=== PATIENT | female | born 1975 | race Caucasian/White ===

== ENCOUNTER 2016-06-19 12:47 | Inpatient (IN) | payer MEDICAID ==
[~2016-06-19] VITALS: Ht 160 cm; Wt 84.1 kg
[~2016-06-19 12:47] MED LIST: CLON.3 PO; LITH300C3 PO; RISP3 PO; SERT50TA12 PO
[2016-06-19 17:50] VITALS: BP 133/87
[2016-06-19] MEDS ORDERED: PNEUMOCOCCAL VACCINE POLYVALENT 0.5 ML VIAL [PPSV23] IM ONE (18:15)
[2016-06-19] MEDS ORDERED: INFLUENZA VIRUS VACCINE QVS 2016-17 (3YR+)/PF 60 MCG/0.5 ML SYRINGE IM ONE (18:15)
[2016-06-19] MEDS: LITHIUM CARBONATE 300 MG CAPSULE PO SCH ×2 (18:55→19:29)
[2016-06-19] MEDS: RisperiDONE 3 MG TABLET PO SCH ×2 (18:55→19:29)
[2016-06-19 19:15] VITALS: BP 126/84
[2016-06-19] MEDS: LORazepam 2 MG TABLET PO PRN (19:36)
[2016-06-19] MEDS: SERTRALINE HCL 100 MG TABLET PO SCH (21:00)
[2016-06-20 00:55] VITALS: BP 117/96
[2016-06-20] MEDS: ZOLPIDEM TARTRATE 10 MG TABLET PO PRN ×2 (01:02→20:46)
[2016-06-20] MEDS: LORazepam 2 MG TABLET PO PRN ×4 (01:02→17:24)
[2016-06-20 06:30] VITALS: BP 121/68
[2016-06-20 08:17] VITALS: BP 128/86
[2016-06-20] MEDS: LITHIUM CARBONATE 300 MG CAPSULE PO SCH ×2 (09:00→17:00)
[2016-06-20] MEDS: RisperiDONE 3 MG TABLET PO SCH ×2 (09:00→17:00)
[2016-06-20] MEDS: NICOTINE 21 MG/24 HOUR PATCH TD SCH (09:11)
[2016-06-20 09:13] LABS: GLUCOSE, URINE (UA) NEGATIVE (NEGATIVE); KETONES,URINE 15 mg/dL (NEGATIVE); LEUKOCYTE ESTERASE ,URINE NEGATIVE (NEGATIVE); OCCULT BLOOD,URINE NEGATIVE (NEGATIVE); PROTEIN,URINE NEGATIVE (NEGATIVE)
[2016-06-20 09:15] LABS: ADD UA MICROSCOPIC YES; APPEARANCE,URINE CLOUDY (CLEAR)
[2016-06-20 09:41] LABS: AMORPHOUS SEDIMENT,UR Many /LPF (None Seen); CALCIUM OXALATE CRYSTALS,UR Few /LPF (None Seen); RBC,URINE 0-2 /HPF (0-2); SQUAMOUS EPITHELIAL CELL,UR Rare /LPF (None Seen); WBC,URINE 0-2 /HPF (0-5)
[2016-06-20 16:08] VITALS: BP 120/65
[2016-06-20] MEDS: SERTRALINE HCL 100 MG TABLET PO SCH (20:04)
[2016-06-21 00:13] VITALS: BP 122/98
[2016-06-21] MEDS: LORazepam 2 MG TABLET PO PRN ×4 (05:12→19:22)
[2016-06-21 05:18] VITALS: BP 140/90
[2016-06-21 08:02] LABS: BASOPHILS # (AUTO) 0.05 K/uL (0.00-0.20); BASOPHILS % (AUTO) 0.6 % (0.0-2.0); EOSINOPHILS # (AUTO) 0.11 K/uL (0.00-0.70); EOSINOPHILS % (AUTO) 1.39 % (1.0-6.0); HEMOGLOBIN 14.8 g/dL (12.0-16.0); LYMPHOCYTES # (AUTO) 2.9 K/uL (1.0-4.8); LYMPHOCYTES % (AUTO) 35.3 % (22.0-44.0); MEAN CORPUSCULAR HEMOGLOBIN 31.6 pg (26.0-34.0); MEAN CORPUSCULAR HGB CONC 34.4 G/dL (31.0-37.0); MEAN CORPUSCULAR VOLUME 92 fL (80-100); MONOCYTES # (AUTO) 0.6 K/uL (0.1-1.0); MONOCYTES % (AUTO) 6.9 % (2.0-9.0); NEUTROPHILS # (AUTO) 4.6 K/uL (1.8-7.7); NEUTROPHILS % (AUTO) 55.8 % (40.0-70.0); PLATELET COUNT (AUTO) 286 K/uL (150-450); RED BLOOD CELL COUNT(AUTO) 4.68 MIL/uL (4.00-5.20); RED CELL DISTRIBUTION WIDTH 13.3 % (11.5-14.5); WHITE BLOOD COUNT (AUTO) 8.2 K/uL (4.5-11.0)
[2016-06-21 08:06] VITALS: BP 118/72
[2016-06-21 08:08] LABS: ALANINE AMINOTRANSFERASE 22 U/L (12-78); ALBUMIN 3.9 g/dL (3.4-5.0); ANION GAP 11 mmol/L (8-16); ASPARTATE AMINOTRANSFERASE 14 U/L (15-37); BILIRUBIN,TOTAL 0.6 mg/dL (0.1-1.0); CALCIUM, TOTAL 8.5 mg/dL (8.8-10.5); CARBON DIOXIDE 24 mmol/L (22-29); CHLORIDE 103 mmol/L (98-107); CREATININE 0.88 mg/dL (0.60-1.30); GLOMERULAR FILTR. RATE CALC > 60 mL/min (>60); POTASSIUM 4.1 mmol/L (3.5-5.1); SODIUM SERUM 138 mmol/L (136-145); TOTAL PROTEIN, SERUM 7.1 g/dL (6.4-8.2); UREA NITROGEN, BLOOD 15 mg/dL (7-18)
[2016-06-21 08:36] LABS: LITHIUM < 0.20 mmol/L (0.60-1.20)
[2016-06-21] MEDS: RisperiDONE 3 MG TABLET PO SCH ×2 (09:00→16:29)
[2016-06-21] MEDS: LITHIUM CARBONATE 300 MG CAPSULE PO SCH ×2 (09:00→16:29)
[2016-06-21] MEDS: NICOTINE 21 MG/24 HOUR PATCH TD SCH (09:31)
[2016-06-21 16:09] VITALS: BP 120/89
[2016-06-21] MEDS: SERTRALINE HCL 100 MG TABLET PO SCH (20:10)
[2016-06-21] MEDS: ZOLPIDEM TARTRATE 10 MG TABLET PO PRN (20:10)
[2016-06-22 04:36] VITALS: BP 130/95
[2016-06-22] MEDS: LORazepam 2 MG TABLET PO PRN ×4 (05:17→20:38)
[2016-06-22] MEDS: NICOTINE 21 MG/24 HOUR PATCH TD SCH (08:45)
[2016-06-22] MEDS: RisperiDONE 3 MG TABLET PO SCH ×2 (08:46→16:08)
[2016-06-22] MEDS: LITHIUM CARBONATE 300 MG CAPSULE PO SCH ×2 (08:46→17:00)
[2016-06-22 08:50] VITALS: BP 124/85
[2016-06-22 16:00] VITALS: BP 127/88
[2016-06-22] MEDS: SERTRALINE HCL 100 MG TABLET PO SCH (20:34)
[2016-06-23 06:56] VITALS: BP 120/75
[2016-06-23] MEDS: LORazepam 2 MG TABLET PO PRN ×3 (07:22→17:18)
[2016-06-23 08:59] VITALS: BP 129/83
[2016-06-23] MEDS: LITHIUM CARBONATE 300 MG CAPSULE PO SCH (09:00)
[2016-06-23] MEDS: RisperiDONE 3 MG TABLET PO SCH ×2 (09:45→17:18)
[2016-06-23] MEDS: NICOTINE 21 MG/24 HOUR PATCH TD SCH (09:46)
[2016-06-23] MEDS ORDERED: HALOPERIDOL LACTATE 5 MG/ML VIAL IM ONE (14:00)
[2016-06-23] MEDS ORDERED: LORazepam 2 MG/ML VIAL IM ONE (14:00)
[2016-06-23] MEDS ORDERED: DiphenhydrAMINE HCL 50 MG/ML VIAL IM ONE (14:00)
[2016-06-23 16:01] VITALS: BP 145/102
[2016-06-23] MEDS: SERTRALINE HCL 100 MG TABLET PO SCH (20:44)
[2016-06-23] MEDS: ZOLPIDEM TARTRATE 10 MG TABLET PO PRN (20:44)
[2016-06-23] MEDS: OLANZapine 10 MG TABLET PO SCH (21:08)
[2016-06-24] MEDS: LORazepam 2 MG TABLET PO PRN ×4 (08:16→20:50)
[2016-06-24] MEDS: NICOTINE 21 MG/24 HOUR PATCH TD SCH (08:16)
[2016-06-24] MEDS: RisperiDONE 3 MG TABLET PO SCH ×2 (08:17→17:21)
[2016-06-24 08:54] VITALS: BP 122/79
[2016-06-24 16:08] VITALS: BP 143/104
[2016-06-24] MEDS ORDERED: CloNIDine HCL 0.1 MG TABLET PO PRN (19:30)
[2016-06-24] MEDS: ZOLPIDEM TARTRATE 10 MG TABLET PO PRN (20:26)
[2016-06-24] MEDS: SERTRALINE HCL 100 MG TABLET PO SCH (20:26)
[2016-06-24] MEDS: OLANZapine 10 MG TABLET PO SCH (20:26)
[2016-06-25 06:57] VITALS: BP 138/90
[2016-06-25 08:25] VITALS: BP 130/86
[2016-06-25] MEDS: NICOTINE 21 MG/24 HOUR PATCH TD SCH (08:27)
[2016-06-25] MEDS: RisperiDONE 3 MG TABLET PO SCH (08:27)
[2016-06-25] MEDS: LORazepam 2 MG TABLET PO PRN ×2 (08:52→12:52)
[2016-06-25] MEDS ORDERED: AmLODIPine BESYLATE 5 MG TABLET PO SCH (09:00)
[2016-06-25] MEDS ORDERED: OLAN10TA6 PO (12:28)
[2016-06-25] MEDS ORDERED: AMLO-511 PO (12:28)
[2016-06-25] MEDS ORDERED: SERT100T12 PO (12:28)
== END 2016-06-25 13:15 | disposition home or self-care (01) | DRG 750 ==
LOC: B2S 18:44 → EDSTATUS 18:52 → B2S 06-20 16:22 → B3A 06-23 14:15
DX: F25.1 Schizoaffective disorder, depressive type (principal); R45.851 Suicidal ideations; I10 Essential (primary) hypertension; F32.9 Major depressive disorder, single episode, unspecified; J45.909 Unspecified asthma, uncomplicated; F17.210 Nicotine dependence, cigarettes, uncomplicated; E78.1 Pure hyperglyceridemia; E87.6 Hypokalemia; F12.90 Cannabis use, unspecified, uncomplicated; Z86.718 Personal history of other venous thrombosis and embolism; Z71.89 Other specified counseling; Z88.6 Allergy status to analgesic agent; Z88.1 Allergy status to other antibiotic agents; Z88.2 Allergy status to sulfonamides; Z28.20 Immunization not carried out because of patient decision for unspecified reason
CPT/HCPCS: 87081; J1200; J1630; J2060

== ENCOUNTER 2016-06-30 11:46 | Inpatient (IN) | payer MEDICAID ==
[~2016-06-30] VITALS: Ht 160 cm; Wt 86.2 kg
[~2016-06-30 11:46] MED LIST changes: +AMLO-511 PO; -CLON.3 PO; -LITH300C3 PO; +OLAN10TA6 PO; +SERT100T12 PO; -SERT50TA12 PO
[2016-06-30] MEDS ORDERED: HALOPERIDOL 5 MG TABLET PO PRN (13:15)
[2016-06-30] MEDS: LORazepam 2 MG TABLET PO PRN (14:46)
[2016-06-30] MEDS ORDERED: PNEUMOCOCCAL VACCINE POLYVALENT 0.5 ML VIAL [PPSV23] IM ONE (15:00)
[2016-06-30] MEDS ORDERED: INFLUENZA VIRUS VACCINE QVS 2016-17 (3YR+)/PF 60 MCG/0.5 ML SYRINGE IM ONE (15:00)
[2016-06-30 15:20] VITALS: BP 109/54
[2016-06-30 16:18] VITALS: BP 109/72
[2016-06-30] MEDS: RisperiDONE 3 MG TABLET PO SCH (16:19)
[2016-06-30] MEDS: SERTRALINE HCL 100 MG TABLET PO SCH (20:16)
[2016-06-30] MEDS: OLANZapine 10 MG RAPDIS TABLET PO SCH (21:00)
[2016-07-01 05:15] VITALS: BP 124/85
[2016-07-01] MEDS: LORazepam 2 MG TABLET PO PRN ×3 (05:17→16:30)
[2016-07-01 09:05] VITALS: BP 128/76
[2016-07-01] MEDS: AmLODIPine BESYLATE 2.5 MG TABLET PO SCH (10:04)
[2016-07-01] MEDS: RisperiDONE 3 MG TABLET PO SCH ×2 (10:04→16:32)
[2016-07-01 16:10] VITALS: BP 116/67
[2016-07-01] MEDS: NICOTINE 21 MG/24 HOUR PATCH TD SCH (16:28)
[2016-07-01] MEDS: ZOLPIDEM TARTRATE 10 MG TABLET PO PRN (20:41)
[2016-07-01] MEDS: SERTRALINE HCL 100 MG TABLET PO SCH (20:41)
[2016-07-01] MEDS: OLANZapine 10 MG RAPDIS TABLET PO SCH (20:42)
[2016-07-02 00:32] VITALS: BP 116/66
[2016-07-02] MEDS: LORazepam 2 MG TABLET PO PRN ×3 (00:34→15:12)
[2016-07-02 08:37] VITALS: BP 129/92
[2016-07-02 08:51] LABS: BASOPHILS % (AUTO) 0.4 % (0.0-2.0); EOSINOPHILS % (AUTO) 1.2 % (1.0-6.0); HEMATOCRIT 43.9 % (36-46); HEMOGLOBIN 14.7 g/dL (12.0-16.0); LYMPHOCYTES # (AUTO) 2.6 K/uL (1.0-4.8); LYMPHOCYTES % (AUTO) 27.5 % (22.0-44.0); MEAN CORPUSCULAR HEMOGLOBIN 30.9 pg (26.0-34.0); MEAN CORPUSCULAR HGB CONC 33.5 G/dL (31.0-37.0); MEAN CORPUSCULAR VOLUME 92 fL (80-100); MONOCYTES # (AUTO) 0.5 K/uL (0.1-1.0); MONOCYTES % (AUTO) 5.2 % (2.0-9.0); NEUTROPHILS # (AUTO) 6.3 K/uL (1.8-7.7); NEUTROPHILS % (AUTO) 65.7 % (40.0-70.0); PLATELET COUNT (AUTO) 289 K/uL (150-450); RED BLOOD CELL COUNT(AUTO) 4.76 MIL/uL (4.00-5.20); RED CELL DISTRIBUTION WIDTH 13.6 % (11.5-14.5); WHITE BLOOD COUNT (AUTO) 9.5 K/uL (4.5-11.0)
[2016-07-02] MEDS ORDERED: DiphenhydrAMINE HCL 50 MG/ML VIAL ONE (09:02)
[2016-07-02] MEDS ORDERED: LORazepam 2 MG/ML VIAL ONE (09:02)
[2016-07-02] MEDS ORDERED: HALOPERIDOL LACTATE 5 MG/ML VIAL ONE (09:02)
[2016-07-02] MEDS: NICOTINE 21 MG/24 HOUR PATCH TD SCH (09:11)
[2016-07-02] MEDS: RisperiDONE 3 MG TABLET PO SCH ×2 (09:12→16:01)
[2016-07-02] MEDS: AmLODIPine BESYLATE 2.5 MG TABLET PO SCH (09:12)
[2016-07-02 09:13] LABS: ALANINE AMINOTRANSFERASE 25 U/L (12-78); ALBUMIN 3.6 g/dL (3.4-5.0); ANION GAP 12 mmol/L (8-16); ASPARTATE AMINOTRANSFERASE 15 U/L (15-37); BILIRUBIN,TOTAL 0.4 mg/dL (0.1-1.0); CALCIUM, TOTAL 8.4 mg/dL (8.8-10.5); CARBON DIOXIDE 23 mmol/L (22-29); CHLORIDE 104 mmol/L (98-107); CREATININE 0.78 mg/dL (0.60-1.30); GLOMERULAR FILTR. RATE CALC > 60 mL/min (>60); POTASSIUM 3.5 mmol/L (3.5-5.1); SODIUM SERUM 139 mmol/L (136-145); TOTAL PROTEIN, SERUM 7.1 g/dL (6.4-8.2); UREA NITROGEN, BLOOD 10 mg/dL (7-18)
[2016-07-02] MEDS ORDERED: DiphenhydrAMINE HCL 50 MG/ML VIAL IM ONE (09:30)
[2016-07-02] MEDS ORDERED: HALOPERIDOL LACTATE 5 MG/ML VIAL IM ONE (09:30)
[2016-07-02] MEDS ORDERED: LORazepam 2 MG/ML VIAL IM ONE (09:30)
[2016-07-02] MEDS: CloNIDine HCL 0.1 MG TABLET PO SCH (16:01)
[2016-07-02 16:21] VITALS: BP 132/77
[2016-07-02] MEDS: SERTRALINE HCL 100 MG TABLET PO SCH (20:23)
[2016-07-02] MEDS: RisperiDONE 2 MG TABLET PO SCH (20:23)
[2016-07-03 06:30] VITALS: BP 126/72
[2016-07-03] MEDS: LORazepam 2 MG TABLET PO PRN (06:48)
[2016-07-03 08:37] VITALS: BP 134/105
[2016-07-03] MEDS: NICOTINE 21 MG/24 HOUR PATCH TD SCH (08:44)
[2016-07-03] MEDS: CloNIDine HCL 0.1 MG TABLET PO SCH ×2 (08:44→16:09)
[2016-07-03] MEDS: RisperiDONE 3 MG TABLET PO SCH ×2 (08:44→16:09)
[2016-07-03 09:08] VITALS: BP 133/78
[2016-07-03] MEDS: TraMADol HCL 50 MG TABLET PO PRN ×2 (09:10→16:09)
[2016-07-03 10:10] VITALS: BP 128/75
[2016-07-03] MEDS ORDERED: HALOPERIDOL LACTATE 5 MG/ML VIAL ONE (10:11)
[2016-07-03] MEDS ORDERED: DiphenhydrAMINE HCL 50 MG/ML VIAL ONE (10:11)
[2016-07-03] MEDS ORDERED: HALOPERIDOL LACTATE 5 MG/ML VIAL IM ONE (10:15)
[2016-07-03] MEDS ORDERED: DiphenhydrAMINE HCL 50 MG/ML VIAL IM ONE (10:15)
[2016-07-03] MEDS ORDERED: LORazepam 2 MG TABLET PO PRN (10:30)
[2016-07-03 10:57] VITALS: BP 114/74
[2016-07-03 16:09] VITALS: BP 118/70
[2016-07-03] MEDS: SERTRALINE HCL 100 MG TABLET PO SCH (20:27)
[2016-07-03] MEDS: RisperiDONE 2 MG TABLET PO SCH (20:27)
[2016-07-04] MEDS: LORazepam 1 MG TABLET PO PRN ×3 (06:32→16:50)
[2016-07-04] MEDS: TraMADol HCL 50 MG TABLET PO PRN ×2 (06:33→13:44)
[2016-07-04] MEDS: NICOTINE 21 MG/24 HOUR PATCH TD SCH (08:45)
[2016-07-04] MEDS: CloNIDine HCL 0.1 MG TABLET PO SCH ×2 (08:45→16:18)
[2016-07-04] MEDS: RisperiDONE 3 MG TABLET PO SCH ×2 (08:45→16:18)
[2016-07-04 08:56] VITALS: BP 123/71
[2016-07-04 13:44] VITALS: BP 120/74
[2016-07-04 16:25] VITALS: BP 133/73
[2016-07-04] MEDS: ACETAMINOPHEN 325 MG TABLET PO PRN (17:35)
[2016-07-04] MEDS: SERTRALINE HCL 100 MG TABLET PO SCH (20:24)
[2016-07-04] MEDS: RisperiDONE 2 MG TABLET PO SCH (20:24)
[2016-07-04] MEDS: ZOLPIDEM TARTRATE 10 MG TABLET PO PRN (20:27)
[2016-07-05 05:33] VITALS: BP 126/93
[2016-07-05] MEDS: TraMADol HCL 50 MG TABLET PO PRN ×3 (05:39→18:06)
[2016-07-05] MEDS: LORazepam 1 MG TABLET PO PRN ×4 (05:39→19:30)
[2016-07-05] MEDS: RisperiDONE 3 MG TABLET PO SCH ×2 (09:33→16:21)
[2016-07-05] MEDS: NICOTINE 21 MG/24 HOUR PATCH TD SCH (09:33)
[2016-07-05 09:45] VITALS: BP 111/77
[2016-07-05] MEDS: CloNIDine HCL 0.1 MG TABLET PO SCH ×2 (09:54→16:21)
[2016-07-05 10:35] VITALS: BP 138/92
[2016-07-05] MEDS: ACETAMINOPHEN 325 MG TABLET PO PRN (13:10)
[2016-07-05 16:00] VITALS: BP 115/81
[2016-07-05 18:04] VITALS: BP 120/84
[2016-07-05] MEDS: SERTRALINE HCL 100 MG TABLET PO SCH (20:03)
[2016-07-05] MEDS: RisperiDONE 2 MG TABLET PO SCH (20:03)
[2016-07-05] MEDS: ZOLPIDEM TARTRATE 10 MG TABLET PO PRN (21:02)
[2016-07-06 01:20] VITALS: BP 113/76
[2016-07-06] MEDS: LORazepam 1 MG TABLET PO PRN ×4 (01:24→19:03)
[2016-07-06] MEDS: CloNIDine HCL 0.1 MG TABLET PO SCH ×2 (08:28→16:37)
[2016-07-06] MEDS: RisperiDONE 3 MG TABLET PO SCH ×2 (08:28→16:25)
[2016-07-06] MEDS: SERTRALINE HCL 100 MG TABLET PO SCH (08:28)
[2016-07-06] MEDS: NICOTINE 21 MG/24 HOUR PATCH TD SCH (08:29)
[2016-07-06] MEDS: TraMADol HCL 50 MG TABLET PO PRN ×2 (08:38→15:49)
[2016-07-06 08:55] VITALS: BP 126/81
[2016-07-06] MEDS ORDERED: MAGNESIUM HYDROXIDE SUSPENSION 30 ML UDCUP PO PRN (15:15)
[2016-07-06 15:49] VITALS: BP 120/80
[2016-07-06 16:51] VITALS: BP 115/70
[2016-07-06] MEDS: RisperiDONE 2 MG TABLET PO SCH (20:41)
[2016-07-06] MEDS: ZOLPIDEM TARTRATE 10 MG TABLET PO PRN (21:01)
[2016-07-07 07:01] VITALS: BP 132/82
[2016-07-07] MEDS: LORazepam 1 MG TABLET PO PRN (07:16)
[2016-07-07 08:53] VITALS: BP 127/94
[2016-07-07] MEDS: SERTRALINE HCL 100 MG TABLET PO SCH (09:16)
[2016-07-07] MEDS: CloNIDine HCL 0.1 MG TABLET PO SCH (09:16)
[2016-07-07] MEDS: NICOTINE 21 MG/24 HOUR PATCH TD SCH (09:16)
[2016-07-07] MEDS: RisperiDONE 3 MG TABLET PO SCH (09:16)
[2016-07-07] MEDS: TraMADol HCL 50 MG TABLET PO PRN (09:16)
[2016-07-07] MEDS ORDERED: CLON.1 PO (09:19)
[2016-07-07] MEDS ORDERED: SERT100T12 PO (09:19)
== END 2016-07-07 10:50 | disposition home or self-care (01) | DRG 750 ==
LOC: B3A 14:16 → EDSTATUS 14:18 → B3A 07-03 16:49
DX: F25.1 Schizoaffective disorder, depressive type (principal); R45.851 Suicidal ideations; I10 Essential (primary) hypertension; F12.90 Cannabis use, unspecified, uncomplicated; J45.909 Unspecified asthma, uncomplicated; F41.9 Anxiety disorder, unspecified; Z88.2 Allergy status to sulfonamides; Z86.718 Personal history of other venous thrombosis and embolism; Z88.8 Allergy status to other drugs, medicaments and biological substances; Z79.899 Other long term (current) drug therapy; Z28.21 Immunization not carried out because of patient refusal
CPT/HCPCS: 73502; 87081; J1200; J1630; J2060

== ENCOUNTER 2016-07-13 18:04 | Inpatient (IN) | payer MEDICAID ==
[~2016-07-13] VITALS: Ht 162.6 cm; Wt 87.1 kg
[~2016-07-13 18:04] MED LIST changes: -AMLO-511 PO; +CLON.1 PO; -OLAN10TA6 PO
[2016-07-13] MEDS ORDERED: INFLUENZA VIRUS VACCINE QVS 2016-17 (3YR+)/PF 60 MCG/0.5 ML SYRINGE IM ONE (18:30)
[2016-07-13] MEDS ORDERED: LORazepam 2 MG TABLET PO PRN (18:30)
[2016-07-13] MEDS ORDERED: PNEUMOCOCCAL VACCINE POLYVALENT 0.5 ML VIAL [PPSV23] IM ONE (18:30)
[2016-07-13 19:23] VITALS: BP 99/67
[2016-07-13 20:31] VITALS: BP 102/69
[2016-07-14 06:02] VITALS: BP 108/63
[2016-07-14] MEDS: NICOTINE 21 MG/24 HOUR PATCH TD SCH (08:05)
[2016-07-14 08:06] LABS: BASOPHILS % (AUTO) 0.6 % (0.0-2.0); EOSINOPHILS % (AUTO) 2.2 % (1.0-6.0); HEMATOCRIT 44.4 % (36-46); HEMOGLOBIN 14.6 g/dL (12.0-16.0); LYMPHOCYTES # (AUTO) 3.4 K/uL (1.0-4.8); LYMPHOCYTES % (AUTO) 34.1 % (22.0-44.0); MEAN CORPUSCULAR HEMOGLOBIN 30.7 pg (26.0-34.0); MEAN CORPUSCULAR HGB CONC 32.9 G/dL (31.0-37.0); MEAN CORPUSCULAR VOLUME 93 fL (80-100); MONOCYTES # (AUTO) 0.6 K/uL (0.1-1.0); MONOCYTES % (AUTO) 5.9 % (2.0-9.0); NEUTROPHILS # (AUTO) 5.6 K/uL (1.8-7.7); NEUTROPHILS % (AUTO) 57.2 % (40.0-70.0); PLATELET COUNT (AUTO) 285 K/uL (150-450); RED BLOOD CELL COUNT(AUTO) 4.76 MIL/uL (4.00-5.20); WHITE BLOOD COUNT (AUTO) 9.9 K/uL (4.5-11.0)
[2016-07-14] MEDS ORDERED: LORazepam 2 MG/ML VIAL ONE (08:11)
[2016-07-14] MEDS ORDERED: DiphenhydrAMINE HCL 50 MG/ML VIAL ONE ×2 (08:12→08:13)
[2016-07-14] MEDS ORDERED: HALOPERIDOL LACTATE 5 MG/ML VIAL ONE (08:12)
[2016-07-14] MEDS ORDERED: DiphenhydrAMINE HCL 50 MG/ML VIAL IM ONE ×3 (08:15)
[2016-07-14] MEDS ORDERED: HALOPERIDOL LACTATE 5 MG/ML VIAL IM ONE ×2 (08:15)
[2016-07-14 08:38] LABS: HEMOGLOBIN A1C 5.2 % (4.5-6.2)
[2016-07-14 08:40] LABS: ALANINE AMINOTRANSFERASE 24 U/L (12-78); ALBUMIN 3.6 g/dL (3.4-5.0); ANION GAP 7 mmol/L (8-16); ASPARTATE AMINOTRANSFERASE 11 U/L (15-37); BILIRUBIN,TOTAL 0.2 mg/dL (0.1-1.0); CALCIUM, TOTAL 8.6 mg/dL (8.8-10.5); CARBON DIOXIDE 26 mmol/L (22-29); CHLORIDE 105 mmol/L (98-107); CHOL/HDL RATIO 4.5 (3.9-5.7); CREATININE 0.92 mg/dL (0.60-1.30); GLOMERULAR FILTR. RATE CALC > 60 mL/min (>60); POTASSIUM 4.2 mmol/L (3.5-5.1); SODIUM SERUM 138 mmol/L (136-145); THYROID STIMULATING HORMONE 0.63 uIU/mL (0.36-3.74); TOTAL PROTEIN, SERUM 6.5 g/dL (6.4-8.2); UREA NITROGEN, BLOOD 11 mg/dL (7-18)
[2016-07-14 08:48] VITALS: BP 107/61
[2016-07-14] MEDS: HydrOXYzine PAMOATE 25 MG CAPSULE PO PRN (10:32)
[2016-07-14 11:38] LABS: APPEARANCE,URINE CLEAR (CLEAR); GLUCOSE, URINE (UA) NEGATIVE (NEGATIVE); KETONES,URINE NEGATIVE (NEGATIVE); LEUKOCYTE ESTERASE ,URINE NEGATIVE (NEGATIVE); OCCULT BLOOD,URINE NEGATIVE (NEGATIVE); PH,URINE 8.5 (5.0-8.0); PROTEIN,URINE NEGATIVE (NEGATIVE)
[2016-07-14 11:40] LABS: ADD UA MICROSCOPIC NO
[2016-07-14] MEDS ORDERED: ACETAMINOPHEN 325 MG TABLET PO PRN (12:00)
[2016-07-14] MEDS ORDERED: IBUPROFEN 600 MG TABLET PO PRN (12:00)
[2016-07-14] MEDS ORDERED: HydrOXYzine PAMOATE 25 MG CAPSULE PO ONE (12:30)
[2016-07-14 16:01] VITALS: BP 117/63
[2016-07-14] MEDS: RisperiDONE 3 MG TABLET PO SCH (16:49)
[2016-07-15] MEDS ORDERED: HALOPERIDOL LACTATE 5 MG/ML VIAL ONE (06:15)
[2016-07-15] MEDS ORDERED: DiphenhydrAMINE HCL 50 MG/ML VIAL IM ONE (06:15)
[2016-07-15] MEDS ORDERED: DiphenhydrAMINE HCL 50 MG/ML VIAL ONE (06:15)
[2016-07-15] MEDS ORDERED: HALOPERIDOL LACTATE 5 MG/ML VIAL IM ONE ×2 (06:15→07:15)
[2016-07-15] MEDS: RisperiDONE 3 MG TABLET PO SCH ×2 (08:49→16:44)
[2016-07-15] MEDS: NICOTINE 21 MG/24 HOUR PATCH TD SCH (08:49)
[2016-07-15] MEDS: SERTRALINE HCL 100 MG TABLET PO SCH (08:49)
[2016-07-15] MEDS: HydrOXYzine PAMOATE 25 MG CAPSULE PO PRN ×2 (12:15→16:45)
[2016-07-15 16:24] VITALS: BP 113/73
[2016-07-15] MEDS: ZOLPIDEM TARTRATE 10 MG TABLET PO PRN (21:03)
[2016-07-16] MEDS: SERTRALINE HCL 100 MG TABLET PO SCH (08:25)
[2016-07-16] MEDS: RisperiDONE 3 MG TABLET PO SCH ×2 (08:25→16:08)
[2016-07-16] MEDS: NICOTINE 21 MG/24 HOUR PATCH TD SCH (08:26)
[2016-07-16 08:33] VITALS: BP 153/88
[2016-07-16] MEDS: HydrOXYzine PAMOATE 25 MG CAPSULE PO PRN (08:48)
[2016-07-16] MEDS: LORazepam 2 MG TABLET PO PRN ×2 (13:52→17:54)
[2016-07-16 16:32] VITALS: BP 131/72
[2016-07-16 18:35] VITALS: BP 129/77
[2016-07-17] MEDS: NICOTINE 21 MG/24 HOUR PATCH TD SCH (08:15)
[2016-07-17] MEDS: RisperiDONE 3 MG TABLET PO SCH ×2 (08:16→16:40)
[2016-07-17] MEDS: SERTRALINE HCL 100 MG TABLET PO SCH (08:16)
[2016-07-17] MEDS: LORazepam 2 MG TABLET PO PRN ×3 (08:16→16:32)
[2016-07-17 08:49] VITALS: BP 117/86
[2016-07-17 14:10] VITALS: BP 114/74
[2016-07-17] MEDS: TraMADol HCL 50 MG TABLET PO PRN (14:10)
[2016-07-17 16:27] VITALS: BP 126/87
[2016-07-18] MEDS: LORazepam 2 MG TABLET PO PRN ×4 (06:55→16:50)
[2016-07-18 08:27] VITALS: BP 120/85
[2016-07-18] MEDS: TraMADol HCL 50 MG TABLET PO PRN ×2 (08:56→19:36)
[2016-07-18] MEDS: RisperiDONE 3 MG TABLET PO SCH ×2 (08:58→16:49)
[2016-07-18] MEDS: SERTRALINE HCL 100 MG TABLET PO SCH (08:59)
[2016-07-18] MEDS: NICOTINE 21 MG/24 HOUR PATCH TD SCH (08:59)
[2016-07-18 16:11] VITALS: BP 130/101
[2016-07-18] MEDS: ZOLPIDEM TARTRATE 10 MG TABLET PO PRN (21:21)
[2016-07-19 04:40] VITALS: BP 128/87
[2016-07-19] MEDS: LORazepam 2 MG TABLET PO PRN ×3 (04:47→16:15)
[2016-07-19 08:01] VITALS: BP 112/77
[2016-07-19] MEDS: NICOTINE 21 MG/24 HOUR PATCH TD SCH (09:15)
[2016-07-19] MEDS: SERTRALINE HCL 100 MG TABLET PO SCH (09:16)
[2016-07-19] MEDS: RisperiDONE 3 MG TABLET PO SCH ×2 (09:16→16:15)
[2016-07-19] MEDS: TraMADol HCL 50 MG TABLET PO PRN (10:15)
[2016-07-19 16:09] VITALS: BP 131/84
[2016-07-20] MEDS: LORazepam 2 MG TABLET PO PRN ×4 (04:35→16:44)
[2016-07-20 04:36] VITALS: BP 136/90
[2016-07-20] MEDS: NICOTINE 21 MG/24 HOUR PATCH TD SCH (08:00)
[2016-07-20] MEDS: RisperiDONE 3 MG TABLET PO SCH ×2 (08:00→16:35)
[2016-07-20] MEDS: SERTRALINE HCL 100 MG TABLET PO SCH (08:01)
[2016-07-20 08:35] VITALS: BP 133/73
[2016-07-20] MEDS: TraMADol HCL 50 MG TABLET PO PRN (10:43)
[2016-07-20 10:44] VITALS: BP 137/96
[2016-07-20 16:18] VITALS: BP 143/90
[2016-07-20] MEDS: ZOLPIDEM TARTRATE 10 MG TABLET PO PRN (20:30)
[2016-07-21 06:19] VITALS: BP 122/93
[2016-07-21] MEDS: LORazepam 2 MG TABLET PO PRN (06:25)
[2016-07-21 08:01] VITALS: BP 134/70
[2016-07-21] MEDS: SERTRALINE HCL 100 MG TABLET PO SCH (09:17)
[2016-07-21] MEDS: RisperiDONE 3 MG TABLET PO SCH (09:17)
[2016-07-21] MEDS: NICOTINE 21 MG/24 HOUR PATCH TD SCH (09:17)
== END 2016-07-21 09:32 | disposition home or self-care (01) | DRG 750 ==
LOC: B3A 18:22 → EDSTATUS 18:27
PROVIDERS: ADMIT Psychiatry & Neurology Child & Adolescent Psychiatry
DX: F25.0 Schizoaffective disorder, bipolar type (principal); R56.9 Unspecified convulsions; R45.851 Suicidal ideations; I10 Essential (primary) hypertension; F17.290 Nicotine dependence, other tobacco product, uncomplicated; F12.90 Cannabis use, unspecified, uncomplicated; J45.909 Unspecified asthma, uncomplicated; S60.221A Contusion of right hand, initial encounter; X58.XXXA Exposure to other specified factors, initial encounter; Z91.19 Patient's noncompliance with other medical treatment and regimen; Z86.718 Personal history of other venous thrombosis and embolism; Z88.2 Allergy status to sulfonamides; Z88.8 Allergy status to other drugs, medicaments and biological substances; Z79.899 Other long term (current) drug therapy; Y93.89 Activity, other specified; Y92.89 Other specified places as the place of occurrence of the external cause; Y99.8 Other external cause status; Z28.21 Immunization not carried out because of patient refusal
CPT/HCPCS: 83036; 84439; 84443; 87081; 90471; J1200; J1630; J2060

== ENCOUNTER 2016-07-14 10:11 | Emergency (ER) | payer MEDICAID ==
[~2016-07-14] VITALS: Ht 162.6 cm; Wt 87.1 kg
[2016-07-14 10:37] VITALS: BP 106/67
== END 2016-07-14 11:20 | disposition home or self-care (01) ==
LOC: EMS 10:13 → EEVIPCON 10:13 → EMS 11:20
DX: S60.221A Contusion of right hand, initial encounter (principal); J45.909 Unspecified asthma, uncomplicated; I10 Essential (primary) hypertension; F17.210 Nicotine dependence, cigarettes, uncomplicated; Z88.1 Allergy status to other antibiotic agents; Z88.6 Allergy status to analgesic agent; W22.01XA Walked into wall, initial encounter; Y93.89 Activity, other specified; Y92.239 Unspecified place in hospital as the place of occurrence of the external cause; Y99.8 Other external cause status
CPT/HCPCS: 99284

== ENCOUNTER 2016-07-23 06:27 | Inpatient (IN) | payer MEDICAID ==
[~2016-07-23] VITALS: Ht 162.6 cm; Wt 89.4 kg
[~2016-07-23 06:27] MED LIST changes: -CLON.1 PO
[2016-07-23 09:11] VITALS: BP 101/67
[2016-07-23] MEDS ORDERED: HALOPERIDOL 5 MG TABLET PO PRN (09:15)
[2016-07-23] MEDS ORDERED: ZOLPIDEM TARTRATE 10 MG TABLET PO PRN (09:15)
[2016-07-23] MEDS ORDERED: INFLUENZA VIRUS VACCINE QVS 2016-17 (3YR+)/PF 60 MCG/0.5 ML SYRINGE IM ONE (10:15)
[2016-07-23] MEDS: LORazepam 2 MG TABLET PO PRN ×2 (10:21→15:41)
[2016-07-23 10:39] VITALS: BP 105/73
[2016-07-23] MEDS: RisperiDONE 3 MG TABLET PO SCH (16:01)
[2016-07-23 16:14] VITALS: BP 112/73
[2016-07-24 04:05] VITALS: BP 117/79
[2016-07-24] MEDS: LORazepam 2 MG TABLET PO PRN ×2 (04:12→09:46)
[2016-07-24 08:14] LABS: BASOPHILS % (AUTO) 0.7 % (0.0-2.0); EOSINOPHILS % (AUTO) 2.2 % (1.0-6.0); HEMATOCRIT 43.8 % (36-46); HEMOGLOBIN 14.4 g/dL (12.0-16.0); MEAN CORPUSCULAR HEMOGLOBIN 30.7 pg (26.0-34.0); MEAN CORPUSCULAR VOLUME 93 fL (80-100); MONOCYTES # (AUTO) 0.4 K/uL (0.1-1.0); MONOCYTES % (AUTO) 5.1 % (2.0-9.0); NEUTROPHILS # (AUTO) 4.1 K/uL (1.8-7.7); PLATELET COUNT (AUTO) 262 K/uL (150-450); RED CELL DISTRIBUTION WIDTH 13.4 % (11.5-14.5); WHITE BLOOD COUNT (AUTO) 7.8 K/uL (4.5-11.0)
[2016-07-24 08:17] VITALS: BP 111/77
[2016-07-24 08:35] LABS: GLUCOSE, URINE (UA) NEGATIVE (NEGATIVE); KETONES,URINE NEGATIVE (NEGATIVE); LEUKOCYTE ESTERASE ,URINE NEGATIVE (NEGATIVE); OCCULT BLOOD,URINE NEGATIVE (NEGATIVE); PROTEIN,URINE NEGATIVE (NEGATIVE)
[2016-07-24 08:36] LABS: ADD UA MICROSCOPIC NO; APPEARANCE,URINE HAZY (CLEAR)
[2016-07-24 08:44] LABS: ALANINE AMINOTRANSFERASE 21 U/L (12-78); ALBUMIN 3.5 g/dL (3.4-5.0); ANION GAP 8 mmol/L (8-16); ASPARTATE AMINOTRANSFERASE 14 U/L (15-37); BILIRUBIN,TOTAL 0.3 mg/dL (0.1-1.0); CALCIUM, TOTAL 8.6 mg/dL (8.8-10.5); CARBON DIOXIDE 28 mmol/L (22-29); CHLORIDE 106 mmol/L (98-107); CREATININE 0.91 mg/dL (0.60-1.30); GLOMERULAR FILTR. RATE CALC > 60 mL/min (>60); POTASSIUM 4.1 mmol/L (3.5-5.1); SODIUM SERUM 142 mmol/L (136-145); TOTAL PROTEIN, SERUM 6.6 g/dL (6.4-8.2); UREA NITROGEN, BLOOD 13 mg/dL (7-18)
[2016-07-24] MEDS ORDERED: SERTRALINE HCL 100 MG TABLET PO SCH (09:00)
[2016-07-24] MEDS: RisperiDONE 3 MG TABLET PO SCH (09:46)
== END 2016-07-24 14:45 | disposition home or self-care (01) | DRG 750 ==
LOC: EDSTATUS 09:03 → B3A 09:18
DX: F25.0 Schizoaffective disorder, bipolar type (principal); R45.851 Suicidal ideations; G40.909 Epilepsy, unspecified, not intractable, without status epilepticus; I10 Essential (primary) hypertension; J45.909 Unspecified asthma, uncomplicated; E78.1 Pure hyperglyceridemia; F12.90 Cannabis use, unspecified, uncomplicated; F17.200 Nicotine dependence, unspecified, uncomplicated; Z79.899 Other long term (current) drug therapy; Z28.21 Immunization not carried out because of patient refusal; Z86.718 Personal history of other venous thrombosis and embolism; Z91.410 Personal history of adult physical and sexual abuse; Z91.411 Personal history of adult psychological abuse
CPT/HCPCS: 80307; 87081; 90471

== ENCOUNTER 2016-08-03 12:43 | Inpatient (IN) | payer MEDICAID ==
[~2016-08-03] VITALS: Ht 162.6 cm; Wt 85.1 kg
[2016-08-03 14:39] VITALS: BP 103/77
[2016-08-03] MEDS: SERTRALINE HCL 100 MG TABLET PO SCH (14:45)
[2016-08-03] MEDS: LORazepam 2 MG TABLET PO PRN (16:00)
[2016-08-03] MEDS: RisperiDONE 3 MG TABLET PO SCH (16:05)
[2016-08-03 16:10] VITALS: BP 110/74
[2016-08-03] MEDS ORDERED: INFLUENZA VIRUS VACCINE QVS 2016-17 (3YR+)/PF 60 MCG/0.5 ML SYRINGE IM ONE (17:30)
[2016-08-03] MEDS ORDERED: PNEUMOCOCCAL VACCINE POLYVALENT 0.5 ML VIAL [PPSV23] IM ONE (17:30)
[2016-08-03 21:40] VITALS: BP 110/74
[2016-08-04 05:06] VITALS: BP 120/71
[2016-08-04] MEDS: LORazepam 2 MG TABLET PO PRN ×3 (05:08→19:12)
[2016-08-04 08:18] LABS: BASOPHILS % (AUTO) 0.6 % (0.0-2.0); EOSINOPHILS % (AUTO) 1.4 % (1.0-6.0); HEMATOCRIT 45.6 % (36-46); LYMPHOCYTES # (AUTO) 2.3 K/uL (1.0-4.8); LYMPHOCYTES % (AUTO) 30.6 % (22.0-44.0); MEAN CORPUSCULAR HEMOGLOBIN 30.6 pg (26.0-34.0); MEAN CORPUSCULAR HGB CONC 32.9 G/dL (31.0-37.0); MEAN CORPUSCULAR VOLUME 93 fL (80-100); MONOCYTES # (AUTO) 0.4 K/uL (0.1-1.0); MONOCYTES % (AUTO) 5.6 % (2.0-9.0); NEUTROPHILS # (AUTO) 4.7 K/uL (1.8-7.7); NEUTROPHILS % (AUTO) 61.8 % (40.0-70.0); PLATELET COUNT (AUTO) 285 K/uL (150-450); RED BLOOD CELL COUNT(AUTO) 4.91 MIL/uL (4.00-5.20); WHITE BLOOD COUNT (AUTO) 7.6 K/uL (4.5-11.0)
[2016-08-04 08:22] VITALS: BP 114/68
[2016-08-04 08:35] LABS: ALANINE AMINOTRANSFERASE 16 U/L (12-78); ALBUMIN 3.7 g/dL (3.4-5.0); ANION GAP 11 mmol/L (8-16); ASPARTATE AMINOTRANSFERASE 11 U/L (15-37); BILIRUBIN,TOTAL 0.5 mg/dL (0.1-1.0); CALCIUM, TOTAL 8.5 mg/dL (8.8-10.5); CARBON DIOXIDE 25 mmol/L (22-29); CHLORIDE 106 mmol/L (98-107); CHOL/HDL RATIO 4.7 (3.9-5.7); CREATININE 0.82 mg/dL (0.60-1.30); GLOMERULAR FILTR. RATE CALC > 60 mL/min (>60); POTASSIUM 3.8 mmol/L (3.5-5.1); SODIUM SERUM 142 mmol/L (136-145); TOTAL PROTEIN, SERUM 7.4 g/dL (6.4-8.2); UREA NITROGEN, BLOOD 11 mg/dL (7-18)
[2016-08-04] MEDS: SERTRALINE HCL 100 MG TABLET PO SCH (08:43)
[2016-08-04] MEDS: NICOTINE 21 MG/24 HOUR PATCH TD SCH (08:43)
[2016-08-04] MEDS: RisperiDONE 3 MG TABLET PO SCH ×2 (08:43→16:05)
[2016-08-04 09:48] VITALS: BP 114/68
[2016-08-04 16:02] VITALS: BP 119/76
[2016-08-05 00:04] VITALS: BP 128/86
[2016-08-05] MEDS: ZOLPIDEM TARTRATE 10 MG TABLET PO PRN ×2 (00:05→20:18)
[2016-08-05 08:01] VITALS: BP 123/79
[2016-08-05] MEDS: SERTRALINE HCL 100 MG TABLET PO SCH (08:18)
[2016-08-05] MEDS: RisperiDONE 3 MG TABLET PO SCH ×2 (08:19→16:10)
[2016-08-05] MEDS: NICOTINE 21 MG/24 HOUR PATCH TD SCH (08:19)
[2016-08-05] MEDS: LORazepam 2 MG TABLET PO PRN ×3 (08:19→16:22)
[2016-08-05] MEDS ORDERED: ACETAMINOPHEN 500 MG TABLET PO PRN (13:45)
[2016-08-05 16:22] VITALS: BP 129/86
[2016-08-06] MEDS: LORazepam 2 MG TABLET PO PRN ×3 (06:51→18:28)
[2016-08-06 07:01] VITALS: BP 120/78
[2016-08-06] MEDS: RisperiDONE 3 MG TABLET PO SCH ×2 (08:29→17:00)
[2016-08-06] MEDS: NICOTINE 21 MG/24 HOUR PATCH TD SCH (08:29)
[2016-08-06] MEDS: SERTRALINE HCL 100 MG TABLET PO SCH (08:29)
[2016-08-06 08:47] VITALS: BP 130/80
[2016-08-06 17:28] VITALS: BP 130/86
[2016-08-06 18:03] VITALS: BP 129/90
[2016-08-06] MEDS: ZOLPIDEM TARTRATE 10 MG TABLET PO PRN (21:06)
[2016-08-07] MEDS: LORazepam 2 MG TABLET PO PRN ×4 (06:01→18:11)
[2016-08-07 06:28] VITALS: BP 128/82
[2016-08-07 08:11] VITALS: BP 109/54
[2016-08-07] MEDS: RisperiDONE 3 MG TABLET PO SCH ×2 (08:30→16:38)
[2016-08-07] MEDS: SERTRALINE HCL 100 MG TABLET PO SCH (08:30)
[2016-08-07] MEDS: NICOTINE 21 MG/24 HOUR PATCH TD SCH (08:30)
[2016-08-07] MEDS ORDERED: TUBERCULIN, PURIFIED PROTEIN DERIVATIVE 5 TU/0.1 ML SYG ID ONE (12:00)
[2016-08-07 16:11] VITALS: BP 131/85
[2016-08-07] MEDS: ZOLPIDEM TARTRATE 10 MG TABLET PO PRN (20:22)
[2016-08-08] MEDS: LORazepam 2 MG TABLET PO PRN ×3 (06:17→16:09)
[2016-08-08 07:00] VITALS: BP 113/72
[2016-08-08 08:29] VITALS: BP 115/75
[2016-08-08] MEDS: NICOTINE 21 MG/24 HOUR PATCH TD SCH (09:46)
[2016-08-08] MEDS: RisperiDONE 3 MG TABLET PO SCH ×2 (09:46→16:10)
[2016-08-08] MEDS: SERTRALINE HCL 100 MG TABLET PO SCH (09:46)
[2016-08-08] MEDS: HALOPERIDOL 5 MG TABLET PO PRN (16:09)
[2016-08-08 16:19] VITALS: BP 137/98
[2016-08-08] MEDS: ZOLPIDEM TARTRATE 10 MG TABLET PO PRN (20:53)
[2016-08-09 05:45] VITALS: BP 129/93
[2016-08-09] MEDS: LORazepam 2 MG TABLET PO PRN ×3 (05:49→18:26)
[2016-08-09] MEDS: NICOTINE 21 MG/24 HOUR PATCH TD SCH (08:24)
[2016-08-09] MEDS: RisperiDONE 3 MG TABLET PO SCH ×2 (08:24→16:11)
[2016-08-09] MEDS: SERTRALINE HCL 100 MG TABLET PO SCH (08:24)
[2016-08-09 09:09] VITALS: BP 108/67
[2016-08-09 16:10] VITALS: BP 132/91
[2016-08-09] MEDS: HALOPERIDOL 5 MG TABLET PO PRN (18:26)
[2016-08-09] MEDS: ZOLPIDEM TARTRATE 10 MG TABLET PO PRN (21:05)
[2016-08-10] MEDS: LORazepam 2 MG TABLET PO PRN ×3 (06:41→16:56)
[2016-08-10 06:50] VITALS: BP 117/71
[2016-08-10 08:15] VITALS: BP 120/66
[2016-08-10] MEDS: SERTRALINE HCL 100 MG TABLET PO SCH (08:33)
[2016-08-10] MEDS: NICOTINE 21 MG/24 HOUR PATCH TD SCH (08:33)
[2016-08-10] MEDS: RisperiDONE 3 MG TABLET PO SCH ×2 (08:33→16:56)
[2016-08-10 16:07] VITALS: BP 130/95
[2016-08-10] MEDS: HALOPERIDOL 5 MG TABLET PO PRN (16:56)
[2016-08-11 06:41] VITALS: BP 115/74
[2016-08-11] MEDS: LORazepam 2 MG TABLET PO PRN (06:48)
[2016-08-11] MEDS: RisperiDONE 3 MG TABLET PO SCH (08:21)
[2016-08-11] MEDS: SERTRALINE HCL 100 MG TABLET PO SCH (08:21)
[2016-08-11] MEDS: NICOTINE 21 MG/24 HOUR PATCH TD SCH (08:22)
[2016-08-11 08:38] VITALS: BP 124/93
[2016-08-11] MEDS ORDERED: LORATADINE 10 MG TABLET PO SCH (09:00)
[2016-08-11] MEDS ORDERED: LORA10TA7 PO (10:52)
== END 2016-08-11 11:45 | disposition home or self-care (01) | DRG 750 ==
LOC: B2S 14:23 → EDSTATUS 14:28 → B2S 08-04 15:43 → B3A 08-05 13:52
DX: F25.0 Schizoaffective disorder, bipolar type (principal); I10 Essential (primary) hypertension; E78.1 Pure hyperglyceridemia; E87.6 Hypokalemia; F17.210 Nicotine dependence, cigarettes, uncomplicated; F12.10 Cannabis abuse, uncomplicated; Z79.899 Other long term (current) drug therapy; Z91.5 Personal history of self-harm; Z88.2 Allergy status to sulfonamides; Z88.6 Allergy status to analgesic agent; Z88.1 Allergy status to other antibiotic agents; Z28.21 Immunization not carried out because of patient refusal
CPT/HCPCS: 72170; 84436; 84439; 87081; 90471

== ENCOUNTER 2016-08-17 12:24 | Inpatient (IN) | payer MEDICAID ==
[~2016-08-17] VITALS: Ht 162.6 cm; Wt 81.2 kg
[~2016-08-17 12:24] MED LIST changes: +LORA10TA7 PO
[2016-08-17 13:48] VITALS: BP 91/56
[2016-08-17] MEDS ORDERED: PNEUMOCOCCAL VACCINE POLYVALENT 0.5 ML VIAL [PPSV23] IM ONE (16:30)
[2016-08-17] MEDS ORDERED: INFLUENZA VIRUS VACCINE QVS 2016-17 (3YR+)/PF 60 MCG/0.5 ML SYRINGE IM ONE (16:30)
[2016-08-17] MEDS: SERTRALINE HCL 100 MG TABLET PO SCH (16:31)
[2016-08-17 16:37] VITALS: BP 98/60
[2016-08-17 22:29] VITALS: BP 102/62
[2016-08-18 05:25] VITALS: BP 112/65
[2016-08-18] MEDS: LORazepam 2 MG TABLET PO PRN ×4 (05:28→20:18)
[2016-08-18 07:16] LABS: BASOPHILS # (AUTO) 0.04 K/uL (0.00-0.20); BASOPHILS % (AUTO) 0.5 % (0.0-2.0); EOSINOPHILS # (AUTO) 0.19 K/uL (0.00-0.70); HEMATOCRIT 40.3 % (36-46); HEMOGLOBIN 13.8 g/dL (12.0-16.0); LYMPHOCYTES # (AUTO) 3.2 K/uL (1.0-4.8); LYMPHOCYTES % (AUTO) 37.8 % (22.0-44.0); MEAN CORPUSCULAR HEMOGLOBIN 31.5 pg (26.0-34.0); MEAN CORPUSCULAR HGB CONC 34.2 G/dL (31.0-37.0); MEAN CORPUSCULAR VOLUME 92 fL (80-100); MONOCYTES # (AUTO) 0.4 K/uL (0.1-1.0); MONOCYTES % (AUTO) 4.8 % (2.0-9.0); NEUTROPHILS # (AUTO) 4.6 K/uL (1.8-7.7); NEUTROPHILS % (AUTO) 54.7 % (40.0-70.0); PLATELET COUNT (AUTO) 260 K/uL (150-450); RED BLOOD CELL COUNT(AUTO) 4.38 MIL/uL (4.00-5.20); RED CELL DISTRIBUTION WIDTH 14.1 % (11.5-14.5); WHITE BLOOD COUNT (AUTO) 8.5 K/uL (4.5-11.0)
[2016-08-18 07:38] LABS: ALANINE AMINOTRANSFERASE 19 U/L (12-78); ALBUMIN 3.3 g/dL (3.4-5.0); ANION GAP 8 mmol/L (8-16); ASPARTATE AMINOTRANSFERASE 11 U/L (15-37); BILIRUBIN,TOTAL 0.3 mg/dL (0.1-1.0); CALCIUM, TOTAL 8.3 mg/dL (8.8-10.5); CARBON DIOXIDE 26 mmol/L (22-29); CHLORIDE 108 mmol/L (98-107); GLOMERULAR FILTR. RATE CALC > 60 mL/min (>60); POTASSIUM 3.8 mmol/L (3.5-5.1); SODIUM SERUM 142 mmol/L (136-145); TOTAL PROTEIN, SERUM 6.4 g/dL (6.4-8.2); UREA NITROGEN, BLOOD 10 mg/dL (7-18)
[2016-08-18 08:03] LABS: APPEARANCE,URINE TURBID (CLEAR); GLUCOSE, URINE (UA) NEGATIVE (NEGATIVE); KETONES,URINE NEGATIVE (NEGATIVE); LEUKOCYTE ESTERASE ,URINE NEGATIVE (NEGATIVE); OCCULT BLOOD,URINE NEGATIVE (NEGATIVE); PH,URINE 5.5 (5.0-8.0); PROTEIN,URINE NEGATIVE (NEGATIVE)
[2016-08-18 08:32] VITALS: BP 108/69
[2016-08-18 08:45] LABS: ADD UA MICROSCOPIC YES
[2016-08-18] MEDS: SERTRALINE HCL 100 MG TABLET PO SCH (08:49)
[2016-08-18 09:04] LABS: RBC,URINE None Seen /HPF (0-2); SQUAMOUS EPITHELIAL CELL,UR Few /LPF (None Seen); WBC,URINE None Seen /HPF (0-5)
[2016-08-18] MEDS: NICOTINE 21 MG/24 HOUR PATCH TD SCH (11:00)
[2016-08-18 16:18] VITALS: BP 111/70
[2016-08-18 20:15] VITALS: BP 120/75
[2016-08-18] MEDS: QUEtiapine FUMARATE 100 MG TABLET PO SCH (20:18)
[2016-08-18] MEDS: BENZTROPINE MESYLATE 1 MG TABLET PO SCH (20:18)
[2016-08-18] MEDS: ZOLPIDEM TARTRATE 10 MG TABLET PO PRN (21:01)
[2016-08-19 07:05] VITALS: BP 117/83
[2016-08-19] MEDS: LORazepam 2 MG TABLET PO PRN ×3 (07:06→16:01)
[2016-08-19] MEDS: SERTRALINE HCL 100 MG TABLET PO SCH (08:24)
[2016-08-19] MEDS: NICOTINE 21 MG/24 HOUR PATCH TD SCH (08:25)
[2016-08-19 15:55] VITALS: BP 138/82
[2016-08-19] MEDS ORDERED: LORazepam 2 MG/ML VIAL ONE (17:07)
[2016-08-19] MEDS ORDERED: DiphenhydrAMINE HCL 50 MG/ML VIAL ONE (17:07)
[2016-08-19] MEDS ORDERED: HALOPERIDOL LACTATE 5 MG/ML VIAL ONE (17:08)
[2016-08-19] MEDS ORDERED: HALOPERIDOL LACTATE 5 MG/ML VIAL IM ONE (17:15)
[2016-08-19] MEDS ORDERED: LORazepam 2 MG/ML VIAL IM ONE (17:15)
[2016-08-19] MEDS ORDERED: DiphenhydrAMINE HCL 50 MG/ML VIAL IM ONE (17:15)
[2016-08-19 17:26] VITALS: BP 110/74
[2016-08-19 18:13] VITALS: BP 116/77
[2016-08-19] MEDS: QUEtiapine FUMARATE 100 MG TABLET PO SCH (20:47)
[2016-08-19] MEDS: BENZTROPINE MESYLATE 1 MG TABLET PO SCH (20:47)
[2016-08-19] MEDS: ZOLPIDEM TARTRATE 10 MG TABLET PO PRN (21:04)
[2016-08-20 07:27] VITALS: BP 102/75
[2016-08-20 08:47] VITALS: BP 109/62
[2016-08-20] MEDS: LORazepam 2 MG TABLET PO PRN (09:09)
[2016-08-20] MEDS: SERTRALINE HCL 100 MG TABLET PO SCH (09:09)
[2016-08-20] MEDS: NICOTINE 21 MG/24 HOUR PATCH TD SCH (09:11)
[2016-08-20] MEDS ORDERED: QUET100T PO (14:15)
[2016-08-20] MEDS ORDERED: BENZ1TAB10 PO (14:16)
== END 2016-08-20 15:14 | disposition home or self-care (01) | DRG 750 ==
LOC: B3A 15:39
PROVIDERS: ADMIT Psychiatry & Neurology Psychiatry
DX: F25.0 Schizoaffective disorder, bipolar type (principal); R00.1 Bradycardia, unspecified; I10 Essential (primary) hypertension; F12.90 Cannabis use, unspecified, uncomplicated; J30.9 Allergic rhinitis, unspecified; E78.1 Pure hyperglyceridemia; Z88.8 Allergy status to other drugs, medicaments and biological substances; Z79.899 Other long term (current) drug therapy; Z88.2 Allergy status to sulfonamides; Z88.1 Allergy status to other antibiotic agents; Z72.89 Other problems related to lifestyle; Z28.21 Immunization not carried out because of patient refusal
CPT/HCPCS: 84146; 87081; 87086; J1200; J1630; J2060

== ENCOUNTER 2016-12-22 10:09 | Inpatient (IN) | payer MEDICAID ==
[~2016-12-22] VITALS: Ht 162.6 cm; Wt 77.3 kg
[~2016-12-22 10:09] MED LIST changes: +BENZ1TAB10 PO; -LORA10TA7 PO; +QUET100T PO; -RISP3 PO
[2016-12-22 11:00] LABS: BASOPHILS % (AUTO) 0.9 % (0.0-2.0); EOSINOPHILS % (AUTO) 0.3 % (1.0-6.0); HEMOGLOBIN 15.9 g/dL (12.0-16.0); LYMPHOCYTES # (AUTO) 3.1 K/uL (1.0-4.8); MEAN CORPUSCULAR HGB CONC 34.6 G/dL (31.0-37.0); MEAN CORPUSCULAR VOLUME 93 fL (80-100); MONOCYTES # (AUTO) 0.7 K/uL (0.1-1.0); MONOCYTES % (AUTO) 5.8 % (2.0-9.0); NEUTROPHILS # (AUTO) 7.7 K/uL (1.8-7.7); PLATELET COUNT (AUTO) 330 K/uL (150-450); RED BLOOD CELL COUNT(AUTO) 4.97 MIL/uL (4.00-5.20); RED CELL DISTRIBUTION WIDTH 13.1 % (11.5-14.5); WHITE BLOOD COUNT (AUTO) 11.6 K/uL (4.5-11.0)
[2016-12-22 11:14] LABS: ANION GAP 16 mmol/L (8-16); CALCIUM, TOTAL 9.5 mg/dL (8.8-10.5); CARBON DIOXIDE 20 mmol/L (22-29); CHLORIDE 103 mmol/L (98-107); CREATININE 1.07 mg/dL (0.60-1.30); GLOMERULAR FILTR. RATE CALC 56 mL/min (>60); POTASSIUM 3.1 mmol/L (3.5-5.1); SODIUM SERUM 139 mmol/L (136-145); UREA NITROGEN, BLOOD 10 mg/dL (7-18)
[2016-12-22 11:21] LABS: ALANINE AMINOTRANSFERASE 25 U/L (12-78); ALBUMIN 4.6 g/dL (3.4-5.0); ASPARTATE AMINOTRANSFERASE 19 U/L (15-37); BILIRUBIN,TOTAL 0.9 mg/dL (0.1-1.0); TOTAL PROTEIN, SERUM 8.2 g/dL (6.4-8.2)
[2016-12-22] MEDS ORDERED: ZOLPIDEM TARTRATE 10 MG TABLET PO PRN (13:30)
[2016-12-22] MEDS ORDERED: MAG HYDROX/AL HYDROX/SIMETH ES 30 ML SUSPENSION UDCUP PO PRN (13:30)
[2016-12-22] MEDS ORDERED: HydrOXYzine PAMOATE 50 MG CAPSULE PO PRN (13:30)
[2016-12-22] MEDS ORDERED: GuaiFENesin/D-METHORPHAN [SUGAR-FREE] 200-20MG/10 ML SYRUP UDCUP PO PRN (13:30)
[2016-12-22] MEDS ORDERED: ACETAMINOPHEN 325 MG TABLET PO PRN (13:30)
[2016-12-22] MEDS ORDERED: LOPERAMIDE HCL 2 MG CAPSULE PO PRN (13:30)
[2016-12-22] MEDS ORDERED: MAGNESIUM HYDROXIDE SUSPENSION 30 ML UDCUP PO PRN (13:30)
[2016-12-22] MEDS ORDERED: LORazepam 1 MG TABLET PO ONE (13:30)
[2016-12-22] MEDS ORDERED: TUBERCULIN, PURIFIED PROTEIN DERIVATIVE 5 TU/0.1 ML SYG ID ONE (13:30)
[2016-12-22] MEDS ORDERED: QUEtiapine FUMARATE 100 MG TABLET PO PRN (13:30)
[2016-12-22 15:03] LABS: APPEARANCE,URINE TURBID (CLEAR); GLUCOSE, URINE (UA) NEGATIVE (NEGATIVE); KETONES,URINE >=80 mg/dL (NEGATIVE); LEUKOCYTE ESTERASE ,URINE TRACE (NEGATIVE); OCCULT BLOOD,URINE NEGATIVE (NEGATIVE); PH,URINE 6.5 (5.0-8.0); PROTEIN,URINE POS 1+ (NEGATIVE)
[2016-12-22 15:07] LABS: ADD UA MICROSCOPIC YES
[2016-12-22 15:08] LABS: AMORPHOUS SEDIMENT,UR Many /LPF (None Seen); RBC,URINE None Seen /HPF (0-2); SQUAMOUS EPITHELIAL CELL,UR Moderate /LPF (None Seen); WBC,URINE 0-2 /HPF (0-5)
[2016-12-22] MEDS: THIAMINE HCL 100 MG TABLET PO SCH (17:00)
[2016-12-22] MEDS: LORazepam 2 MG TABLET PO PRN (17:11)
[2016-12-22 17:17] VITALS: BP 128/100
[2016-12-22 17:18] VITALS: BP 128/100
[2016-12-22] MEDS ORDERED: PNEUMOCOCCAL VACCINE POLYVALENT 0.5 ML VIAL [PPSV23] IM ONE (17:45)
[2016-12-22 18:20] VITALS: BP 132/88
[2016-12-22 19:03] VITALS: BP 124/87
[2016-12-22 20:15] VITALS: BP 128/76
[2016-12-22] MEDS: QUEtiapine FUMARATE 200 MG TABLET PO SCH (20:42)
[2016-12-22] MEDS ORDERED: SERTRALINE HCL 50 MG TABLET PO SCH (21:00)
[2016-12-22] MEDS: ZOLPIDEM TARTRATE 10 MG TABLET PO PRN (21:18)
[2016-12-22] MEDS ORDERED: POTASSIUM CHLORIDE 20 MEQ ER TABLET PO ONE (23:00)
[2016-12-23 01:25] VITALS: BP 126/76
[2016-12-23 02:57] VITALS: BP 134/100
[2016-12-23] MEDS: LORazepam 2 MG TABLET PO PRN ×2 (02:59→10:39)
[2016-12-23 04:07] VITALS: BP 125/76
[2016-12-23 08:19] LABS: BASOPHILS % (AUTO) 0.6 % (0.0-2.0); EOSINOPHILS % (AUTO) 1.3 % (1.0-6.0); HEMATOCRIT 43.2 % (36-46); LYMPHOCYTES # (AUTO) 2.6 K/uL (1.0-4.8); LYMPHOCYTES % (AUTO) 34.9 % (22.0-44.0); MEAN CORPUSCULAR HGB CONC 34.6 G/dL (31.0-37.0); MEAN CORPUSCULAR VOLUME 93 fL (80-100); MONOCYTES # (AUTO) 0.5 K/uL (0.1-1.0); MONOCYTES % (AUTO) 6.6 % (2.0-9.0); NEUTROPHILS # (AUTO) 4.2 K/uL (1.8-7.7); NEUTROPHILS % (AUTO) 56.6 % (40.0-70.0); PLATELET COUNT (AUTO) 251 K/uL (150-450); RED BLOOD CELL COUNT(AUTO) 4.67 MIL/uL (4.00-5.20); RED CELL DISTRIBUTION WIDTH 13.2 % (11.5-14.5); WHITE BLOOD COUNT (AUTO) 7.5 K/uL (4.5-11.0)
[2016-12-23 08:42] LABS: HEMOGLOBIN A1C 5.3 % (4.5-6.2)
[2016-12-23 08:46] VITALS: BP 106/65
[2016-12-23 09:00] VITALS: BP 106/65
[2016-12-23 09:00] LABS: ALANINE AMINOTRANSFERASE 25 U/L (12-78); ALBUMIN 3.9 g/dL (3.4-5.0); ANION GAP 13 mmol/L (8-16); ASPARTATE AMINOTRANSFERASE 16 U/L (15-37); BILIRUBIN,TOTAL 0.8 mg/dL (0.1-1.0); CARBON DIOXIDE 21 mmol/L (22-29); CHLORIDE 106 mmol/L (98-107); CHOL/HDL RATIO 4.3 (3.9-5.7); CREATININE 0.92 mg/dL (0.60-1.30); GLOMERULAR FILTR. RATE CALC > 60 mL/min (>60); POTASSIUM 3.3 mmol/L (3.5-5.1); SODIUM SERUM 140 mmol/L (136-145); THYROID STIMULATING HORMONE 0.35 uIU/mL (0.36-3.74); TOTAL PROTEIN, SERUM 7.1 g/dL (6.4-8.2); UREA NITROGEN, BLOOD 12 mg/dL (7-18)
[2016-12-23] MEDS: MULTIVITAMINS WITH MINERALS, THERAPEUTIC TABLET PO SCH (09:00)
[2016-12-23] MEDS: THIAMINE HCL 100 MG TABLET PO SCH ×2 (09:00→17:00)
[2016-12-23] MEDS: FOLIC ACID 1 MG TABLET PO SCH (09:00)
[2016-12-23] MEDS: LEVOFLOXACIN 500 MG TABLET PO SCH (09:20)
[2016-12-23] MEDS: LORazepam 2 MG TABLET PO SCH ×4 (09:20→20:41)
[2016-12-23] MEDS ORDERED: LORazepam 2 MG/ML VIAL IM ONE (15:45)
[2016-12-23] MEDS ORDERED: DiphenhydrAMINE HCL 50 MG/ML VIAL IM ONE (15:45)
[2016-12-23] MEDS ORDERED: HALOPERIDOL LACTATE 5 MG/ML VIAL IM ONE (15:45)
[2016-12-23 16:14] VITALS: BP 129/74
[2016-12-23] MEDS: QUEtiapine FUMARATE 200 MG TABLET PO SCH (21:00)
[2016-12-23] MEDS: ZOLPIDEM TARTRATE 10 MG TABLET PO PRN (21:10)
[2016-12-24 00:05] VITALS: BP 128/83
[2016-12-24] MEDS: LORazepam 2 MG TABLET PO PRN ×3 (00:09→18:02)
[2016-12-24 08:27] VITALS: BP 112/66
[2016-12-24 08:28] LABS: ANION GAP 12 mmol/L (8-16); CALCIUM, TOTAL 8.9 mg/dL (8.8-10.5); CARBON DIOXIDE 22 mmol/L (22-29); CHLORIDE 104 mmol/L (98-107); CREATININE 0.89 mg/dL (0.60-1.30); GLOMERULAR FILTR. RATE CALC > 60 mL/min (>60); POTASSIUM 3.4 mmol/L (3.5-5.1); SODIUM SERUM 138 mmol/L (136-145); UREA NITROGEN, BLOOD 10 mg/dL (7-18)
[2016-12-24] MEDS: FOLIC ACID 1 MG TABLET PO SCH ×2 (09:00→09:28)
[2016-12-24] MEDS: MULTIVITAMINS WITH MINERALS, THERAPEUTIC TABLET PO SCH ×3 (09:00→11:02)
[2016-12-24] MEDS: THIAMINE HCL 100 MG TABLET PO SCH ×3 (09:00→16:26)
[2016-12-24] MEDS: LEVOFLOXACIN 500 MG TABLET PO SCH ×2 (09:00→09:28)
[2016-12-24] MEDS: POTASSIUM CHLORIDE 20 MEQ ER TABLET PO ONE ×2 (09:27→10:59)
[2016-12-24] MEDS: LORazepam 2 MG TABLET PO SCH ×4 (09:28→20:37)
[2016-12-24] MEDS ORDERED: HALOPERIDOL LACTATE 5 MG/ML VIAL ONE (11:24)
[2016-12-24] MEDS ORDERED: DiphenhydrAMINE HCL 50 MG/ML VIAL ONE (11:24)
[2016-12-24] MEDS ORDERED: HALOPERIDOL LACTATE 5 MG/ML VIAL IM ONE (11:30)
[2016-12-24] MEDS ORDERED: DiphenhydrAMINE HCL 50 MG/ML VIAL IM ONE (11:30)
[2016-12-24 16:09] VITALS: BP 105/76
[2016-12-24] MEDS: NITROFURANTOIN/NITROFURAN MAC 100 MG CAPSULE [MACROBID] PO SCH (16:26)
[2016-12-24] MEDS ORDERED: QUEtiapine FUMARATE 25 MG TABLET PO PRN (17:30)
[2016-12-24] MEDS: ZOLPIDEM TARTRATE 10 MG TABLET PO PRN (20:37)
[2016-12-24] MEDS ORDERED: QUEtiapine FUMARATE 25 MG TABLET PO SCH (21:00)
[2016-12-25 00:34] VITALS: BP 140/75
[2016-12-25] MEDS: LORazepam 2 MG TABLET PO PRN (00:42)
[2016-12-25] MEDS ORDERED: LORazepam 1 MG TABLET PO PRN (07:00)
[2016-12-25 08:43] VITALS: BP 109/64
[2016-12-25] MEDS ORDERED: NICOTINE 14 MG/24 HOUR PATCH TD SCH (09:00)
[2016-12-25] MEDS: FOLIC ACID 1 MG TABLET PO SCH (09:00)
[2016-12-25] MEDS: NITROFURANTOIN/NITROFURAN MAC 100 MG CAPSULE [MACROBID] PO SCH (09:00)
[2016-12-25] MEDS: THIAMINE HCL 100 MG TABLET PO SCH (09:00)
[2016-12-25] MEDS: LORazepam 1 MG TABLET PO SCH ×2 (09:35→13:01)
[2016-12-25] MEDS: MULTIVITAMINS WITH MINERALS, THERAPEUTIC TABLET PO SCH (09:36)
[2016-12-25] MEDS ORDERED: DIVA500T52 PO (13:26)
[2016-12-25] MEDS ORDERED: QUET25TA34 PO (13:26)
[2016-12-25] MEDS ORDERED: NALT50 PO (13:30)
[2016-12-25] MEDS ORDERED: DIVALPROEX SODIUM 500 MG ER TABLET PO SCH (21:00)
[2016-12-26] MEDS ORDERED: LORazepam 1 MG TABLET PO PRN (07:00)
[2016-12-26] MEDS ORDERED: NALTREXONE HCL 50 MG TABLET PO SCH (09:00)
== END 2016-12-25 15:40 | disposition home or self-care (01) | DRG 750 ==
LOC: EEVIPCON 10:10 → EMS 10:10 → B3A 15:44
PROVIDERS: ADMIT Psychiatry & Neurology Psychiatry; ATTEND Psychiatry & Neurology Psychiatry
DX: F25.9 Schizoaffective disorder, unspecified (principal); G93.41 Metabolic encephalopathy; I82.409 Acute embolism and thrombosis of unspecified deep veins of unspecified lower extremity; F19.20 Other psychoactive substance dependence, uncomplicated; F17.200 Nicotine dependence, unspecified, uncomplicated; J44.9 Chronic obstructive pulmonary disease, unspecified; I10 Essential (primary) hypertension; J40 Bronchitis, not specified as acute or chronic; J45.909 Unspecified asthma, uncomplicated; R56.9 Unspecified convulsions; Z88.8 Allergy status to other drugs, medicaments and biological substances; Z91.14 Patient's other noncompliance with medication regimen; N39.0 Urinary tract infection, site not specified; E78.1 Pure hyperglyceridemia; E87.6 Hypokalemia; F41.9 Anxiety disorder, unspecified; F13.20 Sedative, hypnotic or anxiolytic dependence, uncomplicated
CPT/HCPCS: 83036; 84132; 84439; 84443; 86592; 87081; 99285; G0480; J1200; J1630; J2060

== ENCOUNTER 2017-02-12 15:22 | Inpatient (IN) | payer MEDICAID ==
[~2017-02-12] VITALS: Ht 162.6 cm; Wt 77.1 kg
[~2017-02-12 15:22] MED LIST changes: -BENZ1TAB10 PO; +DIVA500T52 PO; +NALT50TA6 PO; -QUET100T PO; +QUET25TA34 PO; -SERT100T12 PO
[2017-02-12] MEDS ORDERED: LORA2TAB2 PO (15:36)
[2017-02-12] MEDS ORDERED: LORazepam 1 MG TABLET PO ONE (16:15)
[2017-02-12 17:26] LABS: BASOPHILS % (AUTO) 0.6 % (0.0-2.0); EOSINOPHILS % (AUTO) 0.7 % (1.0-6.0); HEMATOCRIT 40.1 % (36-46); HEMOGLOBIN 13.7 g/dL (12.0-16.0); LYMPHOCYTES # (AUTO) 3.3 K/uL (1.0-4.8); LYMPHOCYTES % (AUTO) 38.8 % (22.0-44.0); MEAN CORPUSCULAR HEMOGLOBIN 32.3 pg (26.0-34.0); MEAN CORPUSCULAR HGB CONC 34.3 G/dL (31.0-37.0); MEAN CORPUSCULAR VOLUME 94 fL (80-100); MONOCYTES # (AUTO) 0.4 K/uL (0.1-1.0); MONOCYTES % (AUTO) 4.9 % (2.0-9.0); NEUTROPHILS # (AUTO) 4.7 K/uL (1.8-7.7); PLATELET COUNT (AUTO) 248 K/uL (150-450); RED BLOOD CELL COUNT(AUTO) 4.25 MIL/uL (4.00-5.20); RED CELL DISTRIBUTION WIDTH 13.3 % (11.5-14.5); WHITE BLOOD COUNT (AUTO) 8.5 K/uL (4.5-11.0)
[2017-02-12 17:55] LABS: ANION GAP 12 mmol/L (8-16); CALCIUM, TOTAL 8.6 mg/dL (8.8-10.5); CARBON DIOXIDE 23 mmol/L (22-29); CHLORIDE 105 mmol/L (98-107); CREATININE 0.85 mg/dL (0.60-1.30); GLOMERULAR FILTR. RATE CALC > 60 mL/min (>60); POTASSIUM 3.6 mmol/L (3.5-5.1); SODIUM SERUM 140 mmol/L (136-145); UREA NITROGEN, BLOOD 15 mg/dL (7-18)
[2017-02-12 18:01] LABS: ALANINE AMINOTRANSFERASE 17 U/L (12-78); ASPARTATE AMINOTRANSFERASE 11 U/L (15-37); BILIRUBIN,TOTAL 0.4 mg/dL (0.1-1.0); TOTAL PROTEIN, SERUM 7.2 g/dL (6.4-8.2)
[2017-02-12 20:59] VITALS: BP 91/57
[2017-02-12] MEDS ORDERED: PNEUMOCOCCAL VACCINE POLYVALENT 0.5 ML VIAL [PPSV23] IM ONE (21:15)
[2017-02-13] MEDS: LORazepam 2 MG TABLET PO PRN ×2 (03:33→15:40)
[2017-02-13 03:37] VITALS: BP 107/71
[2017-02-13] MEDS ORDERED: DiphenhydrAMINE HCL 50 MG/ML VIAL IM ONE ×2 (07:30→18:45)
[2017-02-13] MEDS ORDERED: LORazepam 2 MG/ML VIAL ONE (07:30)
[2017-02-13] MEDS ORDERED: LORazepam 2 MG/ML VIAL IM ONE ×2 (07:30→18:45)
[2017-02-13] MEDS ORDERED: HALOPERIDOL LACTATE 5 MG/ML VIAL IM ONE ×2 (07:30→18:45)
[2017-02-13] MEDS ORDERED: HALOPERIDOL LACTATE 5 MG/ML VIAL ONE (07:31)
[2017-02-13] MEDS ORDERED: DiphenhydrAMINE HCL 50 MG/ML VIAL ONE (07:31)
[2017-02-13 07:51] LABS: CHOL/HDL RATIO 4.9 (3.9-5.7); THYROID STIMULATING HORMONE 0.32 uIU/mL (0.36-3.74)
[2017-02-13 08:31] VITALS: BP 130/89
[2017-02-13 20:20] VITALS: BP 126/81
[2017-02-13] MEDS ORDERED: LORazepam 1 MG TABLET PO SCH (21:00)
[2017-02-13] MEDS: NICOTINE 21 MG/24 HOUR PATCH TD SCH (21:07)
[2017-02-13] MEDS: SERTRALINE HCL 50 MG TABLET PO SCH (21:07)
[2017-02-13] MEDS: LORazepam 2 MG TABLET PO SCH (21:07)
[2017-02-14 06:41] VITALS: BP 117/82
[2017-02-14] MEDS: LORazepam 1 MG TABLET PO PRN ×2 (07:23→20:15)
[2017-02-14 08:40] VITALS: BP 112/80
[2017-02-14] MEDS: NICOTINE 21 MG/24 HOUR PATCH TD SCH (08:47)
[2017-02-14] MEDS: LORazepam 2 MG TABLET PO SCH ×3 (08:47→16:41)
[2017-02-14 16:21] VITALS: BP_SYST 115; BP_SYST 120; BP_DIAS 72; BP_DIAS 92
[2017-02-14] MEDS ORDERED: LORazepam 2 MG TABLET PO SCH (17:00)
[2017-02-14] MEDS: ZOLPIDEM TARTRATE 10 MG TABLET PO PRN (20:15)
[2017-02-14] MEDS: SERTRALINE HCL 50 MG TABLET PO SCH (20:15)
[2017-02-15] MEDS: LORazepam 1 MG TABLET PO PRN ×2 (00:47→04:50)
[2017-02-15 00:48] VITALS: BP 137/97
[2017-02-15 04:48] VITALS: BP 135/93
[2017-02-15 08:25] VITALS: BP 110/68
[2017-02-15] MEDS ORDERED: DiphenhydrAMINE HCL 25 MG CAPSULE PO ONE (08:30)
[2017-02-15] MEDS ORDERED: QUEtiapine FUMARATE 25 MG TABLET PO ONE (08:30)
[2017-02-15] MEDS: NICOTINE 21 MG/24 HOUR PATCH TD SCH (09:00)
[2017-02-15] MEDS: ChlordiazePOXIDE HCL 25 MG CAPSULE PO PRN ×3 (10:44→18:41)
[2017-02-15] MEDS ORDERED: DiphenhydrAMINE HCL 50 MG/ML VIAL ONE (12:22)
[2017-02-15] MEDS ORDERED: HALOPERIDOL LACTATE 5 MG/ML VIAL ONE (12:22)
[2017-02-15] MEDS ORDERED: LORazepam 2 MG/ML VIAL IM ONE (12:30)
[2017-02-15] MEDS ORDERED: HALOPERIDOL LACTATE 5 MG/ML VIAL IM ONE (12:30)
[2017-02-15] MEDS ORDERED: DiphenhydrAMINE HCL 50 MG/ML VIAL IM ONE (12:30)
[2017-02-15] MEDS ORDERED: LORazepam 2 MG TABLET PO SCH (17:00)
[2017-02-15] MEDS: SERTRALINE HCL 50 MG TABLET PO SCH (20:17)
[2017-02-15] MEDS: ZOLPIDEM TARTRATE 10 MG TABLET PO PRN (20:17)
[2017-02-16] VITALS (7 sets, daily range): BP systolic 104–121; BP diastolic 61–90
[2017-02-16] MEDS: ChlordiazePOXIDE HCL 25 MG CAPSULE PO PRN ×4 (00:25→22:20)
[2017-02-16] MEDS ORDERED: DiphenhydrAMINE HCL 50 MG/ML VIAL ONE (03:37)
[2017-02-16] MEDS ORDERED: HALOPERIDOL LACTATE 5 MG/ML VIAL ONE (03:37)
[2017-02-16] MEDS ORDERED: LORazepam 2 MG/ML VIAL ONE (03:37)
[2017-02-16] MEDS ORDERED: DiphenhydrAMINE HCL 50 MG/ML VIAL IM ONE ×2 (03:45→11:30)
[2017-02-16] MEDS ORDERED: LORazepam 2 MG/ML VIAL IM ONE ×2 (03:45→11:30)
[2017-02-16] MEDS ORDERED: HALOPERIDOL LACTATE 5 MG/ML VIAL IM ONE ×2 (03:45→11:30)
[2017-02-16] MEDS: NICOTINE 21 MG/24 HOUR PATCH TD SCH (08:48)
[2017-02-16] MEDS: ChlordiazePOXIDE HCL 25 MG CAPSULE PO SCH ×4 (08:48→20:03)
[2017-02-16] MEDS: ARIPiprazole 10 MG TABLET PO SCH (11:30)
[2017-02-16] MEDS: SERTRALINE HCL 50 MG TABLET PO SCH (20:03)
[2017-02-16] MEDS: ZOLPIDEM TARTRATE 10 MG TABLET PO PRN (20:30)
[2017-02-16] MEDS ORDERED: LORazepam 1 MG TABLET PO SCH (21:00)
[2017-02-17] VITALS (8 sets, daily range): BP systolic 104–137; BP diastolic 63–78
[2017-02-17] MEDS: ChlordiazePOXIDE HCL 25 MG CAPSULE PO PRN ×2 (06:45→14:37)
[2017-02-17] MEDS: ChlordiazePOXIDE HCL 25 MG CAPSULE PO SCH ×3 (08:35→16:25)
[2017-02-17] MEDS: ARIPiprazole 10 MG TABLET PO SCH (08:38)
[2017-02-17] MEDS: NICOTINE 21 MG/24 HOUR PATCH TD SCH (08:38)
[2017-02-17] MEDS: HALOPERIDOL 5 MG TABLET PO PRN ×2 (18:31→23:03)
[2017-02-17] MEDS: SERTRALINE HCL 50 MG TABLET PO SCH (20:02)
[2017-02-17] MEDS: ZOLPIDEM TARTRATE 10 MG TABLET PO PRN (20:10)
[2017-02-18 04:00] VITALS: BP 126/85
[2017-02-18 04:30] VITALS: BP 125/85
[2017-02-18] MEDS: HALOPERIDOL 5 MG TABLET PO PRN (04:31)
[2017-02-18] MEDS ORDERED: ChlordiazePOXIDE HCL 10 MG CAPSULE PO PRN (07:00)
[2017-02-18] MEDS ORDERED: SERT100T12 PO (07:58)
[2017-02-18] MEDS ORDERED: ARIP10TA8 PO (07:58)
[2017-02-18 09:00] VITALS: BP 116/89
[2017-02-18] MEDS: ARIPiprazole 10 MG TABLET PO SCH (09:00)
[2017-02-18] MEDS ORDERED: ChlordiazePOXIDE HCL 10 MG CAPSULE PO SCH (09:00)
[2017-02-18] MEDS: NICOTINE 21 MG/24 HOUR PATCH TD SCH (09:00)
[2017-02-18] MEDS ORDERED: ChlordiazePOXIDE HCL 25 MG CAPSULE PO ONE (09:00)
[2017-02-19] MEDS ORDERED: ChlordiazePOXIDE HCL 10 MG CAPSULE PO PRN (07:00)
== END 2017-02-18 10:00 | disposition left against medical advice (07) | DRG 751 ==
LOC: EMS 15:25 → AHU 20:36 → B3A 02-13 20:30
PROVIDERS: ADMIT Psychiatry & Neurology Psychiatry; ATTEND Psychiatry & Neurology Psychiatry
DX: F33.3 Major depressive disorder, recurrent, severe with psychotic symptoms (principal); R45.851 Suicidal ideations; I10 Essential (primary) hypertension; E78.1 Pure hyperglyceridemia; F12.90 Cannabis use, unspecified, uncomplicated; F60.3 Borderline personality disorder; F17.200 Nicotine dependence, unspecified, uncomplicated; F15.90 Other stimulant use, unspecified, uncomplicated; F41.9 Anxiety disorder, unspecified; J45.909 Unspecified asthma, uncomplicated; Z59.0 Homelessness; Z82.49 Family history of ischemic heart disease and other diseases of the circulatory system; Z86.718 Personal history of other venous thrombosis and embolism; Z87.440 Personal history of urinary (tract) infections; Z88.2 Allergy status to sulfonamides; Z88.1 Allergy status to other antibiotic agents
CPT/HCPCS: 84436; 84439; 84443; 87081; 99285; G0480; J1200; J1630; J2060

== ENCOUNTER 2017-03-13 14:18 | Inpatient (IN) | payer MEDICAID ==
[~2017-03-13] VITALS: Ht 162.6 cm; Wt 79.8 kg
[~2017-03-13 14:18] MED LIST changes: +ARIP10TA8 PO; -DIVA500T52 PO; -NALT50TA6 PO; -QUET25TA34 PO; +SERT100T12 PO
[2017-03-13 14:35] VITALS: BP 99/61
[2017-03-13] MEDS ORDERED: PNEUMOCOCCAL VACCINE POLYVALENT 0.5 ML VIAL [PPSV23] IM ONE (15:15)
[2017-03-13] MEDS ORDERED: INFLUENZA VIRUS VACCINE QVS 2017-18 (3YR+)/PF 60 MCG/0.5 ML SYRINGE IM ONE (15:15)
[2017-03-13] MEDS: HALOPERIDOL 5 MG TABLET PO PRN (16:04)
[2017-03-13] MEDS: LORazepam 2 MG TABLET PO PRN ×2 (16:04→21:11)
[2017-03-13 16:27] VITALS: BP 101/64
[2017-03-13] MEDS: NICOTINE 21 MG/24 HOUR PATCH TD SCH (17:07)
[2017-03-13] MEDS ORDERED: LORazepam 2 MG/ML VIAL IM ONE (17:30)
[2017-03-13] MEDS ORDERED: DiphenhydrAMINE HCL 50 MG/ML VIAL IM ONE (17:30)
[2017-03-13] MEDS ORDERED: HALOPERIDOL LACTATE 5 MG/ML VIAL IM ONE (17:30)
[2017-03-13] MEDS: ZOLPIDEM TARTRATE 10 MG TABLET PO PRN (21:47)
[2017-03-14 06:30] VITALS: BP 125/82
[2017-03-14] MEDS: LORazepam 2 MG TABLET PO PRN (07:19)
[2017-03-14 07:21] LABS: BASOPHILS # (AUTO) 0.06 K/uL (0.00-0.20); BASOPHILS % (AUTO) 0.7 % (0.0-2.0); EOSINOPHILS # (AUTO) 0.18 K/uL (0.00-0.70); EOSINOPHILS % (AUTO) 2.11 % (1.0-6.0); HEMATOCRIT 41.4 % (36-46); LYMPHOCYTES # (AUTO) 2.9 K/uL (1.0-4.8); LYMPHOCYTES % (AUTO) 34.8 % (22.0-44.0); MEAN CORPUSCULAR HEMOGLOBIN 31.8 pg (26.0-34.0); MEAN CORPUSCULAR HGB CONC 33.7 G/dL (31.0-37.0); MEAN CORPUSCULAR VOLUME 95 fL (80-100); MONOCYTES # (AUTO) 0.5 K/uL (0.1-1.0); MONOCYTES % (AUTO) 5.5 % (2.0-9.0); NEUTROPHILS # (AUTO) 4.8 K/uL (1.8-7.7); PLATELET COUNT (AUTO) 236 K/uL (150-450); RED BLOOD CELL COUNT(AUTO) 4.38 MIL/uL (4.00-5.20); RED CELL DISTRIBUTION WIDTH 13.7 % (11.5-14.5); WHITE BLOOD COUNT (AUTO) 8.4 K/uL (4.5-11.0)
[2017-03-14 07:46] LABS: HEMOGLOBIN A1C 5.2 % (4.5-6.2)
[2017-03-14 07:59] LABS: ALANINE AMINOTRANSFERASE 16 U/L (12-78); ALBUMIN 3.5 g/dL (3.4-5.0); ANION GAP 11 mmol/L (8-16); ASPARTATE AMINOTRANSFERASE 10 U/L (15-37); BILIRUBIN,TOTAL 0.4 mg/dL (0.1-1.0); CALCIUM, TOTAL 8.2 mg/dL (8.8-10.5); CARBON DIOXIDE 22 mmol/L (22-29); CHLORIDE 108 mmol/L (98-107); CHOL/HDL RATIO 3.7 (3.9-5.7); GLOMERULAR FILTR. RATE CALC > 60 mL/min (>60); POTASSIUM 4.3 mmol/L (3.5-5.1); SODIUM SERUM 141 mmol/L (136-145); THYROID STIMULATING HORMONE 0.49 uIU/mL (0.36-3.74); TOTAL PROTEIN, SERUM 6.3 g/dL (6.4-8.2); UREA NITROGEN, BLOOD 14 mg/dL (7-18)
[2017-03-14 08:25] VITALS: BP 99/65
[2017-03-14] MEDS ORDERED: ARIPiprazole 10 MG TABLET PO SCH (09:00)
[2017-03-14] MEDS ORDERED: NICOTINE 21 MG/24 HOUR PATCH TD SCH (09:00)
[2017-03-14] MEDS: ARIPiprazole 15 MG TABLET PO SCH (09:16)
[2017-03-14] MEDS: NICOTINE 21 MG/24 HOUR PATCH TD SCH (09:16)
[2017-03-14] MEDS: HALOPERIDOL 5 MG TABLET PO PRN ×3 (09:30→20:47)
[2017-03-14] MEDS ORDERED: HALOPERIDOL LACTATE 5 MG/ML VIAL ONE (09:37)
[2017-03-14] MEDS ORDERED: DiphenhydrAMINE HCL 50 MG/ML VIAL ONE (09:37)
[2017-03-14] MEDS ORDERED: DiphenhydrAMINE HCL 50 MG/ML VIAL IM ONE ×2 (10:30→15:15)
[2017-03-14] MEDS ORDERED: HALOPERIDOL LACTATE 5 MG/ML VIAL IM ONE (10:30)
[2017-03-14 15:15] VITALS: BP 120/71
[2017-03-14 16:10] VITALS: BP 123/68
[2017-03-14] MEDS: ZOLPIDEM TARTRATE 10 MG TABLET PO PRN (20:47)
[2017-03-14] MEDS: SERTRALINE HCL 100 MG TABLET PO SCH (20:47)
[2017-03-15 06:15] VITALS: BP 114/62
[2017-03-15 08:18] VITALS: BP 118/61
[2017-03-15] MEDS: NICOTINE 21 MG/24 HOUR PATCH TD SCH (08:57)
[2017-03-15] MEDS: ARIPiprazole 15 MG TABLET PO SCH (09:00)
[2017-03-15] MEDS: ClonazePAM 1 MG TABLET PO PRN ×2 (09:30→21:34)
[2017-03-15] MEDS: HALOPERIDOL 5 MG TABLET PO PRN ×2 (11:43→18:17)
[2017-03-15 16:14] VITALS: BP 129/80
[2017-03-15] MEDS: SERTRALINE HCL 100 MG TABLET PO SCH (20:15)
[2017-03-15] MEDS: ZOLPIDEM TARTRATE 10 MG TABLET PO PRN (21:34)
[2017-03-16 02:31] VITALS: BP 131/77
[2017-03-16] MEDS: HALOPERIDOL 5 MG TABLET PO PRN ×3 (02:33→18:01)
[2017-03-16] MEDS: NICOTINE 21 MG/24 HOUR PATCH TD SCH (08:18)
[2017-03-16] MEDS: ARIPiprazole 15 MG TABLET PO SCH (08:18)
[2017-03-16 08:29] VITALS: BP 144/116
[2017-03-16] MEDS: ClonazePAM 1 MG TABLET PO PRN (10:55)
[2017-03-16 16:52] VITALS: BP 130/85
[2017-03-16] MEDS: ZOLPIDEM TARTRATE 10 MG TABLET PO PRN (20:27)
[2017-03-16] MEDS: SERTRALINE HCL 100 MG TABLET PO SCH (21:00)
[2017-03-17 06:30] VITALS: BP 113/83
[2017-03-17] MEDS: ClonazePAM 1 MG TABLET PO PRN (06:57)
[2017-03-17] MEDS: HALOPERIDOL 5 MG TABLET PO PRN (08:29)
[2017-03-17] MEDS: NICOTINE 21 MG/24 HOUR PATCH TD SCH (08:29)
[2017-03-17] MEDS: ARIPiprazole 15 MG TABLET PO SCH (08:29)
[2017-03-17 08:43] VITALS: BP 129/95
== END 2017-03-17 12:55 | disposition home or self-care (01) | DRG 750 ==
LOC: EDSTATUS 14:47 → B3A 15:31
DX: F25.1 Schizoaffective disorder, depressive type (principal); R45.851 Suicidal ideations; I10 Essential (primary) hypertension; E78.1 Pure hyperglyceridemia; F12.90 Cannabis use, unspecified, uncomplicated; F15.90 Other stimulant use, unspecified, uncomplicated; Z28.21 Immunization not carried out because of patient refusal; Z82.49 Family history of ischemic heart disease and other diseases of the circulatory system
CPT/HCPCS: 83036; 84439; 84443; 87081; J1200; J1630; J2060; J3230

== ENCOUNTER 2017-04-01 12:58 | Inpatient (IN) | payer MEDICAID ==
[~2017-04-01] VITALS: Ht 162.6 cm; Wt 77.2 kg
[2017-04-01] MEDS ORDERED: DiphenhydrAMINE HCL 50 MG/ML VIAL IM ONE (14:00)
[2017-04-01] MEDS ORDERED: LORazepam 2 MG/ML VIAL IM ONE ×2 (14:00→15:45)
[2017-04-01] MEDS ORDERED: HALOPERIDOL LACTATE 5 MG/ML VIAL IM ONE (14:00)
[2017-04-01 14:22] LABS: BASOPHILS % (AUTO) 0.5 % (0.0-2.0); EOSINOPHILS % (AUTO) 0.5 % (1.0-6.0); HEMATOCRIT 39.5 % (36-46); LYMPHOCYTES # (AUTO) 4.3 K/uL (1.0-4.8); LYMPHOCYTES % (AUTO) 32.7 % (22.0-44.0); MEAN CORPUSCULAR HEMOGLOBIN 32.4 pg (26.0-34.0); MEAN CORPUSCULAR HGB CONC 35.3 G/dL (31.0-37.0); MEAN CORPUSCULAR VOLUME 92 fL (80-100); MONOCYTES # (AUTO) 0.7 K/uL (0.1-1.0); MONOCYTES % (AUTO) 5.2 % (2.0-9.0); NEUTROPHILS # (AUTO) 8.1 K/uL (1.8-7.7); NEUTROPHILS % (AUTO) 61.1 % (40.0-70.0); PLATELET COUNT (AUTO) 309 K/uL (150-450); RED CELL DISTRIBUTION WIDTH 13.4 % (11.5-14.5); WHITE BLOOD COUNT (AUTO) 13.3 K/uL (4.5-11.0)
[2017-04-01 14:30] LABS: ANION GAP 11 mmol/L (8-16); CALCIUM, TOTAL 9.1 mg/dL (8.8-10.5); CARBON DIOXIDE 21 mmol/L (22-29); CHLORIDE 104 mmol/L (98-107); CREATININE 0.97 mg/dL (0.60-1.30); GLOMERULAR FILTR. RATE CALC > 60 mL/min (>60); POTASSIUM 4.1 mmol/L (3.5-5.1); SODIUM SERUM 136 mmol/L (136-145); UREA NITROGEN, BLOOD 14 mg/dL (7-18)
[2017-04-01 14:35] LABS: ALANINE AMINOTRANSFERASE 17 U/L (12-78); ALBUMIN 4.1 g/dL (3.4-5.0); ASPARTATE AMINOTRANSFERASE 10 U/L (15-37); BILIRUBIN,TOTAL 0.3 mg/dL (0.1-1.0); TOTAL PROTEIN, SERUM 7.3 g/dL (6.4-8.2)
[2017-04-01] MEDS ORDERED: LORazepam 2 MG TABLET PO PRN (15:45)
[2017-04-01 17:15] VITALS: BP 122/77
[2017-04-01 17:16] LABS: CHOL/HDL RATIO 3.3 (3.9-5.7); THYROID STIMULATING HORMONE 0.35 uIU/mL (0.36-3.74)
[2017-04-01] MEDS ORDERED: PNEUMOCOCCAL VACCINE POLYVALENT 0.5 ML VIAL [PPSV23] IM ONE (17:45)
[2017-04-01] MEDS ORDERED: INFLUENZA VIRUS VACCINE QVS 2017-18 (3YR+)/PF 60 MCG/0.5 ML SYRINGE IM ONE (17:45)
[2017-04-02 08:19] VITALS: BP 115/74
[2017-04-02] MEDS: NICOTINE 21 MG/24 HOUR PATCH TD SCH (09:12)
[2017-04-02] MEDS: HALOPERIDOL 5 MG TABLET PO PRN (10:28)
[2017-04-02] MEDS ORDERED: DiphenhydrAMINE HCL 50 MG/ML VIAL IM ONE (10:45)
[2017-04-02] MEDS ORDERED: HALOPERIDOL LACTATE 5 MG/ML VIAL IM ONE (10:45)
[2017-04-02] MEDS: ClonazePAM 1 MG TABLET PO PRN (12:53)
[2017-04-02] MEDS ORDERED: ARIPiprazole 10 MG TABLET PO SCH (13:00)
[2017-04-02 16:22] VITALS: BP 129/74
[2017-04-02] MEDS: SERTRALINE HCL 100 MG TABLET PO SCH (21:01)
[2017-04-03] MEDS: ZOLPIDEM TARTRATE 10 MG TABLET PO PRN (00:38)
[2017-04-03 00:39] VITALS: BP 114/61
[2017-04-03] MEDS: ClonazePAM 1 MG TABLET PO PRN ×2 (05:30→18:55)
[2017-04-03] MEDS: HALOPERIDOL 5 MG TABLET PO PRN ×2 (06:11→15:09)
[2017-04-03] MEDS ORDERED: HALOPERIDOL LACTATE 5 MG/ML VIAL IM ONE ×2 (06:30→12:15)
[2017-04-03] MEDS ORDERED: DiphenhydrAMINE HCL 50 MG/ML VIAL IM ONE ×2 (06:30→12:15)
[2017-04-03] MEDS: NICOTINE 21 MG/24 HOUR PATCH TD SCH (08:53)
[2017-04-03] MEDS: ARIPiprazole 15 MG TABLET PO SCH (08:53)
[2017-04-03 16:30] VITALS: BP 118/72
[2017-04-03] MEDS: HALOPERIDOL 10 MG TABLET PO SCH (20:28)
[2017-04-03] MEDS: SERTRALINE HCL 100 MG TABLET PO SCH (20:28)
[2017-04-04 00:09] VITALS: BP 91/65
[2017-04-04] MEDS: ZOLPIDEM TARTRATE 10 MG TABLET PO PRN ×2 (00:26→23:11)
[2017-04-04] MEDS: HALOPERIDOL 5 MG TABLET PO PRN ×4 (00:27→17:11)
[2017-04-04] MEDS: ClonazePAM 1 MG TABLET PO PRN (07:38)
[2017-04-04] MEDS ORDERED: HALOPERIDOL LACTATE 5 MG/ML VIAL ONE (07:47)
[2017-04-04] MEDS ORDERED: DiphenhydrAMINE HCL 50 MG/ML VIAL ONE (07:47)
[2017-04-04] MEDS ORDERED: DiphenhydrAMINE HCL 50 MG/ML VIAL IM ONE (08:00)
[2017-04-04] MEDS ORDERED: HALOPERIDOL LACTATE 5 MG/ML VIAL IM ONE (08:00)
[2017-04-04] MEDS: NICOTINE 21 MG/24 HOUR PATCH TD SCH (08:20)
[2017-04-04] MEDS: ARIPiprazole 15 MG TABLET PO SCH (08:21)
[2017-04-04 08:26] VITALS: BP 106/70
[2017-04-04] MEDS: HALOPERIDOL 10 MG TABLET PO SCH (20:35)
[2017-04-04] MEDS: SERTRALINE HCL 100 MG TABLET PO SCH (20:35)
[2017-04-04 21:24] VITALS: BP 103/74
[2017-04-05] MEDS: ClonazePAM 1 MG TABLET PO PRN (00:10)
[2017-04-05 00:45] VITALS: BP 102/70
[2017-04-05] MEDS: HALOPERIDOL 5 MG TABLET PO PRN ×2 (00:51→06:33)
[2017-04-05] MEDS: ARIPiprazole 15 MG TABLET PO SCH (08:02)
[2017-04-05] MEDS: NICOTINE 21 MG/24 HOUR PATCH TD SCH (08:03)
[2017-04-05 08:40] VITALS: BP 117/74
[2017-04-05] MEDS: SERTRALINE HCL 100 MG TABLET PO SCH (21:00)
[2017-04-05 21:17] VITALS: BP 121/82
[2017-04-05] MEDS: HALOPERIDOL 10 MG TABLET PO SCH (22:51)
[2017-04-06 00:15] VITALS: BP 124/75
[2017-04-06] MEDS: ClonazePAM 1 MG TABLET PO PRN (00:17)
[2017-04-06] MEDS: ZOLPIDEM TARTRATE 10 MG TABLET PO PRN (00:17)
[2017-04-06] MEDS: ARIPiprazole 15 MG TABLET PO SCH (08:04)
[2017-04-06] MEDS: NICOTINE 21 MG/24 HOUR PATCH TD SCH (08:05)
[2017-04-06] MEDS ORDERED: SERTRALINE HCL 100 MG TABLET PO SCH (09:00)
[2017-04-06 09:29] VITALS: BP 119/85
[2017-04-06] MEDS ORDERED: HALO10 PO (11:15)
== END 2017-04-06 13:30 | disposition home or self-care (01) | DRG 750 ==
LOC: EMS 12:58 → 3EC 16:19
DX: F25.0 Schizoaffective disorder, bipolar type (principal); R45.851 Suicidal ideations; Z78.1 Physical restraint status; Z91.14 Patient's other noncompliance with medication regimen; I10 Essential (primary) hypertension; J45.909 Unspecified asthma, uncomplicated; E78.1 Pure hyperglyceridemia; F41.0 Panic disorder [episodic paroxysmal anxiety]; F15.90 Other stimulant use, unspecified, uncomplicated; F12.90 Cannabis use, unspecified, uncomplicated; F17.210 Nicotine dependence, cigarettes, uncomplicated; D72.828 Other elevated white blood cell count; Z88.6 Allergy status to analgesic agent; Z88.1 Allergy status to other antibiotic agents; Z88.2 Allergy status to sulfonamides; Z88.8 Allergy status to other drugs, medicaments and biological substances; Z79.899 Other long term (current) drug therapy; Z87.440 Personal history of urinary (tract) infections; Z86.718 Personal history of other venous thrombosis and embolism; Z82.49 Family history of ischemic heart disease and other diseases of the circulatory system
CPT/HCPCS: 84439; 84443; 87081; 96372; 99285; G0480; J1200; J1630; J2060

== ENCOUNTER 2018-09-14 20:37 | Inpatient (IN) | payer MEDICAID ==
[~2018-09-14] VITALS: Ht 162.6 cm; Wt 86.2 kg
[~2018-09-14 20:37] MED LIST changes: +AMOX1TAB15 PO; -ARIP10TA8 PO; +CLON.3 PO; +DULO20CA30 PO; +OLAN5TAB40 PO; -SERT100T12 PO
[2018-09-14 21:37] VITALS: BP 132/83
[2018-09-14] MEDS ORDERED: ONDANSETRON HCL 4 MG TABLET PO PRN (21:45)
[2018-09-14] MEDS ORDERED: ALBUTEROL SULFATE HFA 90 MCG/PUFF 8 GM INHALER IH PRN (21:45)
[2018-09-14] MEDS ORDERED: LOPERAMIDE HCL 2 MG CAPSULE PO PRN (21:45)
[2018-09-14] MEDS ORDERED: CloNIDine HCL 0.1 MG TABLET PO PRN (21:45)
[2018-09-14] MEDS ORDERED: PETROLATUM,WHITE 28 GM JELLY TP PRN (21:45)
[2018-09-14] MEDS ORDERED: PNEUMOCOCCAL VACCINE POLYVALENT 0.5 ML VIAL [PPSV23] IM ONE (21:45)
[2018-09-14] MEDS ORDERED: MAG HYDROX/AL HYDROX/SIMETH ES 30 ML SUSPENSION UDCUP PO PRN (21:45)
[2018-09-14] MEDS ORDERED: MAGNESIUM HYDROXIDE SUSPENSION 30 ML UDCUP PO PRN (21:45)
[2018-09-14] MEDS ORDERED: DOCUSATE SODIUM 100 MG CAPSULE PO PRN (21:45)
[2018-09-14] MEDS ORDERED: ACETAMINOPHEN 325 MG TABLET PO PRN (21:45)
[2018-09-14] MEDS: NICOTINE 21 MG/24 HOUR PATCH TD SCH (22:04)
[2018-09-14] MEDS: GuaiFENesin/D-METHORPHAN [SUGAR-FREE] 200-20MG/10 ML SYRUP UDCUP PO PRN (22:04)
[2018-09-14] MEDS: LORazepam 2 MG TABLET PO PRN (22:04)
[2018-09-14] MEDS: ZOLPIDEM TARTRATE 10 MG TABLET PO PRN (22:05)
[2018-09-15 01:06] VITALS: BP 139/92
[2018-09-15] MEDS: LORazepam 2 MG TABLET PO PRN ×3 (06:43→17:36)
[2018-09-15] MEDS: GuaiFENesin/D-METHORPHAN [SUGAR-FREE] 200-20MG/10 ML SYRUP UDCUP PO PRN (07:07)
[2018-09-15] MEDS: NICOTINE 21 MG/24 HOUR PATCH TD SCH (08:21)
[2018-09-15 08:32] LABS: EOSINOPHILS % (AUTO) 1.9 % (1.0-6.0); HEMATOCRIT 45.8 % (36-46); HEMOGLOBIN 15.2 g/dL (12.0-16.0); LYMPHOCYTES # (AUTO) 2.4 K/uL (1.0-4.8); LYMPHOCYTES % (AUTO) 33.7 % (22.0-44.0); MEAN CORPUSCULAR HEMOGLOBIN 31.7 pg (26.0-34.0); MEAN CORPUSCULAR HGB CONC 33.2 G/dL (31.0-37.0); MEAN CORPUSCULAR VOLUME 95 fL (80-100); MONOCYTES # (AUTO) 0.9 K/uL (0.1-1.0); MONOCYTES % (AUTO) 12.1 % (2.0-9.0); NEUTROPHILS # (AUTO) 3.6 K/uL (1.8-7.7); NEUTROPHILS % (AUTO) 51.3 % (40.0-70.0); PLATELET COUNT (AUTO) 282 K/uL (150-450)
[2018-09-15 09:05] VITALS: BP 139/93
[2018-09-15 09:20] LABS: ALANINE AMINOTRANSFERASE 28 U/L (12-78); ALBUMIN 3.7 g/dL (3.4-5.0); ALKALINE PHOSPHATASE 58 U/L (46-116); ANION GAP 12 mmol/L (8-16); ASPARTATE AMINOTRANSFERASE 21 U/L (15-37); BILIRUBIN,TOTAL 0.3 mg/dL (0.1-1.0); CARBON DIOXIDE 22 mmol/L (22-29); CHLORIDE 106 mmol/L (98-107); CHOL/HDL RATIO 4.4 (3.9-5.7); CHOLESTEROL 158 mg/dL (131-200); CREATININE 0.85 mg/dL (0.60-1.30); FREE T4 (FREE THYROXINE) 0.87 ng/dL (0.76-1.46); GLOMERULAR FILTR. RATE CALC > 60 mL/min (>60); GLUCOSE,RANDOM 97 mg/dL (70-110); HCG,QUANTITATIVE < 1 mIU/mL (0-6); HDL CHOLESTEROL 36 mg/dL (40-60); LDL CHOL (CALC.) 104 mg/dL (0-130); POTASSIUM 4.1 mmol/L (3.5-5.1); SODIUM SERUM 140 mmol/L (136-145); TOTAL PROTEIN, SERUM 7.4 g/dL (6.4-8.2); TRIGLYCERIDES 91 mg/dL (15-150); UREA NITROGEN, BLOOD 13 mg/dL (7-18)
[2018-09-15 09:21] LABS: HEMOGLOBIN A1C 5.4 % (4.5-6.2)
[2018-09-15] MEDS: HALOPERIDOL 5 MG TABLET PO PRN ×2 (12:36→17:36)
[2018-09-15] MEDS ORDERED: LORazepam 2 MG/ML VIAL ONE (12:52)
[2018-09-15] MEDS ORDERED: DiphenhydrAMINE HCL 50 MG/ML VIAL ONE (12:53)
[2018-09-15] MEDS ORDERED: HALOPERIDOL LACTATE 5 MG/ML VIAL ONE (12:53)
[2018-09-15] MEDS ORDERED: HALOPERIDOL LACTATE 5 MG/ML VIAL IM ONE (13:00)
[2018-09-15] MEDS ORDERED: LORazepam 2 MG/ML VIAL IM ONE (13:00)
[2018-09-15] MEDS ORDERED: DiphenhydrAMINE HCL 50 MG/ML VIAL IM ONE (13:00)
[2018-09-15] MEDS: OLANZapine 10 MG TABLET PO SCH (16:40)
[2018-09-15 17:19] VITALS: BP 126/75
[2018-09-15] MEDS: CloNIDine HCL 0.1 MG TABLET PO SCH (18:06)
[2018-09-16 00:51] VITALS: BP 123/85
[2018-09-16 08:11] VITALS: BP 135/97
[2018-09-16] MEDS: NICOTINE 21 MG/24 HOUR PATCH TD SCH (08:21)
[2018-09-16] MEDS: CloNIDine HCL 0.1 MG TABLET PO SCH ×2 (08:22→17:57)
[2018-09-16] MEDS: OLANZapine 10 MG TABLET PO SCH ×2 (08:22→16:40)
[2018-09-16] MEDS: LORazepam 2 MG TABLET PO PRN ×3 (08:28→16:55)
[2018-09-16 08:55] LABS: AMPHET/METH SCREEN,URINE NEGATIVE (NEGATIVE); BARBITURATE SCREEN, URINE NEGATIVE (NEGATIVE); BENZODIAZEPINES SCREEN,URINE NEGATIVE (NEGATIVE); CANNABINOID SCREEN,URINE POSITIVE (NEGATIVE); COCAINE SCREEN,URINE NEGATIVE (NEGATIVE); METHADONE SCREEN, URINE NEGATIVE (NEGATIVE); OPIATE SCREEN,URINE NEGATIVE (NEGATIVE)
[2018-09-16 08:57] LABS: PHENCYCLIDINE SCREEN,URINE NEGATIVE (NEGATIVE)
[2018-09-16] MEDS: HALOPERIDOL 5 MG TABLET PO PRN ×2 (09:27→16:55)
[2018-09-16 09:32] LABS: APPEARANCE,URINE CLEAR (CLEAR); BILIRUBIN,URINE NEGATIVE (NEGATIVE); GLUCOSE, URINE (UA) NEGATIVE (NEGATIVE); KETONES,URINE NEGATIVE (NEGATIVE); LEUKOCYTE ESTERASE ,URINE NEGATIVE (NEGATIVE); NITRATE,URINE NEGATIVE (NEGATIVE); OCCULT BLOOD,URINE NEGATIVE (NEGATIVE); PROTEIN,URINE NEGATIVE (NEGATIVE); UROBILINOGEN,URINE 0.2 mg/dL (<=1.0)
[2018-09-16] MEDS: ARIPiprazole 15 MG TABLET PO SCH (12:09)
[2018-09-16 18:00] VITALS: BP 134/87
[2018-09-16] MEDS: ZOLPIDEM TARTRATE 10 MG TABLET PO PRN (20:37)
[2018-09-17] MEDS: LORazepam 2 MG TABLET PO PRN ×4 (01:08→20:29)
[2018-09-17 03:09] VITALS: BP 121/81
[2018-09-17] MEDS: OLANZapine 10 MG TABLET PO SCH ×2 (09:16→16:48)
[2018-09-17] MEDS: ARIPiprazole 15 MG TABLET PO SCH (09:16)
[2018-09-17] MEDS: CloNIDine HCL 0.1 MG TABLET PO SCH ×2 (09:16→16:48)
[2018-09-17] MEDS: NICOTINE 21 MG/24 HOUR PATCH TD SCH (09:17)
[2018-09-17 14:18] VITALS: BP 116/89
[2018-09-17 16:10] VITALS: BP 108/63
[2018-09-17] MEDS: ZOLPIDEM TARTRATE 10 MG TABLET PO PRN (20:29)
[2018-09-18] MEDS: LORazepam 2 MG TABLET PO PRN (07:19)
[2018-09-18 08:00] VITALS: BP 116/78
[2018-09-18] MEDS: NICOTINE 21 MG/24 HOUR PATCH TD SCH (08:25)
[2018-09-18] MEDS: ARIPiprazole 15 MG TABLET PO SCH (08:25)
[2018-09-18] MEDS: OLANZapine 10 MG TABLET PO SCH (08:26)
[2018-09-18] MEDS: CloNIDine HCL 0.1 MG TABLET PO SCH (08:26)
[2018-09-18] MEDS ORDERED: ARIP10TA8 PO (11:56)
[2018-09-18] MEDS ORDERED: OLAN10TA3 PO (11:57)
== END 2018-09-18 12:59 | disposition home or self-care (01) | DRG 753 ==
LOC: B3A 21:13 → EDSTATUS 21:30
PROVIDERS: ADMIT Psychiatry & Neurology Psychiatry; ATTEND Psychiatry & Neurology Psychiatry
DX: F31.2 Bipolar disorder, current episode manic severe with psychotic features (principal); E78.5 Hyperlipidemia, unspecified; I10 Essential (primary) hypertension; F17.200 Nicotine dependence, unspecified, uncomplicated; J45.909 Unspecified asthma, uncomplicated; F12.90 Cannabis use, unspecified, uncomplicated; Z28.21 Immunization not carried out because of patient refusal
CPT/HCPCS: 80307; 83036; 84439; 84443; 87081; J1200; J1630; J2060

== ENCOUNTER 2018-10-16 22:12 | Inpatient (IN) | payer MEDICAID ==
[~2018-10-16] VITALS: Ht 162.6 cm; Wt 78.5 kg
[~2018-10-16 22:12] MED LIST changes: -AMOX1TAB15 PO; +ARIP10TA8 PO; -DULO20CA30 PO; +OLAN10TA3 PO; -OLAN5TAB40 PO
[2018-10-17] MEDS ORDERED: HALOPERIDOL 5 MG TABLET PO PRN (01:00)
[2018-10-17 02:23] VITALS: BP 138/68
[2018-10-17] MEDS: ZOLPIDEM TARTRATE 10 MG TABLET PO PRN ×2 (02:40→21:49)
[2018-10-17] MEDS: LORazepam 2 MG TABLET PO PRN ×2 (02:40→21:34)
[2018-10-17] MEDS ORDERED: DiphenhydrAMINE HCL 50 MG/ML VIAL ONE (03:53)
[2018-10-17] MEDS ORDERED: HALOPERIDOL LACTATE 5 MG/ML VIAL ONE (03:54)
[2018-10-17] MEDS ORDERED: HALOPERIDOL LACTATE 5 MG/ML VIAL IM ONE (04:00)
[2018-10-17] MEDS ORDERED: DiphenhydrAMINE HCL 50 MG/ML VIAL IM ONE (04:00)
[2018-10-17] MEDS ORDERED: CloNIDine HCL 0.1 MG TABLET PO PRN (07:30)
[2018-10-17] MEDS ORDERED: LOPERAMIDE HCL 2 MG CAPSULE PO PRN (07:30)
[2018-10-17] MEDS ORDERED: GuaiFENesin/D-METHORPHAN [SUGAR-FREE] 200-20MG/10 ML SYRUP UDCUP PO PRN (07:30)
[2018-10-17] MEDS ORDERED: ONDANSETRON HCL 4 MG TABLET PO PRN (07:30)
[2018-10-17] MEDS ORDERED: DOCUSATE SODIUM 100 MG CAPSULE PO PRN (07:30)
[2018-10-17] MEDS ORDERED: MAG HYDROX/AL HYDROX/SIMETH ES 30 ML SUSPENSION UDCUP PO PRN (07:30)
[2018-10-17] MEDS ORDERED: MAGNESIUM HYDROXIDE SUSPENSION 30 ML UDCUP PO PRN (07:30)
[2018-10-17] MEDS ORDERED: PETROLATUM,WHITE 28 GM JELLY TP PRN (07:30)
[2018-10-17] MEDS ORDERED: ALBUTEROL SULFATE HFA 90 MCG/PUFF 8 GM INHALER IH PRN (07:30)
[2018-10-17] MEDS: ARIPiprazole 10 MG TABLET PO SCH (13:00)
[2018-10-17] MEDS: FLUoxetine HCL 20 MG CAPSULE PO SCH (13:00)
[2018-10-17 16:14] VITALS: BP 102/61
[2018-10-18 02:26] VITALS: BP 106/64
[2018-10-18 07:37] LABS: BASOPHILS % (AUTO) 1.2 % (0.0-2.0); EOSINOPHILS % (AUTO) 2.6 % (1.0-6.0); HEMATOCRIT 40.8 % (36-46); HEMOGLOBIN 13.6 g/dL (12.0-16.0); LYMPHOCYTES # (AUTO) 3.3 K/uL (1.0-4.8); LYMPHOCYTES % (AUTO) 42.4 % (22.0-44.0); MEAN CORPUSCULAR HEMOGLOBIN 31.7 pg (26.0-34.0); MEAN CORPUSCULAR HGB CONC 33.3 G/dL (31.0-37.0); MEAN CORPUSCULAR VOLUME 95 fL (80-100); MONOCYTES # (AUTO) 0.5 K/uL (0.1-1.0); MONOCYTES % (AUTO) 6.8 % (2.0-9.0); NEUTROPHILS # (AUTO) 3.6 K/uL (1.8-7.7); PLATELET COUNT (AUTO) 249 K/uL (150-450); RED BLOOD CELL COUNT(AUTO) 4.29 MIL/uL (4.00-5.20); RED CELL DISTRIBUTION WIDTH 13.1 % (11.5-14.5)
[2018-10-18 08:09] LABS: ALANINE AMINOTRANSFERASE 17 U/L (12-78); ALBUMIN 3.1 g/dL (3.4-5.0); ALKALINE PHOSPHATASE 46 U/L (46-116); ANION GAP 12 mmol/L (8-16); ASPARTATE AMINOTRANSFERASE 16 U/L (15-37); BILIRUBIN,TOTAL 0.4 mg/dL (0.1-1.0); CALCIUM, TOTAL 8.7 mg/dL (8.8-10.5); CARBON DIOXIDE 26 mmol/L (22-29); CHLORIDE 105 mmol/L (98-107); CHOL/HDL RATIO 4.1 (3.9-5.7); CHOLESTEROL 122 mg/dL (131-200); CREATININE 0.77 mg/dL (0.60-1.30); FREE T4 (FREE THYROXINE) 1.34 ng/dL (0.76-1.46); GLOMERULAR FILTR. RATE CALC > 60 mL/min (>60); GLUCOSE,RANDOM 77 mg/dL (70-110); HCG,QUANTITATIVE < 1 mIU/mL (0-6); HDL CHOLESTEROL 30 mg/dL (40-60); LDL CHOL (CALC.) 76 mg/dL (0-130); POTASSIUM 3.6 mmol/L (3.5-5.1); SODIUM SERUM 143 mmol/L (136-145); THYROID STIMULATING HORMONE 0.34 uIU/mL (0.36-3.74); TOTAL PROTEIN, SERUM 6.3 g/dL (6.4-8.2); TRIGLYCERIDES 78 mg/dL (15-150); UREA NITROGEN, BLOOD 19 mg/dL (7-18)
[2018-10-18 08:22] VITALS: BP 100/56
[2018-10-18] MEDS: ARIPiprazole 10 MG TABLET PO SCH (09:00)
[2018-10-18] MEDS: FLUoxetine HCL 20 MG CAPSULE PO SCH (09:00)
[2018-10-18] MEDS: LORazepam 2 MG TABLET PO PRN ×3 (11:54→23:41)
[2018-10-18] MEDS ORDERED: HALOPERIDOL LACTATE 5 MG/ML VIAL ONE (12:12)
[2018-10-18] MEDS ORDERED: DiphenhydrAMINE HCL 50 MG/ML VIAL ONE (12:12)
[2018-10-18] MEDS ORDERED: DiphenhydrAMINE HCL 50 MG/ML VIAL IM ONE (12:30)
[2018-10-18] MEDS ORDERED: HALOPERIDOL LACTATE 5 MG/ML VIAL IM ONE (12:30)
[2018-10-18 16:17] VITALS: BP 119/84
[2018-10-18] MEDS: ZOLPIDEM TARTRATE 10 MG TABLET PO PRN (23:41)
[2018-10-19 00:30] VITALS: BP 131/80
[2018-10-19] MEDS: LORazepam 2 MG TABLET PO PRN ×4 (07:02→22:36)
[2018-10-19] MEDS: SERTRALINE HCL 50 MG TABLET PO SCH (08:32)
[2018-10-19] MEDS: ARIPiprazole 10 MG TABLET PO SCH (08:32)
[2018-10-19 08:54] VITALS: BP 101/58
[2018-10-19 16:00] VITALS: BP 114/73
[2018-10-19] MEDS: NICOTINE 14 MG/24 HOUR PATCH TD PRN (17:19)
[2018-10-19] MEDS: ZOLPIDEM TARTRATE 10 MG TABLET PO PRN (22:36)
[2018-10-20 04:10] VITALS: BP 140/85
[2018-10-20] MEDS ORDERED: HALOPERIDOL LACTATE 5 MG/ML VIAL ONE (04:39)
[2018-10-20] MEDS ORDERED: DiphenhydrAMINE HCL 50 MG/ML VIAL ONE (04:39)
[2018-10-20] MEDS ORDERED: LORazepam 2 MG/ML VIAL ONE (04:39)
[2018-10-20] MEDS ORDERED: DiphenhydrAMINE HCL 50 MG/ML VIAL IM ONE (04:45)
[2018-10-20] MEDS ORDERED: LORazepam 2 MG/ML VIAL IM ONE (04:45)
[2018-10-20] MEDS ORDERED: HALOPERIDOL LACTATE 5 MG/ML VIAL IM ONE (04:45)
[2018-10-20] MEDS: ARIPiprazole 15 MG TABLET PO SCH ×2 (09:00→14:17)
[2018-10-20] MEDS: SERTRALINE HCL 50 MG TABLET PO SCH ×2 (09:00→14:17)
[2018-10-20] MEDS: LORazepam 2 MG TABLET PO PRN ×3 (12:18→20:28)
[2018-10-20 16:07] VITALS: BP 117/76
[2018-10-20] MEDS: NICOTINE 14 MG/24 HOUR PATCH TD PRN (16:18)
[2018-10-20] MEDS: ZOLPIDEM TARTRATE 10 MG TABLET PO PRN (21:12)
[2018-10-21 05:19] VITALS: BP 115/72
[2018-10-21] MEDS: SERTRALINE HCL 50 MG TABLET PO SCH (08:06)
[2018-10-21] MEDS: ARIPiprazole 15 MG TABLET PO SCH (08:06)
[2018-10-21] MEDS: LORazepam 2 MG TABLET PO PRN ×3 (08:06→18:09)
[2018-10-21 08:16] VITALS: BP 125/75
[2018-10-21] MEDS ORDERED: ARIPiprazole LAUROXIL ER SUSPENSION 662 MG/2.4 ML SYRINGE IM SCH (11:00)
[2018-10-21 16:24] VITALS: BP 135/100
[2018-10-21] MEDS: AmLODIPine BESYLATE 2.5 MG TABLET PO SCH (17:21)
[2018-10-21] MEDS: ZOLPIDEM TARTRATE 10 MG TABLET PO PRN (20:39)
[2018-10-22 06:42] VITALS: BP 130/89
[2018-10-22] MEDS ORDERED: ARIP662S IM (07:47)
[2018-10-22] MEDS ORDERED: SERT50TA12 PO (07:47)
[2018-10-22] MEDS ORDERED: AMLO2.5T4 PO (07:47)
[2018-10-22] MEDS: NICOTINE 14 MG/24 HOUR PATCH TD PRN (08:13)
[2018-10-22] MEDS: AmLODIPine BESYLATE 2.5 MG TABLET PO SCH (08:14)
[2018-10-22] MEDS: SERTRALINE HCL 50 MG TABLET PO SCH (08:14)
[2018-10-22] MEDS: LORazepam 2 MG TABLET PO PRN (08:14)
[2018-10-22 09:20] VITALS: BP 133/95
== END 2018-10-22 13:30 | disposition home or self-care (01) | DRG 753 ==
LOC: B3A 10-17 01:00
PROVIDERS: ADMIT Psychiatry & Neurology Psychiatry; ATTEND Psychiatry & Neurology Psychiatry
DX: F31.5 Bipolar disorder, current episode depressed, severe, with psychotic features (principal); R45.851 Suicidal ideations; Z78.1 Physical restraint status; E78.5 Hyperlipidemia, unspecified; F12.90 Cannabis use, unspecified, uncomplicated; F41.9 Anxiety disorder, unspecified; I10 Essential (primary) hypertension; J45.909 Unspecified asthma, uncomplicated; Z59.0 Homelessness; Z79.899 Other long term (current) drug therapy; Z91.19 Patient's noncompliance with other medical treatment and regimen
CPT/HCPCS: 83036; 84439; 84443; J1200; J1630; J2060

== ENCOUNTER 2018-10-25 20:31 | Inpatient (IN) | payer MEDICAID ==
[~2018-10-25] VITALS: Ht 162.6 cm; Wt 84.4 kg
[~2018-10-25 20:31] MED LIST changes: +AMLO2.5T4 PO; -ARIP10TA8 PO; +ARIP662S IM; -CLON.3 PO; -OLAN10TA3 PO; +SERT50TA12 PO
[2018-10-25] MEDS ORDERED: CLON.3 PO (20:53)
[2018-10-25 21:12] LABS: BASOPHILS % (AUTO) 0.7 % (0.0-2.0); EOSINOPHILS % (AUTO) 1.8 % (1.0-6.0); HEMATOCRIT 40.8 % (36-46); HEMOGLOBIN 13.6 g/dL (12.0-16.0); LYMPHOCYTES % (AUTO) 42.6 % (22.0-44.0); MEAN CORPUSCULAR HEMOGLOBIN 31.4 pg (26.0-34.0); MEAN CORPUSCULAR HGB CONC 33.3 G/dL (31.0-37.0); MEAN CORPUSCULAR VOLUME 94 fL (80-100); MONOCYTES # (AUTO) 0.6 K/uL (0.1-1.0); MONOCYTES % (AUTO) 6.1 % (2.0-9.0); NEUTROPHILS # (AUTO) 4.6 K/uL (1.8-7.7); NEUTROPHILS % (AUTO) 48.8 % (40.0-70.0); PLATELET COUNT (AUTO) 272 K/uL (150-450); RED BLOOD CELL COUNT(AUTO) 4.33 MIL/uL (4.00-5.20); RED CELL DISTRIBUTION WIDTH 13.5 % (11.5-14.5)
[2018-10-25 21:21] LABS: ANION GAP 8 mmol/L (8-16); CALCIUM, TOTAL 9.2 mg/dL (8.8-10.5); CARBON DIOXIDE 29 mmol/L (22-29); CHLORIDE 105 mmol/L (98-107); CREATININE 1.04 mg/dL (0.60-1.30); GLOMERULAR FILTR. RATE CALC 58 mL/min (>60); GLUCOSE,RANDOM 79 mg/dL (70-110); POTASSIUM 3.8 mmol/L (3.5-5.1); SODIUM SERUM 142 mmol/L (136-145); UREA NITROGEN, BLOOD 18 mg/dL (7-18)
[2018-10-25 21:26] LABS: ALANINE AMINOTRANSFERASE 23 U/L (12-78); ALBUMIN 3.7 g/dL (3.4-5.0); ALKALINE PHOSPHATASE 53 U/L (46-116); ASPARTATE AMINOTRANSFERASE 11 U/L (15-37); BILIRUBIN,TOTAL 0.1 mg/dL (0.1-1.0); TOTAL PROTEIN, SERUM 7.2 g/dL (6.4-8.2)
[2018-10-25 21:49] LABS: AMPHET/METH SCREEN,URINE NEGATIVE (NEGATIVE); BARBITURATE SCREEN, URINE NEGATIVE (NEGATIVE); BENZODIAZEPINES SCREEN,URINE NEGATIVE (NEGATIVE); CANNABINOID SCREEN,URINE POSITIVE (NEGATIVE); COCAINE SCREEN,URINE NEGATIVE (NEGATIVE); METHADONE SCREEN, URINE NEGATIVE (NEGATIVE); OPIATE SCREEN,URINE NEGATIVE (NEGATIVE); PHENCYCLIDINE SCREEN,URINE NEGATIVE (NEGATIVE)
[2018-10-26 02:25] VITALS: BP 106/73
[2018-10-26 02:26] VITALS: BP 106/73
[2018-10-26] MEDS ORDERED: PNEUMOCOCCAL VACCINE POLYVALENT 0.5 ML VIAL [PPSV23] IM ONE (02:45)
[2018-10-26] MEDS: ZOLPIDEM TARTRATE 10 MG TABLET PO PRN ×2 (03:05→20:35)
[2018-10-26] MEDS: LORazepam 2 MG TABLET PO PRN ×4 (03:05→20:35)
[2018-10-26] MEDS ORDERED: ONDANSETRON HCL 4 MG TABLET PO PRN (06:30)
[2018-10-26] MEDS ORDERED: GuaiFENesin/D-METHORPHAN [SUGAR-FREE] 200-20MG/10 ML SYRUP UDCUP PO PRN (06:30)
[2018-10-26] MEDS ORDERED: DOCUSATE SODIUM 100 MG CAPSULE PO PRN (06:30)
[2018-10-26] MEDS ORDERED: PETROLATUM,WHITE 28 GM JELLY TP PRN (06:30)
[2018-10-26] MEDS ORDERED: CloNIDine HCL 0.1 MG TABLET PO PRN (06:30)
[2018-10-26] MEDS ORDERED: IBUPROFEN 400 MG TABLET PO PRN (06:30)
[2018-10-26] MEDS ORDERED: LOPERAMIDE HCL 2 MG CAPSULE PO PRN (06:30)
[2018-10-26] MEDS ORDERED: ALBUTEROL SULFATE HFA 90 MCG/PUFF 8 GM INHALER IH PRN (06:30)
[2018-10-26] MEDS ORDERED: MAG HYDROX/AL HYDROX/SIMETH ES 30 ML SUSPENSION UDCUP PO PRN (06:30)
[2018-10-26] MEDS ORDERED: MAGNESIUM HYDROXIDE SUSPENSION 30 ML UDCUP PO PRN (06:30)
[2018-10-26] MEDS ORDERED: ACETAMINOPHEN 325 MG TABLET PO PRN (06:30)
[2018-10-26 08:00] VITALS: BP 120/76
[2018-10-26] MEDS ORDERED: HALOPERIDOL LACTATE 5 MG/ML VIAL IM ONE (12:15)
[2018-10-26] MEDS: NICOTINE 14 MG/24 HOUR PATCH TD PRN (13:08)
[2018-10-26 16:00] VITALS: BP 112/76
[2018-10-26] MEDS: HALOPERIDOL 5 MG TABLET PO PRN ×2 (16:29→20:35)
[2018-10-27 02:44] VITALS: BP 118/74
[2018-10-27] MEDS: LORazepam 2 MG TABLET PO PRN ×4 (06:38→20:38)
[2018-10-27] MEDS: HALOPERIDOL 5 MG TABLET PO PRN ×3 (06:38→20:38)
[2018-10-27 08:11] VITALS: BP 129/71
[2018-10-27] MEDS ORDERED: SERTRALINE HCL 50 MG TABLET PO SCH (09:00)
[2018-10-27] MEDS: AmLODIPine BESYLATE 2.5 MG TABLET PO SCH (09:20)
[2018-10-27 16:18] VITALS: BP 100/62
[2018-10-27] MEDS: NICOTINE 14 MG/24 HOUR PATCH TD PRN (16:55)
[2018-10-27] MEDS: ZOLPIDEM TARTRATE 10 MG TABLET PO PRN (20:38)
[2018-10-28] VITALS (9 sets, daily range): BP systolic 105–146; BP diastolic 65–91
[2018-10-28] MEDS: HALOPERIDOL 5 MG TABLET PO PRN ×3 (05:39→20:45)
[2018-10-28] MEDS ORDERED: DiphenhydrAMINE HCL 50 MG/ML VIAL IM ONE (07:45)
[2018-10-28] MEDS ORDERED: HALOPERIDOL LACTATE 5 MG/ML VIAL IM ONE (07:45)
[2018-10-28] MEDS ORDERED: LORazepam 2 MG/ML VIAL IM ONE (07:45)
[2018-10-28] MEDS: SERTRALINE HCL 100 MG TABLET PO SCH (09:23)
[2018-10-28] MEDS: AmLODIPine BESYLATE 2.5 MG TABLET PO SCH (09:23)
[2018-10-28] MEDS: LORazepam 2 MG TABLET PO PRN ×2 (16:42→20:45)
[2018-10-28] MEDS: NICOTINE 14 MG/24 HOUR PATCH TD PRN (17:01)
[2018-10-28] MEDS: ZOLPIDEM TARTRATE 10 MG TABLET PO PRN (20:45)
[2018-10-29 00:09] VITALS: BP 104/70
[2018-10-29] MEDS: LORazepam 2 MG TABLET PO PRN ×3 (02:16→16:30)
[2018-10-29] MEDS: HALOPERIDOL 5 MG TABLET PO PRN ×3 (02:16→16:30)
[2018-10-29] MEDS: AmLODIPine BESYLATE 2.5 MG TABLET PO SCH (09:30)
[2018-10-29] MEDS: SERTRALINE HCL 100 MG TABLET PO SCH (09:30)
[2018-10-29] MEDS ORDERED: HALOPERIDOL LACTATE 5 MG/ML VIAL IM ONE (10:00)
[2018-10-29] MEDS ORDERED: DiphenhydrAMINE HCL 50 MG/ML VIAL IM ONE (10:00)
[2018-10-29 16:15] VITALS: BP 112/78
[2018-10-29] MEDS: NICOTINE 14 MG/24 HOUR PATCH TD PRN (17:45)
[2018-10-29] MEDS: ZOLPIDEM TARTRATE 10 MG TABLET PO PRN (21:21)
[2018-10-30 00:31] VITALS: BP 109/71
[2018-10-30] MEDS: LORazepam 2 MG TABLET PO PRN ×3 (00:34→18:21)
[2018-10-30] MEDS: AmLODIPine BESYLATE 2.5 MG TABLET PO SCH (08:58)
[2018-10-30] MEDS: SERTRALINE HCL 100 MG TABLET PO SCH (08:59)
[2018-10-30] MEDS: ZOLPIDEM TARTRATE 10 MG TABLET PO PRN (20:49)
[2018-10-31 04:05] VITALS: BP 104/77
[2018-10-31] MEDS: LORazepam 2 MG TABLET PO PRN ×2 (04:09→08:39)
[2018-10-31 08:27] VITALS: BP 112/67
[2018-10-31] MEDS: AmLODIPine BESYLATE 2.5 MG TABLET PO SCH (08:39)
[2018-10-31] MEDS: SERTRALINE HCL 100 MG TABLET PO SCH (08:39)
[2018-10-31] MEDS ORDERED: SERT100T12 PO (09:31)
== END 2018-10-31 11:44 | disposition home or self-care (01) | DRG 753 ==
LOC: EMS 20:32 → B3A 10-26 00:15
PROVIDERS: ADMIT Psychiatry & Neurology Psychiatry; ATTEND Psychiatry & Neurology Psychiatry
DX: F31.64 Bipolar disorder, current episode mixed, severe, with psychotic features (principal); R45.851 Suicidal ideations; Z91.19 Patient's noncompliance with other medical treatment and regimen; E78.5 Hyperlipidemia, unspecified; F12.90 Cannabis use, unspecified, uncomplicated; F17.200 Nicotine dependence, unspecified, uncomplicated; F41.9 Anxiety disorder, unspecified; I10 Essential (primary) hypertension; J45.909 Unspecified asthma, uncomplicated; Z59.0 Homelessness; Z86.718 Personal history of other venous thrombosis and embolism; F19.10 Other psychoactive substance abuse, uncomplicated
CPT/HCPCS: 87081; 96372; G0480; J1200; J1630; J2060

== ENCOUNTER 2018-10-28 11:40 | Emergency (ER) | payer MEDICAID ==
[~2018-10-28] VITALS: Ht 162.6 cm; Wt 89.1 kg
[~2018-10-28 11:40] MED LIST changes: +CLON.3 PO
[2018-10-28 15:15] VITALS: BP 96/56
== END 2018-10-28 15:17 | disposition other institution (70) ==
LOC: EMS 11:40
DX: S00.83XA Contusion of other part of head, initial encounter (principal); J45.909 Unspecified asthma, uncomplicated; I10 Essential (primary) hypertension; F31.9 Bipolar disorder, unspecified; F17.210 Nicotine dependence, cigarettes, uncomplicated; Z79.899 Other long term (current) drug therapy; Z88.2 Allergy status to sulfonamides; Z88.3 Allergy status to other anti-infective agents; Z86.718 Personal history of other venous thrombosis and embolism; Z88.8 Allergy status to other drugs, medicaments and biological substances; X79.XXXA Intentional self-harm by blunt object, initial encounter; Y93.89 Activity, other specified; Y92.89 Other specified places as the place of occurrence of the external cause; Y99.8 Other external cause status

== ENCOUNTER 2018-12-10 10:38 | Inpatient (IN) | payer MEDICAID ==
[~2018-12-10] VITALS: Ht 162.6 cm; Wt 83.0 kg
[~2018-12-10 10:38] MED LIST changes: -ARIP662S IM; +SERT100T12 PO; -SERT50TA12 PO
[2018-12-10 11:21] LABS: BASOPHILS % (AUTO) 0.5 % (0.0-2.0); EOSINOPHILS % (AUTO) 0.3 % (1.0-6.0); HEMATOCRIT 44.9 % (36-46); HEMOGLOBIN 14.9 g/dL (12.0-16.0); LYMPHOCYTES # (AUTO) 1.7 K/uL (1.0-4.8); LYMPHOCYTES % (AUTO) 10.6 % (22.0-44.0); MEAN CORPUSCULAR HEMOGLOBIN 31.2 pg (26.0-34.0); MEAN CORPUSCULAR HGB CONC 33.1 G/dL (31.0-37.0); MEAN CORPUSCULAR VOLUME 94 fL (80-100); MONOCYTES # (AUTO) 1.1 K/uL (0.1-1.0); MONOCYTES % (AUTO) 6.8 % (2.0-9.0); NEUTROPHILS # (AUTO) 12.8 K/uL (1.8-7.7); NEUTROPHILS % (AUTO) 81.8 % (40.0-70.0); PLATELET COUNT (AUTO) 375 K/uL (150-450); RED BLOOD CELL COUNT(AUTO) 4.76 MIL/uL (4.00-5.20)
[2018-12-10 11:28] LABS: ANION GAP 14 mmol/L (8-16); CARBON DIOXIDE 23 mmol/L (22-29); CHLORIDE 102 mmol/L (98-107); CREATININE 1.45 mg/dL (0.60-1.30); GLOMERULAR FILTR. RATE CALC 39 mL/min (>60); GLUCOSE,RANDOM 81 mg/dL (70-110); POTASSIUM 3.3 mmol/L (3.5-5.1); SODIUM SERUM 139 mmol/L (136-145); UREA NITROGEN, BLOOD 17 mg/dL (7-18)
[2018-12-10 11:32] LABS: ALANINE AMINOTRANSFERASE 45 U/L (12-78); ALBUMIN 4.4 g/dL (3.4-5.0); ALKALINE PHOSPHATASE 63 U/L (46-116); ASPARTATE AMINOTRANSFERASE 32 U/L (15-37); BILIRUBIN,TOTAL 0.6 mg/dL (0.1-1.0); TOTAL PROTEIN, SERUM 8.5 g/dL (6.4-8.2)
[2018-12-10 15:21] LABS: AMPHET/METH SCREEN,URINE POSITIVE (NEGATIVE); BARBITURATE SCREEN, URINE NEGATIVE (NEGATIVE); BENZODIAZEPINES SCREEN,URINE NEGATIVE (NEGATIVE); CANNABINOID SCREEN,URINE POSITIVE (NEGATIVE); COCAINE SCREEN,URINE NEGATIVE (NEGATIVE); METHADONE SCREEN, URINE NEGATIVE (NEGATIVE); OPIATE SCREEN,URINE NEGATIVE (NEGATIVE); PHENCYCLIDINE SCREEN,URINE NEGATIVE (NEGATIVE)
[2018-12-10] MEDS ORDERED: POTASSIUM CHLORIDE 20 MEQ ER TABLET PO ONE (15:45)
[2018-12-10] MEDS ORDERED: LORazepam 2 MG TABLET PO ONE (15:45)
[2018-12-10] MEDS ORDERED: DiphenhydrAMINE HCL 25 MG CAPSULE PO ONE (15:45)
[2018-12-10] MEDS ORDERED: OLANZapine 5 MG TABLET PO ONE (15:45)
[2018-12-10] MEDS ORDERED: ACETAMINOPHEN 325 MG TABLET PO PRN (16:45)
[2018-12-10] MEDS ORDERED: IBUPROFEN 400 MG TABLET PO PRN (16:45)
[2018-12-10] MEDS ORDERED: ZOLPIDEM TARTRATE 10 MG TABLET PO PRN (16:45)
[2018-12-10] MEDS ORDERED: HALOPERIDOL 5 MG TABLET PO PRN (16:45)
[2018-12-10 16:59] LABS: APPEARANCE,URINE CLOUDY (CLEAR); BILIRUBIN,URINE NEGATIVE (NEGATIVE); GLUCOSE, URINE (UA) NEGATIVE (NEGATIVE); KETONES,URINE 40 mg/dL (NEGATIVE); LEUKOCYTE ESTERASE ,URINE NEGATIVE (NEGATIVE); NITRATE,URINE POSITIVE (NEGATIVE); OCCULT BLOOD,URINE TRACE (NEGATIVE); PH,URINE 5.5 (5.0-8.0); PROTEIN,URINE POS 1+ (NEGATIVE); UROBILINOGEN,URINE 0.2 mg/dL (<=1.0)
[2018-12-10 17:15] LABS: RBC,URINE 0-2 /HPF (0-2)
[2018-12-10 17:16] LABS: BACTERIA,URINE Moderate /HPF (None Seen); CALCIUM OXALATE CRYSTALS,UR Few /LPF (None Seen); MUCUS,URINE Few LPF (None Seen); SQUAMOUS EPITHELIAL CELL,UR Few /LPF (None Seen)
[2018-12-10 19:56] VITALS: BP 120/78
[2018-12-10] MEDS: LORazepam 2 MG TABLET PO PRN (20:05)
[2018-12-11 05:37] VITALS: BP 100/72
[2018-12-11] MEDS ORDERED: ARIPiprazole LAUROXIL ER SUSPENSION 662 MG/2.4 ML SYRINGE IM ONE (11:15)
[2018-12-11] MEDS ORDERED: DOCUSATE SODIUM 100 MG CAPSULE PO PRN (12:15)
[2018-12-11] MEDS ORDERED: LOPERAMIDE HCL 2 MG CAPSULE PO PRN (12:15)
[2018-12-11] MEDS ORDERED: MAG HYDROX/AL HYDROX/SIMETH ES 30 ML SUSPENSION UDCUP PO PRN (12:15)
[2018-12-11] MEDS ORDERED: PETROLATUM,WHITE 28 GM JELLY TP PRN (12:15)
[2018-12-11] MEDS ORDERED: MAGNESIUM HYDROXIDE SUSPENSION 30 ML UDCUP PO PRN (12:15)
[2018-12-11] MEDS ORDERED: ALBUTEROL SULFATE HFA 90 MCG/PUFF 8 GM INHALER IH PRN (12:15)
[2018-12-11] MEDS ORDERED: ACETAMINOPHEN 325 MG TABLET PO PRN (12:15)
[2018-12-11] MEDS ORDERED: GuaiFENesin/D-METHORPHAN [SUGAR-FREE] 200-20MG/10 ML SYRUP UDCUP PO PRN (12:15)
[2018-12-11] MEDS ORDERED: CloNIDine HCL 0.1 MG TABLET PO PRN (12:15)
[2018-12-11] MEDS ORDERED: ONDANSETRON HCL 4 MG TABLET PO PRN (12:15)
[2018-12-11 12:30] VITALS: BP 130/71
[2018-12-11] MEDS: LORazepam 2 MG TABLET PO PRN ×2 (12:34→16:35)
[2018-12-11] MEDS: NICOTINE 14 MG/24 HOUR PATCH TD PRN (12:44)
[2018-12-11 16:12] VITALS: BP 114/59
[2018-12-11] MEDS: CEPHALEXIN MONOHYDRATE 250 MG CAPSULE PO SCH (16:32)
[2018-12-12 06:35] VITALS: BP 117/65
[2018-12-12 08:13] VITALS: BP 116/71
[2018-12-12] MEDS: CEPHALEXIN MONOHYDRATE 250 MG CAPSULE PO SCH ×3 (08:13→16:49)
[2018-12-12] MEDS: SERTRALINE HCL 100 MG TABLET PO SCH (08:17)
[2018-12-12] MEDS: AmLODIPine BESYLATE 2.5 MG TABLET PO SCH (08:17)
[2018-12-12] MEDS: CloNIDine HCL 0.1 MG TABLET PO SCH (08:17)
[2018-12-12] MEDS: LORazepam 2 MG TABLET PO PRN ×3 (08:55→17:17)
[2018-12-12] MEDS: NICOTINE 14 MG/24 HOUR PATCH TD PRN (12:54)
[2018-12-13 03:35] VITALS: BP 112/67
[2018-12-13] MEDS: LORazepam 2 MG TABLET PO PRN ×3 (03:39→12:57)
[2018-12-13 07:52] LABS: HEMOGLOBIN A1C 4.8 % (4.5-6.2)
[2018-12-13 08:04] LABS: BASOPHILS % (AUTO) 0.7 % (0.0-2.0); EOSINOPHILS % (AUTO) 0.6 % (1.0-6.0); HEMATOCRIT 39.8 % (36-46); HEMOGLOBIN 13.2 g/dL (12.0-16.0); LYMPHOCYTES % (AUTO) 25.7 % (22.0-44.0); MEAN CORPUSCULAR HEMOGLOBIN 31.5 pg (26.0-34.0); MEAN CORPUSCULAR HGB CONC 33.1 G/dL (31.0-37.0); MEAN CORPUSCULAR VOLUME 95 fL (80-100); MONOCYTES # (AUTO) 0.4 K/uL (0.1-1.0); MONOCYTES % (AUTO) 5.4 % (2.0-9.0); NEUTROPHILS # (AUTO) 5.3 K/uL (1.8-7.7); NEUTROPHILS % (AUTO) 67.6 % (40.0-70.0); PLATELET COUNT (AUTO) 287 K/uL (150-450); RED BLOOD CELL COUNT(AUTO) 4.18 MIL/uL (4.00-5.20); RED CELL DISTRIBUTION WIDTH 13.4 % (11.5-14.5)
[2018-12-13] MEDS: NICOTINE 14 MG/24 HOUR PATCH TD PRN (08:09)
[2018-12-13] MEDS: CloNIDine HCL 0.1 MG TABLET PO SCH (08:09)
[2018-12-13] MEDS: AmLODIPine BESYLATE 2.5 MG TABLET PO SCH (08:09)
[2018-12-13] MEDS: CEPHALEXIN MONOHYDRATE 250 MG CAPSULE PO SCH ×2 (08:09→12:57)
[2018-12-13] MEDS: SERTRALINE HCL 100 MG TABLET PO SCH (08:09)
[2018-12-13 08:15] LABS: ALANINE AMINOTRANSFERASE 27 U/L (12-78); ALBUMIN 3.1 g/dL (3.4-5.0); ALKALINE PHOSPHATASE 55 U/L (46-116); ANION GAP 8 mmol/L (8-16); ASPARTATE AMINOTRANSFERASE 25 U/L (15-37); BILIRUBIN,TOTAL 0.4 mg/dL (0.1-1.0); CALCIUM, TOTAL 8.9 mg/dL (8.8-10.5); CARBON DIOXIDE 27 mmol/L (22-29); CHLORIDE 106 mmol/L (98-107); CHOL/HDL RATIO 3.3 (3.9-5.7); CHOLESTEROL 115 mg/dL (131-200); CREATININE 0.75 mg/dL (0.60-1.30); GLOMERULAR FILTR. RATE CALC > 60 mL/min (>60); GLUCOSE,RANDOM 78 mg/dL (70-110); HDL CHOLESTEROL 35 mg/dL (40-60); LDL CHOL (CALC.) 67 mg/dL (0-130); POTASSIUM 3.6 mmol/L (3.5-5.1); SODIUM SERUM 141 mmol/L (136-145); THYROID STIMULATING HORMONE 0.13 uIU/mL (0.36-3.74); TOTAL PROTEIN, SERUM 6.5 g/dL (6.4-8.2); TRIGLYCERIDES 67 mg/dL (15-150); UREA NITROGEN, BLOOD 13 mg/dL (7-18)
[2018-12-13 08:16] VITALS: BP 127/75
[2018-12-13] MEDS ORDERED: CEPH250 PO (14:39)
== END 2018-12-13 15:00 | disposition home or self-care (01) | DRG 753 ==
LOC: EMS 10:39 → B3A 16:38
PROVIDERS: ADMIT Psychiatry & Neurology Psychiatry; ATTEND Psychiatry & Neurology Psychiatry
DX: F31.4 Bipolar disorder, current episode depressed, severe, without psychotic features (principal); Z91.14 Patient's other noncompliance with medication regimen; D72.829 Elevated white blood cell count, unspecified; I10 Essential (primary) hypertension; E78.5 Hyperlipidemia, unspecified; F12.10 Cannabis abuse, uncomplicated; F15.10 Other stimulant abuse, uncomplicated; F17.200 Nicotine dependence, unspecified, uncomplicated; F41.9 Anxiety disorder, unspecified; J45.909 Unspecified asthma, uncomplicated; Z59.0 Homelessness; Z86.718 Personal history of other venous thrombosis and embolism; Z91.19 Patient's noncompliance with other medical treatment and regimen; Z79.899 Other long term (current) drug therapy
CPT/HCPCS: 83036; 84443; 87086; G0480

== ENCOUNTER 2019-07-09 10:17 | Inpatient (IN) | payer MEDICAID ==
[~2019-07-09] VITALS: Ht 167.6 cm; Wt 79.4 kg
[~2019-07-09 10:17] MED LIST changes: +CEPH250 PO; -CLON.3 PO; +CLON0.3T PO
[2019-07-09 11:46] LABS: BASOPHILS % (AUTO) 0.8 % (0.0-2.0); EOSINOPHILS % (AUTO) 1.2 % (1.0-6.0); HEMOGLOBIN 14.1 g/dL (12.0-16.0); LYMPHOCYTES # (AUTO) 2.4 K/uL (1.0-4.8); LYMPHOCYTES % (AUTO) 30.9 % (22.0-44.0); MEAN CORPUSCULAR HEMOGLOBIN 30.4 pg (26.0-34.0); MEAN CORPUSCULAR HGB CONC 34.2 G/dL (31.0-37.0); MEAN CORPUSCULAR VOLUME 89 fL (80-100); MONOCYTES # (AUTO) 0.5 K/uL (0.1-1.0); MONOCYTES % (AUTO) 6.1 % (2.0-9.0); NEUTROPHILS # (AUTO) 4.7 K/uL (1.8-7.7); PLATELET COUNT (AUTO) 301 K/uL (150-450); RED BLOOD CELL COUNT(AUTO) 4.62 MIL/uL (4.00-5.20); RED CELL DISTRIBUTION WIDTH 14.8 % (11.5-14.5)
[2019-07-09 11:56] LABS: ANION GAP 6 mmol/L (8-16); CALCIUM, TOTAL 9.5 mg/dL (8.8-10.5); CARBON DIOXIDE 28 mmol/L (22-29); CHLORIDE 104 mmol/L (98-107); CREATININE 0.78 mg/dL (0.60-1.30); GLOMERULAR FILTR. RATE CALC > 60 mL/min (>60); GLUCOSE,RANDOM 90 mg/dL (70-110); POTASSIUM 3.3 mmol/L (3.5-5.1); SODIUM SERUM 138 mmol/L (136-145); UREA NITROGEN, BLOOD 13 mg/dL (7-18)
[2019-07-09 11:58] LABS: AMPHET/METH SCREEN,URINE POSITIVE (NEGATIVE); BARBITURATE SCREEN, URINE NEGATIVE (NEGATIVE); BENZODIAZEPINES SCREEN,URINE NEGATIVE (NEGATIVE); CANNABINOID SCREEN,URINE POSITIVE (NEGATIVE); COCAINE SCREEN,URINE NEGATIVE (NEGATIVE); METHADONE SCREEN, URINE NEGATIVE (NEGATIVE); OPIATE SCREEN,URINE NEGATIVE (NEGATIVE)
[2019-07-09 12:01] LABS: PHENCYCLIDINE SCREEN,URINE NEGATIVE (NEGATIVE)
[2019-07-09 12:23] LABS: ALANINE AMINOTRANSFERASE 28 U/L (12-78); ALBUMIN 3.6 g/dL (3.4-5.0); ALKALINE PHOSPHATASE 87 U/L (46-116); ASPARTATE AMINOTRANSFERASE 20 U/L (15-37); BILIRUBIN,TOTAL 0.2 mg/dL (0.1-1.0); HCG,QUANTITATIVE < 1 mIU/mL (0-6); TOTAL PROTEIN, SERUM 7.6 g/dL (6.4-8.2)
[2019-07-09] MEDS ORDERED: QUEtiapine FUMARATE 100 MG TABLET PO ONE (12:30)
[2019-07-09] MEDS ORDERED: QUEtiapine FUMARATE 25 MG TABLET PO ONE (12:30)
[2019-07-09] MEDS ORDERED: POTASSIUM CHLORIDE 10% 40 MEQ/30 ML LIQUID UDCUP PO ONE (12:30)
[2019-07-09] MEDS ORDERED: LORazepam 2 MG TABLET PO ONE (12:30)
[2019-07-09] MEDS ORDERED: INFLUENZA VIRUS VACCINE QVS 2019-20 (3YR+)/PF 60 MCG/0.5 ML SYRINGE IM ONE (15:15)
[2019-07-09] MEDS ORDERED: ALBUTEROL SULFATE HFA 90 MCG/PUFF 8 GM INHALER IH PRN (21:00)
[2019-07-09] MEDS ORDERED: DOCUSATE SODIUM 100 MG CAPSULE PO PRN (21:00)
[2019-07-09] MEDS ORDERED: NICOTINE 14 MG/24 HOUR PATCH TD PRN (21:00)
[2019-07-09] MEDS ORDERED: CloNIDine HCL 0.1 MG TABLET PO PRN (21:00)
[2019-07-09] MEDS ORDERED: ACETAMINOPHEN 325 MG TABLET PO PRN (21:00)
[2019-07-09] MEDS ORDERED: MAGNESIUM HYDROXIDE SUSPENSION 30 ML UDCUP PO PRN (21:00)
[2019-07-09] MEDS ORDERED: ONDANSETRON HCL 4 MG TABLET PO PRN (21:00)
[2019-07-09] MEDS ORDERED: PETROLATUM,WHITE 28 GM JELLY TP PRN (21:00)
[2019-07-09] MEDS ORDERED: MAG HYDROX/AL HYDROX/SIMETH ES 30 ML SUSPENSION UDCUP PO PRN (21:00)
[2019-07-09] MEDS ORDERED: GuaiFENesin/D-METHORPHAN [SUGAR-FREE] 200-20MG/10 ML SYRUP UDCUP PO PRN (21:00)
[2019-07-09] MEDS ORDERED: LOPERAMIDE HCL 2 MG CAPSULE PO PRN (21:00)
[2019-07-10 06:10] VITALS: BP 132/82
[2019-07-10] MEDS: SERTRALINE HCL 50 MG TABLET PO SCH (09:18)
[2019-07-10] MEDS: LORazepam 0.5 MG TABLET PO PRN ×2 (09:19→16:21)
[2019-07-10 16:15] VITALS: BP 159/98
[2019-07-11] MEDS: ZOLPIDEM TARTRATE 10 MG TABLET PO PRN (01:07)
[2019-07-11] MEDS: LORazepam 0.5 MG TABLET PO PRN ×3 (05:07→13:09)
[2019-07-11] MEDS: SERTRALINE HCL 50 MG TABLET PO SCH (09:02)
[2019-07-11] MEDS ORDERED: LORazepam 2 MG/ML VIAL IM ONE (16:15)
[2019-07-11] MEDS ORDERED: DiphenhydrAMINE HCL 50 MG/ML VIAL IM ONE (16:15)
[2019-07-11 16:21] VITALS: BP 108/63
[2019-07-12 08:24] VITALS: BP 107/62
[2019-07-12] MEDS: DIVALPROEX SODIUM 500 MG ER TABLET PO SCH ×2 (08:51→16:50)
[2019-07-12] MEDS ORDERED: ARIPiprazole 5 MG TABLET PO SCH (09:00)
[2019-07-12] MEDS: LORazepam 0.5 MG TABLET PO PRN ×2 (11:11→16:46)
[2019-07-12] MEDS ORDERED: HYPROMELLOSE 0.5% 15 ML OPHTHALMIC SOLUTION OU PRN (12:15)
[2019-07-12 17:11] VITALS: BP 144/89
[2019-07-12] MEDS ORDERED: LURASIDONE HCL 40 MG TABLET PO SCH (21:00)
[2019-07-13] MEDS: ZOLPIDEM TARTRATE 10 MG TABLET PO PRN ×2 (01:28→21:32)
[2019-07-13 08:40] VITALS: BP 144/96
[2019-07-13] MEDS: LORazepam 2 MG TABLET PO PRN ×3 (09:08→21:32)
[2019-07-13] MEDS: NALTREXONE HCL 50 MG TABLET PO SCH (09:08)
[2019-07-13 17:00] VITALS: BP 136/84
[2019-07-13] MEDS ORDERED: NALT50TA PO (18:38)
[2019-07-13] MEDS ORDERED: LURA40 PO (18:38)
[2019-07-13] MEDS ORDERED: LURASIDONE HCL 40 MG TABLET PO SCH (21:00)
[2019-07-14 02:19] VITALS: BP 130/83
[2019-07-14] MEDS: LORazepam 2 MG TABLET PO PRN (08:11)
[2019-07-14] MEDS: NALTREXONE HCL 50 MG TABLET PO SCH (08:16)
[2019-07-14 08:20] VITALS: BP 132/80
== END 2019-07-14 13:30 | disposition home or self-care (01) | DRG 750 ==
LOC: EMS 10:19 → B3A 13:38
PROVIDERS: ADMIT Psychiatry & Neurology Psychiatry; ATTEND Psychiatry & Neurology Psychiatry
DX: F25.9 Schizoaffective disorder, unspecified (principal); F33.2 Major depressive disorder, recurrent severe without psychotic features; I11.0 Hypertensive heart disease with heart failure; I50.9 Heart failure, unspecified; R45.851 Suicidal ideations; G40.909 Epilepsy, unspecified, not intractable, without status epilepticus; E87.6 Hypokalemia; F10.10 Alcohol abuse, uncomplicated; F15.10 Other stimulant abuse, uncomplicated; F17.200 Nicotine dependence, unspecified, uncomplicated; J45.909 Unspecified asthma, uncomplicated; K21.9 Gastro-esophageal reflux disease without esophagitis; Z59.0 Homelessness; Z86.718 Personal history of other venous thrombosis and embolism; Z79.899 Other long term (current) drug therapy
CPT/HCPCS: G0480; J1200; J2060; J3230

== ENCOUNTER 2019-08-11 14:42 | Inpatient (IN) | payer MEDICAID ==
[~2019-08-11] VITALS: Ht 157.5 cm; Wt 84.6 kg
[~2019-08-11 14:42] MED LIST changes: -AMLO2.5T4 PO; -CEPH250 PO; -CLON0.3T PO; +LURA40 PO; +NALT50TA PO; -SERT100T12 PO
[2019-08-11] MEDS ORDERED: INFLUENZA VIRUS VACCINE QVS 2019-20 (3YR+)/PF 60 MCG/0.5 ML SYRINGE IM ONE (15:45)
[2019-08-11] MEDS ORDERED: HALOPERIDOL 5 MG TABLET PO PRN (15:45)
[2019-08-11] MEDS ORDERED: ZOLPIDEM TARTRATE 10 MG TABLET PO PRN (15:45)
[2019-08-11 17:16] VITALS: BP 114/71
[2019-08-11] MEDS: LORazepam 2 MG TABLET PO PRN (17:18)
[2019-08-12 05:20] VITALS: BP 110/70
[2019-08-12] MEDS: NICOTINE 14 MG/24 HOUR PATCH TD SCH (08:57)
[2019-08-12 09:33] LABS: AMPHET/METH SCREEN,URINE NEGATIVE (NEGATIVE); BARBITURATE SCREEN, URINE NEGATIVE (NEGATIVE); BENZODIAZEPINES SCREEN,URINE POSITIVE (NEGATIVE); CANNABINOID SCREEN,URINE POSITIVE (NEGATIVE); COCAINE SCREEN,URINE NEGATIVE (NEGATIVE); METHADONE SCREEN, URINE NEGATIVE (NEGATIVE); OPIATE SCREEN,URINE NEGATIVE (NEGATIVE)
[2019-08-12 09:38] LABS: APPEARANCE,URINE TURBID (CLEAR); BILIRUBIN,URINE NEGATIVE (NEGATIVE); GLUCOSE, URINE (UA) NEGATIVE (NEGATIVE); KETONES,URINE NEGATIVE (NEGATIVE); LEUKOCYTE ESTERASE ,URINE LARGE (NEGATIVE); NITRATE,URINE NEGATIVE (NEGATIVE); OCCULT BLOOD,URINE SMALL (NEGATIVE); PROTEIN,URINE TRACE (NEGATIVE); UROBILINOGEN,URINE 0.2 mg/dL (<=1.0)
[2019-08-12 09:51] LABS: PHENCYCLIDINE SCREEN,URINE NEGATIVE (NEGATIVE)
[2019-08-12 10:08] LABS: BACTERIA,URINE Many /HPF (None Seen); SQUAMOUS EPITHELIAL CELL,UR Few /LPF (None Seen); WBC,URINE >100 /HPF (0-5)
[2019-08-12] MEDS: LORazepam 2 MG TABLET PO PRN ×2 (11:04→15:04)
[2019-08-12] MEDS ORDERED: MAGNESIUM HYDROXIDE SUSPENSION 30 ML UDCUP PO PRN (16:00)
[2019-08-12] MEDS ORDERED: ACETAMINOPHEN 325 MG TABLET PO PRN (16:00)
[2019-08-12] MEDS ORDERED: CloNIDine HCL 0.1 MG TABLET PO PRN (16:00)
[2019-08-12] MEDS ORDERED: IBUPROFEN 400 MG TABLET PO PRN (16:00)
[2019-08-12] MEDS ORDERED: LOPERAMIDE HCL 2 MG CAPSULE PO PRN (16:00)
[2019-08-12] MEDS ORDERED: ALBUTEROL SULFATE HFA 90 MCG/PUFF 8 GM INHALER IH PRN (16:00)
[2019-08-12] MEDS ORDERED: DOCUSATE SODIUM 100 MG CAPSULE PO PRN (16:00)
[2019-08-12] MEDS ORDERED: MAG HYDROX/AL HYDROX/SIMETH ES 30 ML SUSPENSION UDCUP PO PRN (16:00)
[2019-08-12] MEDS ORDERED: PETROLATUM,WHITE 28 GM JELLY TP PRN (16:00)
[2019-08-12] MEDS ORDERED: GuaiFENesin/D-METHORPHAN [SUGAR-FREE] 200-20MG/10 ML SYRUP UDCUP PO PRN (16:00)
[2019-08-12] MEDS ORDERED: ONDANSETRON HCL 4 MG TABLET PO PRN (16:00)
[2019-08-12] MEDS ORDERED: NICOTINE 14 MG/24 HOUR PATCH TD PRN (16:00)
[2019-08-12] MEDS: CEPHALEXIN MONOHYDRATE 500 MG CAPSULE PO SCH (16:27)
[2019-08-12 16:45] VITALS: BP 141/88
[2019-08-12] MEDS ORDERED: LURASIDONE HCL 60 MG TABLET PO SCH (21:00)
[2019-08-13 00:20] VITALS: BP 140/76
[2019-08-13 07:42] LABS: BASOPHILS % (AUTO) 0.6 % (0.0-2.0); EOSINOPHILS % (AUTO) 1.6 % (1.0-6.0); HEMATOCRIT 41.4 % (36-46); HEMOGLOBIN 13.6 g/dL (12.0-16.0); LYMPHOCYTES # (AUTO) 2.1 K/uL (1.0-4.8); LYMPHOCYTES % (AUTO) 29.1 % (22.0-44.0); MEAN CORPUSCULAR HEMOGLOBIN 29.1 pg (26.0-34.0); MEAN CORPUSCULAR HGB CONC 32.9 G/dL (31.0-37.0); MEAN CORPUSCULAR VOLUME 89 fL (80-100); MONOCYTES # (AUTO) 0.4 K/uL (0.1-1.0); MONOCYTES % (AUTO) 5.9 % (2.0-9.0); NEUTROPHILS # (AUTO) 4.6 K/uL (1.8-7.7); NEUTROPHILS % (AUTO) 62.8 % (40.0-70.0); PLATELET COUNT (AUTO) 291 K/uL (150-450); RED BLOOD CELL COUNT(AUTO) 4.68 MIL/uL (4.00-5.20); RED CELL DISTRIBUTION WIDTH 14.5 % (11.5-14.5)
[2019-08-13 08:20] LABS: ALANINE AMINOTRANSFERASE 24 U/L (12-78); ALBUMIN 3.3 g/dL (3.4-5.0); ALKALINE PHOSPHATASE 71 U/L (46-116); ANION GAP 10 mmol/L (8-16); ASPARTATE AMINOTRANSFERASE 17 U/L (15-37); BILIRUBIN,TOTAL 0.2 mg/dL (0.1-1.0); CARBON DIOXIDE 26 mmol/L (22-29); CHLORIDE 104 mmol/L (98-107); CHOLESTEROL 171 mg/dL (131-200); CREATININE 0.81 mg/dL (0.60-1.30); GLOMERULAR FILTR. RATE CALC > 60 mL/min (>60); GLUCOSE,RANDOM 87 mg/dL (70-110); HCG,QUANTITATIVE < 1 mIU/mL (0-6); HDL CHOLESTEROL 43 mg/dL (40-60); LDL CHOL (CALC.) 104 mg/dL (0-130); POTASSIUM 4.2 mmol/L (3.5-5.1); SODIUM SERUM 140 mmol/L (136-145); THYROID STIMULATING HORMONE 1.19 uIU/mL (0.36-3.74); TOTAL PROTEIN, SERUM 6.5 g/dL (6.4-8.2); TRIGLYCERIDES 120 mg/dL (15-150); UREA NITROGEN, BLOOD 14 mg/dL (7-18)
[2019-08-13] MEDS ORDERED: SERTRALINE HCL 100 MG TABLET PO SCH (09:00)
[2019-08-13 09:30] VITALS: BP 138/78
[2019-08-13] MEDS: CEPHALEXIN MONOHYDRATE 500 MG CAPSULE PO SCH (09:33)
[2019-08-13] MEDS: LORazepam 2 MG TABLET PO PRN (09:33)
[2019-08-13] MEDS: NICOTINE 14 MG/24 HOUR PATCH TD SCH (09:47)
[2019-08-13] MEDS ORDERED: CEPH-582 PO (13:13)
[2019-08-13] MEDS ORDERED: LURA40 PO (13:22)
[2019-08-13] MEDS ORDERED: SERT100T12 PO (13:22)
== END 2019-08-13 14:28 | disposition home or self-care (01) | DRG 753 ==
LOC: B3A 15:59
PROVIDERS: ADMIT Psychiatry & Neurology Psychiatry; ATTEND Psychiatry & Neurology Psychiatry
DX: F31.9 Bipolar disorder, unspecified (principal); I11.0 Hypertensive heart disease with heart failure; I50.9 Heart failure, unspecified; G40.909 Epilepsy, unspecified, not intractable, without status epilepticus; F41.9 Anxiety disorder, unspecified; J45.909 Unspecified asthma, uncomplicated; E78.5 Hyperlipidemia, unspecified; F10.10 Alcohol abuse, uncomplicated; F12.90 Cannabis use, unspecified, uncomplicated; Z59.0 Homelessness; Z79.899 Other long term (current) drug therapy; Z86.718 Personal history of other venous thrombosis and embolism
CPT/HCPCS: 80307; 83036; 84439; 84443; 87086

== ENCOUNTER 2019-09-09 15:22 | Inpatient (IN) | payer MEDICAID ==
[~2019-09-09] VITALS: Ht 160 cm; Wt 82.1 kg
[~2019-09-09 15:22] MED LIST changes: +CEPH-582 PO; -LURA40 PO; +LURA40TA2 PO; -NALT50TA PO; +SERT100T12 PO
[2019-09-09] MEDS ORDERED: HALOPERIDOL 5 MG TABLET PO PRN (18:15)
[2019-09-09 18:22] VITALS: BP 148/95
[2019-09-09] MEDS ORDERED: LURA60TA PO (19:15)
[2019-09-09] MEDS ORDERED: PNEUMOCOCCAL VACCINE POLYVALENT 0.5 ML VIAL [PPSV23] IM ONE (19:30)
[2019-09-09] MEDS ORDERED: INFLUENZA VIRUS VACCINE QVS 2019-20 (3YR+)/PF 60 MCG/0.5 ML SYRINGE IM ONE (19:30)
[2019-09-09 19:33] VITALS: BP 153/94
[2019-09-09] MEDS: LORazepam 2 MG TABLET PO PRN (19:53)
[2019-09-09] MEDS: NICOTINE 21 MG/24 HOUR PATCH TD SCH (20:14)
[2019-09-09] MEDS: ZOLPIDEM TARTRATE 10 MG TABLET PO PRN (21:01)
[2019-09-09] MEDS ORDERED: ACETAMINOPHEN 325 MG TABLET PO PRN (21:45)
[2019-09-09] MEDS ORDERED: PETROLATUM,WHITE 28 GM JELLY TP PRN (21:45)
[2019-09-09] MEDS ORDERED: ALBUTEROL SULFATE HFA 90 MCG/PUFF 8 GM INHALER IH PRN (21:45)
[2019-09-09] MEDS ORDERED: CloNIDine HCL 0.1 MG TABLET PO PRN (21:45)
[2019-09-09] MEDS ORDERED: DOCUSATE SODIUM 100 MG CAPSULE PO PRN (21:45)
[2019-09-09] MEDS ORDERED: GuaiFENesin/D-METHORPHAN [SUGAR-FREE] 200-20MG/10 ML SYRUP UDCUP PO PRN (21:45)
[2019-09-09] MEDS ORDERED: NICOTINE 14 MG/24 HOUR PATCH TD PRN (21:45)
[2019-09-09] MEDS ORDERED: ONDANSETRON HCL 4 MG TABLET PO PRN (21:45)
[2019-09-09] MEDS ORDERED: MAGNESIUM HYDROXIDE SUSPENSION 30 ML UDCUP PO PRN (21:45)
[2019-09-09] MEDS ORDERED: LOPERAMIDE HCL 2 MG CAPSULE PO PRN (21:45)
[2019-09-09] MEDS ORDERED: MAG HYDROX/AL HYDROX/SIMETH ES 30 ML SUSPENSION UDCUP PO PRN (21:45)
[2019-09-10] MEDS: LORazepam 2 MG TABLET PO PRN ×3 (01:25→16:33)
[2019-09-10 03:16] VITALS: BP 140/87
[2019-09-10 08:37] LABS: BASOPHILS % (AUTO) 0.8 % (0.0-2.0); EOSINOPHILS % (AUTO) 1.8 % (1.0-6.0); HEMATOCRIT 40.3 % (36-46); HEMOGLOBIN 13.2 g/dL (12.0-16.0); LYMPHOCYTES # (AUTO) 2.7 K/uL (1.0-4.8); LYMPHOCYTES % (AUTO) 31.2 % (22.0-44.0); MEAN CORPUSCULAR HEMOGLOBIN 28.8 pg (26.0-34.0); MEAN CORPUSCULAR HGB CONC 32.7 G/dL (31.0-37.0); MEAN CORPUSCULAR VOLUME 88 fL (80-100); MONOCYTES # (AUTO) 0.6 K/uL (0.1-1.0); MONOCYTES % (AUTO) 6.5 % (2.0-9.0); NEUTROPHILS # (AUTO) 5.1 K/uL (1.8-7.7); NEUTROPHILS % (AUTO) 59.7 % (40.0-70.0); PLATELET COUNT (AUTO) 326 K/uL (150-450); RED BLOOD CELL COUNT(AUTO) 4.58 MIL/uL (4.00-5.20); RED CELL DISTRIBUTION WIDTH 15.4 % (11.5-14.5)
[2019-09-10] MEDS: NICOTINE 21 MG/24 HOUR PATCH TD SCH (08:49)
[2019-09-10 09:01] LABS: APPEARANCE,URINE CLOUDY (CLEAR); BILIRUBIN,URINE NEGATIVE (NEGATIVE); GLUCOSE, URINE (UA) NEGATIVE (NEGATIVE); KETONES,URINE NEGATIVE (NEGATIVE); LEUKOCYTE ESTERASE ,URINE MODERATE (NEGATIVE); NITRATE,URINE NEGATIVE (NEGATIVE); OCCULT BLOOD,URINE NEGATIVE (NEGATIVE); PROTEIN,URINE TRACE (NEGATIVE); UROBILINOGEN,URINE 0.2 mg/dL (<=1.0)
[2019-09-10 09:14] LABS: ALANINE AMINOTRANSFERASE 21 U/L (12-78); ALBUMIN 3.7 g/dL (3.4-5.0); ALKALINE PHOSPHATASE 70 U/L (46-116); ANION GAP 12 mmol/L (8-16); ASPARTATE AMINOTRANSFERASE 13 U/L (15-37); BILIRUBIN,TOTAL 0.3 mg/dL (0.1-1.0); CALCIUM, TOTAL 8.5 mg/dL (8.8-10.5); CARBON DIOXIDE 23 mmol/L (22-29); CHLORIDE 104 mmol/L (98-107); CHOL/HDL RATIO 3.3 (3.9-5.7); CHOLESTEROL 181 mg/dL (131-200); CREATININE 0.62 mg/dL (0.60-1.30); FREE T4 (FREE THYROXINE) 0.88 ng/dL (0.76-1.46); GLOMERULAR FILTR. RATE CALC > 60 mL/min (>60); GLUCOSE,RANDOM 76 mg/dL (70-110); HCG,QUANTITATIVE < 1 mIU/mL (0-6); HDL CHOLESTEROL 55 mg/dL (40-60); LDL CHOL (CALC.) 111 mg/dL (0-130); POTASSIUM 3.9 mmol/L (3.5-5.1); SODIUM SERUM 139 mmol/L (136-145); THYROID STIMULATING HORMONE 2.54 uIU/mL (0.36-3.74); TOTAL PROTEIN, SERUM 7.3 g/dL (6.4-8.2); TRIGLYCERIDES 76 mg/dL (15-150); UREA NITROGEN, BLOOD 13 mg/dL (7-18)
[2019-09-10 09:23] LABS: METHADONE SCREEN, URINE NEGATIVE (NEGATIVE)
[2019-09-10 09:31] LABS: BACTERIA,URINE Few /HPF (None Seen); CALCIUM OXALATE CRYSTALS,UR Few /LPF (None Seen); RBC,URINE 0-2 /HPF (0-2); SQUAMOUS EPITHELIAL CELL,UR Few /LPF (None Seen)
[2019-09-10 09:34] LABS: AMPHET/METH SCREEN,URINE NEGATIVE (NEGATIVE); BARBITURATE SCREEN, URINE NEGATIVE (NEGATIVE); BENZODIAZEPINES SCREEN,URINE NEGATIVE (NEGATIVE); CANNABINOID SCREEN,URINE POSITIVE (NEGATIVE); COCAINE SCREEN,URINE NEGATIVE (NEGATIVE); OPIATE SCREEN,URINE NEGATIVE (NEGATIVE); PHENCYCLIDINE SCREEN,URINE NEGATIVE (NEGATIVE)
[2019-09-10 16:22] VITALS: BP 116/72
[2019-09-10] MEDS ORDERED: LURASIDONE HCL 80 MG TABLET PO SCH (17:00)
[2019-09-10] MEDS: CEPHALEXIN MONOHYDRATE 250 MG CAPSULE PO SCH (17:16)
[2019-09-10] MEDS: ZOLPIDEM TARTRATE 10 MG TABLET PO PRN (22:41)
[2019-09-11] MEDS: CEPHALEXIN MONOHYDRATE 250 MG CAPSULE PO SCH ×2 (00:07→08:39)
[2019-09-11 08:11] VITALS: BP 119/74
[2019-09-11] MEDS: LORazepam 2 MG TABLET PO PRN ×2 (08:39→13:06)
[2019-09-11] MEDS ORDERED: SERTRALINE HCL 100 MG TABLET PO SCH (09:00)
[2019-09-11] MEDS: NICOTINE 21 MG/24 HOUR PATCH TD SCH (09:56)
[2019-09-11] MEDS ORDERED: CEPH-581 PO (13:43)
[2019-09-11] MEDS ORDERED: LURA80TA2 PO (13:43)
[2019-09-11] MEDS ORDERED: SERT100T12 PO (13:43)
== END 2019-09-11 15:00 | disposition home or self-care (01) | DRG 754 ==
LOC: B3A 18:18
PROVIDERS: ADMIT Psychiatry & Neurology Psychiatry; ATTEND Psychiatry & Neurology Psychiatry
DX: F32.9 Major depressive disorder, single episode, unspecified (principal); I11.0 Hypertensive heart disease with heart failure; I50.9 Heart failure, unspecified; R45.851 Suicidal ideations; G40.909 Epilepsy, unspecified, not intractable, without status epilepticus; E78.5 Hyperlipidemia, unspecified; F41.9 Anxiety disorder, unspecified; J45.909 Unspecified asthma, uncomplicated; N39.0 Urinary tract infection, site not specified; Z86.718 Personal history of other venous thrombosis and embolism; Z88.2 Allergy status to sulfonamides; Z88.8 Allergy status to other drugs, medicaments and biological substances
CPT/HCPCS: 80307; 83036; 84439; 84443; 87081; 87086

== ENCOUNTER 2019-09-15 08:25 | Inpatient (IN) | payer MEDICAID ==
[~2019-09-15] VITALS: Ht 160 cm; Wt 79.4 kg
[~2019-09-15 08:25] MED LIST changes: +CEPH-581 PO; -CEPH-582 PO; -LURA40TA2 PO; +LURA80TA2 PO
[2019-09-15 12:35] VITALS: BP 107/57
[2019-09-15] MEDS ORDERED: HALOPERIDOL 5 MG TABLET PO PRN (13:00)
[2019-09-15] MEDS ORDERED: PNEUMOCOCCAL VACCINE POLYVALENT 0.5 ML VIAL [PPSV23] IM ONE (13:45)
[2019-09-15 14:28] VITALS: BP 123/71
[2019-09-15 16:00] VITALS: BP 127/71
[2019-09-15] MEDS: LURASIDONE HCL 80 MG TABLET PO SCH (16:53)
[2019-09-15] MEDS: SERTRALINE HCL 100 MG TABLET PO SCH (16:53)
[2019-09-15] MEDS: LORazepam 2 MG TABLET PO PRN (17:02)
[2019-09-15] MEDS ORDERED: NICOTINE 14 MG/24 HOUR PATCH TD ONE (18:45)
[2019-09-16 05:33] VITALS: BP 125/60
[2019-09-16] MEDS: SERTRALINE HCL 100 MG TABLET PO SCH (08:27)
[2019-09-16] MEDS: NICOTINE 14 MG/24 HOUR PATCH TD SCH (08:28)
[2019-09-16] MEDS: LORazepam 2 MG TABLET PO PRN ×2 (08:28→17:17)
[2019-09-16] MEDS ORDERED: MAGNESIUM HYDROXIDE SUSPENSION 30 ML UDCUP PO PRN (09:30)
[2019-09-16] MEDS ORDERED: LOPERAMIDE HCL 2 MG CAPSULE PO PRN (09:30)
[2019-09-16] MEDS ORDERED: CloNIDine HCL 0.1 MG TABLET PO PRN (09:30)
[2019-09-16] MEDS ORDERED: MAG HYDROX/AL HYDROX/SIMETH ES 30 ML SUSPENSION UDCUP PO PRN (09:30)
[2019-09-16] MEDS ORDERED: ACETAMINOPHEN 325 MG TABLET PO PRN (09:30)
[2019-09-16] MEDS ORDERED: GuaiFENesin/D-METHORPHAN [SUGAR-FREE] 200-20MG/10 ML SYRUP UDCUP PO PRN (09:30)
[2019-09-16] MEDS ORDERED: DOCUSATE SODIUM 100 MG CAPSULE PO PRN (09:30)
[2019-09-16] MEDS ORDERED: NICOTINE 14 MG/24 HOUR PATCH TD PRN (09:30)
[2019-09-16] MEDS ORDERED: PETROLATUM,WHITE 28 GM JELLY TP PRN (09:30)
[2019-09-16] MEDS: GABAPENTIN 300 MG CAPSULE PO SCH ×4 (09:30→17:17)
[2019-09-16] MEDS ORDERED: ONDANSETRON HCL 4 MG TABLET PO PRN (09:30)
[2019-09-16] MEDS ORDERED: ALBUTEROL SULFATE HFA 90 MCG/PUFF 8 GM INHALER IH PRN (09:30)
[2019-09-16 16:09] VITALS: BP 121/69
[2019-09-16] MEDS: LURASIDONE HCL 80 MG TABLET PO SCH ×2 (17:00→17:17)
[2019-09-16] MEDS: ZOLPIDEM TARTRATE 10 MG TABLET PO PRN (21:12)
[2019-09-17 06:42] VITALS: BP 159/99
[2019-09-17] MEDS: LORazepam 2 MG TABLET PO PRN ×3 (07:10→17:30)
[2019-09-17 07:25] LABS: BASOPHILS % (AUTO) 0.7 % (0.0-2.0); EOSINOPHILS % (AUTO) 1.9 % (1.0-6.0); HEMATOCRIT 42.8 % (36-46); HEMOGLOBIN 14.2 g/dL (12.0-16.0); LYMPHOCYTES # (AUTO) 2.5 K/uL (1.0-4.8); LYMPHOCYTES % (AUTO) 32.3 % (22.0-44.0); MEAN CORPUSCULAR HEMOGLOBIN 29.1 pg (26.0-34.0); MEAN CORPUSCULAR HGB CONC 33.3 G/dL (31.0-37.0); MEAN CORPUSCULAR VOLUME 87 fL (80-100); MONOCYTES # (AUTO) 0.4 K/uL (0.1-1.0); MONOCYTES % (AUTO) 5.3 % (2.0-9.0); NEUTROPHILS # (AUTO) 4.6 K/uL (1.8-7.7); NEUTROPHILS % (AUTO) 59.8 % (40.0-70.0); PLATELET COUNT (AUTO) 340 K/uL (150-450); RED CELL DISTRIBUTION WIDTH 15.8 % (11.5-14.5)
[2019-09-17 08:02] LABS: ALANINE AMINOTRANSFERASE 18 U/L (12-78); ALKALINE PHOSPHATASE 79 U/L (46-116); ANION GAP 9 mmol/L (8-16); ASPARTATE AMINOTRANSFERASE 10 U/L (15-37); BILIRUBIN,TOTAL 0.3 mg/dL (0.1-1.0); CALCIUM, TOTAL 8.7 mg/dL (8.8-10.5); CARBON DIOXIDE 27 mmol/L (22-29); CHLORIDE 104 mmol/L (98-107); CHOL/HDL RATIO 3.2 (3.9-5.7); CHOLESTEROL 171 mg/dL (131-200); CREATININE 0.66 mg/dL (0.60-1.30); GLOMERULAR FILTR. RATE CALC > 60 mL/min (>60); GLUCOSE,RANDOM 85 mg/dL (70-110); HCG,QUANTITATIVE < 1 mIU/mL (0-6); HDL CHOLESTEROL 54 mg/dL (40-60); LDL CHOL (CALC.) 110 mg/dL (0-130); POTASSIUM 3.9 mmol/L (3.5-5.1); SODIUM SERUM 140 mmol/L (136-145); TOTAL PROTEIN, SERUM 7.3 g/dL (6.4-8.2); TRIGLYCERIDES 37 mg/dL (15-150); UREA NITROGEN, BLOOD 15 mg/dL (7-18)
[2019-09-17 08:24] VITALS: BP 116/79
[2019-09-17] MEDS: GABAPENTIN 300 MG CAPSULE PO SCH ×2 (09:00→17:00)
[2019-09-17] MEDS: SERTRALINE HCL 100 MG TABLET PO SCH (09:08)
[2019-09-17] MEDS: NICOTINE 14 MG/24 HOUR PATCH TD SCH (09:08)
[2019-09-17 16:00] VITALS: BP 136/80
[2019-09-17] MEDS: LURASIDONE HCL 80 MG TABLET PO SCH (17:00)
[2019-09-18 06:26] VITALS: BP 111/69
[2019-09-18 08:00] VITALS: BP 122/75
[2019-09-18] MEDS: LORazepam 2 MG TABLET PO PRN ×3 (08:55→20:00)
[2019-09-18] MEDS: GABAPENTIN 300 MG CAPSULE PO SCH ×2 (08:55→17:00)
[2019-09-18] MEDS: SERTRALINE HCL 100 MG TABLET PO SCH (08:55)
[2019-09-18] MEDS: NICOTINE 14 MG/24 HOUR PATCH TD SCH (08:56)
[2019-09-18] MEDS: LURASIDONE HCL 80 MG TABLET PO SCH (17:00)
[2019-09-18] MEDS: OLANZapine 5 MG TABLET PO SCH (17:00)
[2019-09-18 17:39] VITALS: BP 130/84
[2019-09-18] MEDS: ZOLPIDEM TARTRATE 10 MG TABLET PO PRN (20:59)
[2019-09-19 06:00] VITALS: BP 133/90
[2019-09-19 08:43] VITALS: BP 133/90
[2019-09-19] MEDS: OLANZapine 5 MG TABLET PO SCH ×2 (09:00→17:00)
[2019-09-19] MEDS: GABAPENTIN 300 MG CAPSULE PO SCH ×2 (09:00→17:00)
[2019-09-19] MEDS: LORazepam 2 MG TABLET PO PRN ×3 (09:09→20:35)
[2019-09-19] MEDS: SERTRALINE HCL 100 MG TABLET PO SCH (09:09)
[2019-09-19] MEDS: NICOTINE 14 MG/24 HOUR PATCH TD SCH (09:09)
[2019-09-19 16:27] VITALS: BP 104/107
[2019-09-19] MEDS: LURASIDONE HCL 80 MG TABLET PO SCH (17:00)
[2019-09-19 17:23] VITALS: BP 138/96
[2019-09-19] MEDS ORDERED: SUMAtriptan SUCCINATE 25 MG TABLET PO PRN (17:45)
[2019-09-19] MEDS: ZOLPIDEM TARTRATE 10 MG TABLET PO PRN (21:28)
[2019-09-20 04:44] VITALS: BP 126/88
[2019-09-20 08:15] VITALS: BP 131/81
[2019-09-20] MEDS: OLANZapine 5 MG TABLET PO SCH (08:33)
[2019-09-20] MEDS: NICOTINE 14 MG/24 HOUR PATCH TD SCH (08:33)
[2019-09-20] MEDS: SERTRALINE HCL 100 MG TABLET PO SCH (08:33)
[2019-09-20] MEDS: GABAPENTIN 300 MG CAPSULE PO SCH (08:34)
[2019-09-20] MEDS: LORazepam 2 MG TABLET PO PRN (08:34)
[2019-09-20] MEDS ORDERED: DEXTRAN 70 0.1%/HYPROMELL 0.3% 0.9 ML OPHTHALMIC SOLUTION [PF] OU SCH (09:00)
[2019-09-20] MEDS ORDERED: OLAN5TAB2 PO (09:53)
[2019-09-20] MEDS ORDERED: GABA-531 PO (09:53)
== END 2019-09-20 14:04 | disposition home or self-care (01) | DRG 750 ==
LOC: B3A 13:08
PROVIDERS: ADMIT Psychiatry & Neurology Psychiatry; ATTEND Psychiatry & Neurology Psychiatry
DX: F25.9 Schizoaffective disorder, unspecified (principal); I11.0 Hypertensive heart disease with heart failure; I50.9 Heart failure, unspecified; R45.851 Suicidal ideations; G40.909 Epilepsy, unspecified, not intractable, without status epilepticus; E78.5 Hyperlipidemia, unspecified; K21.9 Gastro-esophageal reflux disease without esophagitis; F10.10 Alcohol abuse, uncomplicated; J45.909 Unspecified asthma, uncomplicated; Z59.0 Homelessness; Z86.718 Personal history of other venous thrombosis and embolism
CPT/HCPCS: 83036; 87081

== ENCOUNTER 2020-02-03 17:15 | Inpatient (IN) | payer MEDICAID ==
[~2020-02-03 17:15] MED LIST changes: -CEPH-581 PO; +GABA-1181 PO; +OLAN5TAB2 PO
[2020-02-04] MEDS ORDERED: PNEUMOCOCCAL VACCINE POLYVALENT 0.5 ML VIAL [PPSV23] IM ONE (03:00)
[2020-02-04 03:48] VITALS: BP 128/86
[2020-02-04 07:59] LABS: BASOPHILS % (AUTO) 1.3 % (0.0-2.0); EOSINOPHILS % (AUTO) 3.2 % (1.0-6.0); HEMOGLOBIN 12.8 g/dL (12.0-16.0); LYMPHOCYTES # (AUTO) 2.4 K/uL (1.0-4.8); LYMPHOCYTES % (AUTO) 39.3 % (22.0-44.0); MEAN CORPUSCULAR HEMOGLOBIN 29.2 pg (26.0-34.0); MEAN CORPUSCULAR HGB CONC 33.7 G/dL (31.0-37.0); MEAN CORPUSCULAR VOLUME 87 fL (80-100); MONOCYTES # (AUTO) 0.3 K/uL (0.1-1.0); MONOCYTES % (AUTO) 5.2 % (2.0-9.0); NEUTROPHILS # (AUTO) 3.1 K/uL (1.8-7.7); PLATELET COUNT (AUTO) 332 K/uL (150-450); RED CELL DISTRIBUTION WIDTH 17.2 % (11.5-14.5)
[2020-02-04 08:06] VITALS: BP 110/63
[2020-02-04] MEDS: LORazepam 2 MG TABLET PO PRN (08:26)
[2020-02-04] MEDS: HALOPERIDOL 5 MG TABLET PO PRN (08:27)
[2020-02-04 08:36] LABS: ALANINE AMINOTRANSFERASE 21 U/L (12-78); ALBUMIN 3.1 g/dL (3.4-5.0); ALKALINE PHOSPHATASE 60 U/L (46-116); ANION GAP 6 mmol/L (8-16); ASPARTATE AMINOTRANSFERASE 12 U/L (15-37); BILIRUBIN,TOTAL 0.2 mg/dL (0.1-1.0); CALCIUM, TOTAL 8.5 mg/dL (8.8-10.5); CARBON DIOXIDE 27 mmol/L (22-29); CHLORIDE 105 mmol/L (98-107); CHOL/HDL RATIO 2.9 (3.9-5.7); CHOLESTEROL 117 mg/dL (131-200); CREATININE 0.86 mg/dL (0.60-1.30); FREE T4 (FREE THYROXINE) 1.02 ng/dL (0.76-1.46); GLOMERULAR FILTR. RATE CALC > 60 mL/min (>60); GLUCOSE,RANDOM 94 mg/dL (70-110); HCG,QUANTITATIVE 1 mIU/mL (0-6); HDL CHOLESTEROL 41 mg/dL (40-60); LDL CHOL (CALC.) 59 mg/dL (0-130); POTASSIUM 3.5 mmol/L (3.5-5.1); SODIUM SERUM 138 mmol/L (136-145); THYROID STIMULATING HORMONE 0.44 uIU/mL (0.36-3.74); TOTAL PROTEIN, SERUM 6.9 g/dL (6.4-8.2); TRIGLYCERIDES 83 mg/dL (15-150); UREA NITROGEN, BLOOD 11 mg/dL (7-18)
[2020-02-04] MEDS ORDERED: GuaiFENesin/D-METHORPHAN [SUGAR-FREE] 200-20MG/10 ML SYRUP UDCUP PO PRN (09:00)
[2020-02-04] MEDS ORDERED: CloNIDine HCL 0.1 MG TABLET PO PRN (09:00)
[2020-02-04] MEDS ORDERED: PETROLATUM,WHITE 28 GM JELLY TP PRN (09:00)
[2020-02-04] MEDS ORDERED: DOCUSATE SODIUM 100 MG CAPSULE PO PRN (09:00)
[2020-02-04] MEDS ORDERED: LOPERAMIDE HCL 2 MG CAPSULE PO PRN (09:00)
[2020-02-04] MEDS ORDERED: MAG HYDROX/AL HYDROX/SIMETH ES 30 ML SUSPENSION UDCUP PO PRN (09:00)
[2020-02-04] MEDS ORDERED: MAGNESIUM HYDROXIDE SUSPENSION 30 ML UDCUP PO PRN (09:00)
[2020-02-04] MEDS ORDERED: ALBUTEROL SULFATE HFA 90 MCG/PUFF 8 GM INHALER IH PRN (09:00)
[2020-02-04] MEDS ORDERED: ONDANSETRON HCL 4 MG TABLET PO PRN (09:00)
[2020-02-04] MEDS ORDERED: NICOTINE 14 MG/24 HOUR PATCH TD PRN (09:00)
[2020-02-04] MEDS ORDERED: ACETAMINOPHEN 325 MG TABLET PO PRN (09:00)
[2020-02-04] MEDS: SERTRALINE HCL 100 MG TABLET PO SCH (12:22)
[2020-02-04] MEDS: GABAPENTIN 300 MG CAPSULE PO SCH (15:52)
[2020-02-04] MEDS: LURASIDONE HCL 80 MG TABLET PO SCH (15:52)
[2020-02-04] MEDS: OLANZapine 5 MG TABLET PO SCH (15:52)
[2020-02-05 03:54] VITALS: BP 114/63
[2020-02-05] MEDS: GABAPENTIN 300 MG CAPSULE PO SCH ×2 (08:58→16:01)
[2020-02-05] MEDS: OLANZapine 5 MG TABLET PO SCH ×2 (08:58→16:02)
[2020-02-05] MEDS: LORazepam 2 MG TABLET PO PRN (08:58)
[2020-02-05] MEDS: SERTRALINE HCL 100 MG TABLET PO SCH (08:58)
[2020-02-05] MEDS: HALOPERIDOL 5 MG TABLET PO PRN (09:00)
[2020-02-05] MEDS: LURASIDONE HCL 80 MG TABLET PO SCH (16:02)
[2020-02-05 16:07] VITALS: BP 189/115
[2020-02-05] MEDS: AmLODIPine BESYLATE 10 MG TABLET PO SCH (17:39)
[2020-02-06 01:26] VITALS: BP 136/90
[2020-02-06 08:13] VITALS: BP 100/60
[2020-02-06] MEDS: OLANZapine 5 MG TABLET PO SCH ×2 (08:40→17:53)
[2020-02-06] MEDS: SERTRALINE HCL 100 MG TABLET PO SCH (08:40)
[2020-02-06] MEDS: GABAPENTIN 300 MG CAPSULE PO SCH ×3 (08:40→17:00)
[2020-02-06] MEDS: AmLODIPine BESYLATE 10 MG TABLET PO SCH (08:40)
[2020-02-06 16:02] VITALS: BP 139/104
[2020-02-06] MEDS: LURASIDONE HCL 80 MG TABLET PO SCH (17:53)
[2020-02-06] MEDS: CIPROFLOXACIN HCL 0.3% 2.5 ML OPHTHALMIC SOLUTION OD SCH (17:53)
[2020-02-06] MEDS: LORazepam 2 MG TABLET PO PRN (18:43)
[2020-02-06] MEDS: ZOLPIDEM TARTRATE 10 MG TABLET PO PRN (20:48)
[2020-02-07] MEDS: GABAPENTIN 300 MG CAPSULE PO SCH ×2 (08:15→17:00)
[2020-02-07] MEDS: AmLODIPine BESYLATE 10 MG TABLET PO SCH (08:15)
[2020-02-07] MEDS: OLANZapine 5 MG TABLET PO SCH ×2 (08:15→17:12)
[2020-02-07] MEDS: SERTRALINE HCL 100 MG TABLET PO SCH (08:16)
[2020-02-07] MEDS: CIPROFLOXACIN HCL 0.3% 2.5 ML OPHTHALMIC SOLUTION OD SCH ×2 (08:17→17:12)
[2020-02-07 08:57] VITALS: BP 117/77
[2020-02-07] MEDS: LORazepam 2 MG TABLET PO PRN ×2 (13:30→17:48)
[2020-02-07 16:08] VITALS: BP 125/77
[2020-02-07] MEDS: LURASIDONE HCL 80 MG TABLET PO SCH (17:12)
[2020-02-08 04:14] VITALS: BP 120/71
[2020-02-08 08:31] VITALS: BP 100/62
[2020-02-08] MEDS: SERTRALINE HCL 100 MG TABLET PO SCH (08:34)
[2020-02-08] MEDS: LORazepam 2 MG TABLET PO PRN ×2 (08:34→19:50)
[2020-02-08] MEDS: OLANZapine 5 MG TABLET PO SCH ×2 (08:34→17:00)
[2020-02-08] MEDS: AmLODIPine BESYLATE 10 MG TABLET PO SCH (08:34)
[2020-02-08] MEDS: CIPROFLOXACIN HCL 0.3% 2.5 ML OPHTHALMIC SOLUTION OD SCH ×2 (08:34→17:00)
[2020-02-08] MEDS: GABAPENTIN 300 MG CAPSULE PO SCH ×2 (08:35→17:00)
[2020-02-08] MEDS: LURASIDONE HCL 80 MG TABLET PO SCH (17:00)
[2020-02-08] MEDS: ZOLPIDEM TARTRATE 10 MG TABLET PO PRN (20:40)
[2020-02-09 03:35] VITALS: BP 105/63
[2020-02-09] MEDS: CIPROFLOXACIN HCL 0.3% 2.5 ML OPHTHALMIC SOLUTION OD SCH ×2 (08:34→16:55)
[2020-02-09] MEDS: GABAPENTIN 300 MG CAPSULE PO SCH ×3 (08:34→17:00)
[2020-02-09] MEDS: AmLODIPine BESYLATE 10 MG TABLET PO SCH (08:35)
[2020-02-09] MEDS: OLANZapine 5 MG TABLET PO SCH ×2 (08:35→16:54)
[2020-02-09] MEDS: LORazepam 2 MG TABLET PO PRN ×2 (08:35→16:01)
[2020-02-09] MEDS: SERTRALINE HCL 100 MG TABLET PO SCH (08:35)
[2020-02-09 16:07] VITALS: BP 132/69
[2020-02-09] MEDS: LURASIDONE HCL 80 MG TABLET PO SCH (16:54)
[2020-02-10 02:41] VITALS: BP 125/70
[2020-02-10] MEDS: SERTRALINE HCL 100 MG TABLET PO SCH (08:35)
[2020-02-10] MEDS: CIPROFLOXACIN HCL 0.3% 2.5 ML OPHTHALMIC SOLUTION OD SCH ×2 (08:35→16:34)
[2020-02-10] MEDS: OLANZapine 5 MG TABLET PO SCH ×2 (08:36→16:26)
[2020-02-10] MEDS: GABAPENTIN 300 MG CAPSULE PO SCH ×2 (08:36→17:00)
[2020-02-10] MEDS: AmLODIPine BESYLATE 10 MG TABLET PO SCH (08:36)
[2020-02-10] MEDS: LORazepam 2 MG TABLET PO PRN (08:36)
[2020-02-10 08:56] VITALS: BP 134/75
[2020-02-10 16:09] VITALS: BP 124/68
[2020-02-10] MEDS: LURASIDONE HCL 80 MG TABLET PO SCH (16:26)
[2020-02-11 06:36] VITALS: BP 123/75
[2020-02-11] MEDS: LORazepam 2 MG TABLET PO PRN (08:04)
[2020-02-11] MEDS: OLANZapine 5 MG TABLET PO SCH (08:04)
[2020-02-11] MEDS: AmLODIPine BESYLATE 10 MG TABLET PO SCH (08:04)
[2020-02-11] MEDS: SERTRALINE HCL 100 MG TABLET PO SCH (08:04)
[2020-02-11] MEDS: CIPROFLOXACIN HCL 0.3% 2.5 ML OPHTHALMIC SOLUTION OD SCH (08:04)
[2020-02-11 08:08] VITALS: BP 125/75
[2020-02-11] MEDS: GABAPENTIN 300 MG CAPSULE PO SCH (09:00)
[2020-02-11] MEDS ORDERED: AMLO-258 PO (13:21)
== END 2020-02-11 14:10 | disposition home or self-care (01) | DRG 750 ==
LOC: EDSTATUS 17:36 → B3A 02-04 02:49
PROVIDERS: ADMIT Psychiatry & Neurology Child & Adolescent Psychiatry; ATTEND Psychiatry & Neurology Child & Adolescent Psychiatry
DX: F25.1 Schizoaffective disorder, depressive type (principal); I50.9 Heart failure, unspecified; I11.0 Hypertensive heart disease with heart failure; G40.909 Epilepsy, unspecified, not intractable, without status epilepticus; J45.909 Unspecified asthma, uncomplicated; Z86.718 Personal history of other venous thrombosis and embolism; Z88.2 Allergy status to sulfonamides; Z88.8 Allergy status to other drugs, medicaments and biological substances
CPT/HCPCS: 84439; 84443; 90732

== ENCOUNTER 2020-02-03 18:58 | Emergency (ER) | payer MEDICAID ==
[~2020-02-03] VITALS: Ht 157.5 cm; Wt 72.7 kg
[2020-02-03 19:54] VITALS: BP 152/92
[2020-02-03 20:26] LABS: BASOPHILS % (AUTO) 1.1 % (0.0-2.0); EOSINOPHILS % (AUTO) 2.6 % (1.0-6.0); HEMATOCRIT 38.3 % (36-46); HEMOGLOBIN 12.7 g/dL (12.0-16.0); LYMPHOCYTES # (AUTO) 3.2 K/uL (1.0-4.8); LYMPHOCYTES % (AUTO) 42.5 % (22.0-44.0); MEAN CORPUSCULAR HEMOGLOBIN 28.5 pg (26.0-34.0); MEAN CORPUSCULAR HGB CONC 33.1 G/dL (31.0-37.0); MEAN CORPUSCULAR VOLUME 86 fL (80-100); MONOCYTES # (AUTO) 0.3 K/uL (0.1-1.0); MONOCYTES % (AUTO) 4.7 % (2.0-9.0); NEUTROPHILS # (AUTO) 3.7 K/uL (1.8-7.7); NEUTROPHILS % (AUTO) 49.1 % (40.0-70.0); PLATELET COUNT (AUTO) 331 K/uL (150-450); RED BLOOD CELL COUNT(AUTO) 4.45 MIL/uL (4.00-5.20); RED CELL DISTRIBUTION WIDTH 16.9 % (11.5-14.5)
[2020-02-03 20:34] LABS: ANION GAP 6 mmol/L (8-16); CALCIUM, TOTAL 8.7 mg/dL (8.8-10.5); CARBON DIOXIDE 28 mmol/L (22-29); CHLORIDE 104 mmol/L (98-107); CREATININE 0.86 mg/dL (0.60-1.30); GLOMERULAR FILTR. RATE CALC > 60 mL/min (>60); GLUCOSE,RANDOM 102 mg/dL (70-110); POTASSIUM 3.3 mmol/L (3.5-5.1); SODIUM SERUM 138 mmol/L (136-145); UREA NITROGEN, BLOOD 13 mg/dL (7-18)
[2020-02-03 20:50] LABS: ALANINE AMINOTRANSFERASE 18 U/L (12-78); ALBUMIN 3.3 g/dL (3.4-5.0); ALKALINE PHOSPHATASE 64 U/L (46-116); ASPARTATE AMINOTRANSFERASE 12 U/L (15-37); BILIRUBIN,TOTAL 0.1 mg/dL (0.1-1.0); HCG,QUANTITATIVE 1 mIU/mL (0-6)
[2020-02-03] MEDS ORDERED: POTASSIUM CHLORIDE 10% 40 MEQ/30 ML LIQUID UDCUP PO ONE (21:45)
== END 2020-02-03 23:41 | disposition other institution (70) ==
LOC: EMS 19:00
DX: F25.9 Schizoaffective disorder, unspecified (principal); E87.6 Hypokalemia; F31.9 Bipolar disorder, unspecified; J45.909 Unspecified asthma, uncomplicated; I10 Essential (primary) hypertension; F17.210 Nicotine dependence, cigarettes, uncomplicated; Z20.828 Contact with and (suspected) exposure to other viral communicable diseases; Z88.6 Allergy status to analgesic agent; Z88.1 Allergy status to other antibiotic agents; Z88.8 Allergy status to other drugs, medicaments and biological substances
CPT/HCPCS: 80053; 84702; 85025; 87426; 99285; G0480

== ENCOUNTER 2020-02-23 19:00 | Inpatient (IN) | payer MEDICAID ==
[~2020-02-23 19:00] MED LIST changes: +AMLO-258 PO
[2020-02-23] MEDS ORDERED: HALOPERIDOL 5 MG TABLET PO PRN (20:30)
[2020-02-23] MEDS ORDERED: INFLUENZA VIRUS VACCINE QVS 2020-21 (6MO+)/PF 60 MCG/0.5 ML SYRINGE IM ONE (21:15)
[2020-02-23] MEDS ORDERED: PNEUMOCOCCAL VACCINE POLYVALENT 0.5 ML VIAL [PPSV23] IM ONE (21:15)
[2020-02-24 02:16] LABS: COVID AG,FIA SOURCE NASAL SWAB
[2020-02-24 05:17] VITALS: BP 115/70
[2020-02-24] MEDS ORDERED: DOCUSATE SODIUM 100 MG CAPSULE PO PRN (07:30)
[2020-02-24] MEDS ORDERED: MAG HYDROX/AL HYDROX/SIMETH ES 30 ML SUSPENSION UDCUP PO PRN (07:30)
[2020-02-24] MEDS ORDERED: CloNIDine HCL 0.1 MG TABLET PO PRN (07:30)
[2020-02-24] MEDS ORDERED: PETROLATUM,WHITE 28 GM JELLY TP PRN (07:30)
[2020-02-24] MEDS ORDERED: MAGNESIUM HYDROXIDE SUSPENSION 30 ML UDCUP PO PRN (07:30)
[2020-02-24] MEDS ORDERED: ALBUTEROL SULFATE HFA 90 MCG/PUFF 8 GM INHALER IH PRN (07:30)
[2020-02-24] MEDS ORDERED: NICOTINE 14 MG/24 HOUR PATCH TD PRN (07:30)
[2020-02-24] MEDS ORDERED: ACETAMINOPHEN 325 MG TABLET PO PRN (07:30)
[2020-02-24] MEDS ORDERED: LOPERAMIDE HCL 2 MG CAPSULE PO PRN (07:30)
[2020-02-24] MEDS ORDERED: ONDANSETRON HCL 4 MG TABLET PO PRN (07:30)
[2020-02-24] MEDS ORDERED: GuaiFENesin/D-METHORPHAN [SUGAR-FREE] 200-20MG/10 ML SYRUP UDCUP PO PRN (07:30)
[2020-02-24] MEDS: SERTRALINE HCL 100 MG TABLET PO SCH ×2 (09:00→12:15)
[2020-02-24] MEDS: GABAPENTIN 300 MG CAPSULE PO SCH ×3 (09:00→17:00)
[2020-02-24] MEDS: OLANZapine 5 MG TABLET PO SCH ×2 (11:30→12:16)
[2020-02-24] MEDS: LORazepam 2 MG TABLET PO PRN (12:16)
[2020-02-24] MEDS: LURASIDONE HCL 40 MG TABLET PO SCH (17:00)
[2020-02-25 02:04] VITALS: BP 165/98
[2020-02-25] MEDS: ZOLPIDEM TARTRATE 10 MG TABLET PO PRN ×2 (02:11→23:51)
[2020-02-25] MEDS: LORazepam 2 MG TABLET PO PRN ×2 (02:11→08:49)
[2020-02-25 08:00] LABS: BASOPHILS % (AUTO) 0.3 % (0.0-2.0); EOSINOPHILS % (AUTO) 1.2 % (1.0-6.0); HEMATOCRIT 39.7 % (36-46); HEMOGLOBIN 13.2 g/dL (12.0-16.0); LYMPHOCYTES # (AUTO) 1.7 K/uL (1.0-4.8); LYMPHOCYTES % (AUTO) 17.4 % (22.0-44.0); MEAN CORPUSCULAR HEMOGLOBIN 29.2 pg (26.0-34.0); MEAN CORPUSCULAR HGB CONC 33.3 G/dL (31.0-37.0); MEAN CORPUSCULAR VOLUME 88 fL (80-100); MONOCYTES # (AUTO) 0.5 K/uL (0.1-1.0); MONOCYTES % (AUTO) 5.5 % (2.0-9.0); NEUTROPHILS # (AUTO) 7.3 K/uL (1.8-7.7); NEUTROPHILS % (AUTO) 75.6 % (40.0-70.0); PLATELET COUNT (AUTO) 311 K/uL (150-450); RED BLOOD CELL COUNT(AUTO) 4.52 MIL/uL (4.00-5.20); RED CELL DISTRIBUTION WIDTH 18.5 % (11.5-14.5)
[2020-02-25 08:11] LABS: HEMOGLOBIN A1C 5.3 % (3.8-5.6)
[2020-02-25 08:33] LABS: ALANINE AMINOTRANSFERASE 20 U/L (12-78); ALBUMIN 3.2 g/dL (3.4-5.0); ALKALINE PHOSPHATASE 66 U/L (46-116); ANION GAP 7 mmol/L (8-16); ASPARTATE AMINOTRANSFERASE 15 U/L (15-37); BILIRUBIN,TOTAL 0.2 mg/dL (0.1-1.0); CALCIUM, TOTAL 8.3 mg/dL (8.8-10.5); CARBON DIOXIDE 29 mmol/L (22-29); CHLORIDE 102 mmol/L (98-107); CHOL/HDL RATIO 2.8 (3.9-5.7); CHOLESTEROL 112 mg/dL (131-200); CREATININE 0.86 mg/dL (0.60-1.30); FREE T4 (FREE THYROXINE) 1.09 ng/dL (0.76-1.46); GLOMERULAR FILTR. RATE CALC > 60 mL/min (>60); GLUCOSE,RANDOM 119 mg/dL (70-110); HDL CHOLESTEROL 40 mg/dL (40-60); LDL CHOL (CALC.) 47 mg/dL (0-130); POTASSIUM 3.1 mmol/L (3.5-5.1); SODIUM SERUM 138 mmol/L (136-145); THYROID STIMULATING HORMONE 0.46 uIU/mL (0.36-3.74); TOTAL PROTEIN, SERUM 6.5 g/dL (6.4-8.2); TRIGLYCERIDES 127 mg/dL (15-150); UREA NITROGEN, BLOOD 9 mg/dL (7-18)
[2020-02-25] MEDS: GABAPENTIN 300 MG CAPSULE PO SCH ×2 (09:00→16:44)
[2020-02-25] MEDS: SERTRALINE HCL 100 MG TABLET PO SCH (09:00)
[2020-02-25] MEDS: OLANZapine 5 MG TABLET PO SCH (09:00)
[2020-02-25 16:17] VITALS: BP 137/87
[2020-02-25] MEDS: LORazepam 1 MG TABLET PO PRN ×2 (16:27→23:51)
[2020-02-25] MEDS: LURASIDONE HCL 40 MG TABLET PO SCH (16:39)
[2020-02-26 01:31] VITALS: BP 140/91
[2020-02-26] MEDS ORDERED: POTASSIUM CHLORIDE 20 MEQ ER TABLET PO ONE (08:30)
[2020-02-26 08:32] VITALS: BP 160/92
[2020-02-26] MEDS: OLANZapine 5 MG TABLET PO SCH (09:00)
[2020-02-26] MEDS: GABAPENTIN 300 MG CAPSULE PO SCH ×2 (09:00→16:50)
[2020-02-26] MEDS: SERTRALINE HCL 100 MG TABLET PO SCH (09:17)
[2020-02-26] MEDS: LORazepam 1 MG TABLET PO PRN ×2 (09:33→16:49)
[2020-02-26] MEDS: LURASIDONE HCL 40 MG TABLET PO SCH (16:50)
[2020-02-26 17:36] VITALS: BP 139/90
[2020-02-26] MEDS: ZOLPIDEM TARTRATE 10 MG TABLET PO PRN (22:15)
[2020-02-27 01:10] VITALS: BP 126/80
[2020-02-27] MEDS: LORazepam 1 MG TABLET PO PRN ×3 (01:11→16:44)
[2020-02-27 08:07] VITALS: BP 139/82
[2020-02-27] MEDS: SERTRALINE HCL 100 MG TABLET PO SCH (08:16)
[2020-02-27] MEDS: GABAPENTIN 300 MG CAPSULE PO SCH ×2 (08:42→16:45)
[2020-02-27] MEDS: OLANZapine 5 MG TABLET PO SCH (08:42)
[2020-02-27 16:07] VITALS: BP 116/72
[2020-02-27] MEDS: LURASIDONE HCL 40 MG TABLET PO SCH (16:45)
[2020-02-28 00:05] VITALS: BP 120/95
[2020-02-28] MEDS: ZOLPIDEM TARTRATE 10 MG TABLET PO PRN ×2 (00:21→21:04)
[2020-02-28] MEDS: LORazepam 1 MG TABLET PO PRN ×3 (00:21→16:34)
[2020-02-28 08:18] LABS: APPEARANCE,URINE CLOUDY (CLEAR); BILIRUBIN,URINE NEGATIVE (NEGATIVE); GLUCOSE, URINE (UA) NEGATIVE (NEGATIVE); KETONES,URINE NEGATIVE (NEGATIVE); LEUKOCYTE ESTERASE ,URINE MODERATE (NEGATIVE); NITRATE,URINE NEGATIVE (NEGATIVE); OCCULT BLOOD,URINE SMALL (NEGATIVE); PROTEIN,URINE TRACE (NEGATIVE); UROBILINOGEN,URINE 0.2 mg/dL (<=1.0)
[2020-02-28 08:26] LABS: AMPHET/METH SCREEN,URINE NEGATIVE (NEGATIVE); BARBITURATE SCREEN, URINE NEGATIVE (NEGATIVE); BENZODIAZEPINES SCREEN,URINE NEGATIVE (NEGATIVE); CANNABINOID SCREEN,URINE POSITIVE (NEGATIVE); COCAINE SCREEN,URINE NEGATIVE (NEGATIVE); METHADONE SCREEN, URINE NEGATIVE (NEGATIVE); OPIATE SCREEN,URINE NEGATIVE (NEGATIVE); PHENCYCLIDINE SCREEN,URINE NEGATIVE (NEGATIVE)
[2020-02-28 08:32] LABS: BACTERIA,URINE Moderate /HPF (None Seen); SQUAMOUS EPITHELIAL CELL,UR Many /LPF (None Seen)
[2020-02-28] MEDS: OLANZapine 5 MG TABLET PO SCH (09:00)
[2020-02-28] MEDS: GABAPENTIN 300 MG CAPSULE PO SCH ×2 (09:00→16:27)
[2020-02-28] MEDS: SERTRALINE HCL 100 MG TABLET PO SCH (10:08)
[2020-02-28 13:42] VITALS: BP 112/67
[2020-02-28] MEDS: LURASIDONE HCL 40 MG TABLET PO SCH (17:00)
[2020-02-29 03:54] VITALS: BP 105/66
[2020-02-29 08:52] VITALS: BP 158/97
[2020-02-29] MEDS: LORazepam 1 MG TABLET PO PRN (08:59)
[2020-02-29] MEDS: GABAPENTIN 300 MG CAPSULE PO SCH (08:59)
[2020-02-29] MEDS: OLANZapine 5 MG TABLET PO SCH (08:59)
[2020-02-29] MEDS: SERTRALINE HCL 100 MG TABLET PO SCH (08:59)
== END 2020-02-29 15:00 | disposition home or self-care (01) | DRG 750 ==
LOC: B3A 20:30
PROVIDERS: ADMIT Psychiatry & Neurology Child & Adolescent Psychiatry; ATTEND Psychiatry & Neurology Child & Adolescent Psychiatry
DX: F25.0 Schizoaffective disorder, bipolar type (principal); R45.851 Suicidal ideations; Z20.828 Contact with and (suspected) exposure to other viral communicable diseases; Z86.718 Personal history of other venous thrombosis and embolism; I50.9 Heart failure, unspecified; G40.909 Epilepsy, unspecified, not intractable, without status epilepticus; I11.0 Hypertensive heart disease with heart failure; Z88.1 Allergy status to other antibiotic agents; Z88.8 Allergy status to other drugs, medicaments and biological substances; Z91.14 Patient's other noncompliance with medication regimen; F19.10 Other psychoactive substance abuse, uncomplicated; E78.5 Hyperlipidemia, unspecified; F43.12 Post-traumatic stress disorder, chronic; E87.6 Hypokalemia
CPT/HCPCS: 80307; 83036; 84132; 84439; 84443; 87081; 87086; 87426

== ENCOUNTER 2020-02-24 13:25 | Emergency (ER) | payer MEDICAID ==
[~2020-02-24] VITALS: Ht 157.5 cm; Wt 72.7 kg
[2020-02-24 14:10] VITALS: BP 152/105
[2020-02-24 14:27] LABS: COVID AG,FIA SOURCE NASOPHARYNGEAL
== END 2020-02-24 17:52 | disposition home or self-care (01) ==
LOC: EMS 13:29
DX: F25.9 Schizoaffective disorder, unspecified (principal); J45.909 Unspecified asthma, uncomplicated; F31.9 Bipolar disorder, unspecified; I10 Essential (primary) hypertension; F17.210 Nicotine dependence, cigarettes, uncomplicated; Z20.828 Contact with and (suspected) exposure to other viral communicable diseases; Z88.6 Allergy status to analgesic agent; Z88.1 Allergy status to other antibiotic agents; Z88.8 Allergy status to other drugs, medicaments and biological substances
CPT/HCPCS: 87426

== ENCOUNTER 2020-06-08 17:02 | Inpatient (IN) | payer MEDICAID ==
[~2020-06-08] VITALS: Ht 157.5 cm; Wt 78.0 kg
[~2020-06-08 17:02] MED LIST changes: -AMLO-258 PO
[2020-06-08] MEDS ORDERED: HALOPERIDOL 5 MG TABLET PO PRN (18:30)
[2020-06-08 22:11] LABS: COVID AG,FIA SOURCE NASOPHARYNGEAL
[2020-06-09 00:55] VITALS: BP 138/77
[2020-06-09] MEDS ORDERED: INFLUENZA VIRUS VACCINE QVS 2020-21 (6MO+)/PF 60 MCG/0.5 ML SYRINGE IM ONE (01:15)
[2020-06-09] MEDS ORDERED: PNEUMOCOCCAL VACCINE POLYVALENT 0.5 ML VIAL [PPSV23] IM ONE (01:15)
[2020-06-09] MEDS: LORazepam 2 MG TABLET PO PRN ×3 (02:35→16:33)
[2020-06-09 08:07] VITALS: BP 126/70
[2020-06-09] MEDS: GABAPENTIN 300 MG CAPSULE PO SCH ×2 (09:00→16:23)
[2020-06-09] MEDS: SERTRALINE HCL 100 MG TABLET PO SCH (09:48)
[2020-06-09 16:15] VITALS: BP 150/89
[2020-06-09] MEDS ORDERED: LURASIDONE HCL 60 MG TABLET PO SCH (17:00)
[2020-06-10 04:15] VITALS: BP 132/76
[2020-06-10 08:12] VITALS: BP 124/69
[2020-06-10] MEDS: LORazepam 2 MG TABLET PO PRN ×2 (08:32→20:01)
[2020-06-10] MEDS: SERTRALINE HCL 100 MG TABLET PO SCH (08:32)
[2020-06-10] MEDS: GABAPENTIN 300 MG CAPSULE PO SCH ×2 (08:36→16:16)
[2020-06-10 17:56] VITALS: BP 145/99
[2020-06-10] MEDS: LURASIDONE HCL 80 MG TABLET PO SCH (20:01)
[2020-06-10] MEDS: ZOLPIDEM TARTRATE 10 MG TABLET PO PRN (20:01)
[2020-06-11 04:18] VITALS: BP 130/74
[2020-06-11] MEDS: SERTRALINE HCL 100 MG TABLET PO SCH (08:41)
[2020-06-11] MEDS: LORazepam 2 MG TABLET PO PRN ×3 (08:41→19:32)
[2020-06-11 13:01] VITALS: BP 115/73
[2020-06-11 16:37] VITALS: BP 132/88
[2020-06-11] MEDS: LURASIDONE HCL 80 MG TABLET PO SCH (20:01)
[2020-06-11] MEDS: ZOLPIDEM TARTRATE 10 MG TABLET PO PRN (21:20)
[2020-06-12 04:50] VITALS: BP 127/74
[2020-06-12] MEDS: LORazepam 2 MG TABLET PO PRN ×2 (07:34→12:42)
[2020-06-12 08:02] VITALS: BP 156/105
[2020-06-12] MEDS: SERTRALINE HCL 100 MG TABLET PO SCH (08:34)
[2020-06-12 13:02] VITALS: BP 143/86
[2020-06-12] MEDS ORDERED: LURA80TA2 PO (13:17)
== END 2020-06-12 14:05 | disposition home or self-care (01) | DRG 750 ==
LOC: B3A 21:03
PROVIDERS: ADMIT Psychiatry & Neurology Psychiatry; ATTEND Psychiatry & Neurology Psychiatry
DX: F25.9 Schizoaffective disorder, unspecified (principal); Z88.6 Allergy status to analgesic agent; I50.9 Heart failure, unspecified; I11.0 Hypertensive heart disease with heart failure; J45.909 Unspecified asthma, uncomplicated; F19.10 Other psychoactive substance abuse, uncomplicated; R56.9 Unspecified convulsions; Z20.822 Contact with and (suspected) exposure to COVID-19
CPT/HCPCS: 87426; A9575; Z7610

== ENCOUNTER 2020-06-14 18:24 | Inpatient (IN) | payer MEDICAID ==
[~2020-06-14] VITALS: Ht 157.5 cm; Wt 75.1 kg
[~2020-06-14 18:24] MED LIST changes: -GABA-1181 PO; -OLAN5TAB2 PO
[2020-06-14 21:51] LABS: COVID AG,FIA SOURCE NASOPHARYNGEAL
[2020-06-15] MEDS ORDERED: HALOPERIDOL 5 MG TABLET PO PRN (01:45)
[2020-06-15 02:32] VITALS: BP 142/84
[2020-06-15] MEDS ORDERED: PNEUMOCOCCAL VACCINE POLYVALENT 0.5 ML VIAL [PPSV23] IM ONE (02:45)
[2020-06-15] MEDS ORDERED: INFLUENZA VIRUS VACCINE QVS 2020-21 (6MO+)/PF 60 MCG/0.5 ML SYRINGE IM ONE (02:45)
[2020-06-15] MEDS: LORazepam 2 MG TABLET PO PRN ×3 (05:30→15:59)
[2020-06-15 08:00] VITALS: BP 124/78
[2020-06-15] MEDS: SERTRALINE HCL 100 MG TABLET PO SCH (09:45)
[2020-06-15] MEDS ORDERED: LOPERAMIDE HCL 2 MG CAPSULE PO PRN (11:45)
[2020-06-15] MEDS ORDERED: PETROLATUM,WHITE 28 GM JELLY TP PRN (11:45)
[2020-06-15] MEDS ORDERED: OMEPRAZOLE 20 MG CAPSULE PO PRN (11:45)
[2020-06-15] MEDS ORDERED: BENZOCAINE/MENTHOL LOZENGE PO PRN (11:45)
[2020-06-15] MEDS ORDERED: ALBUTEROL SULFATE HFA 90 MCG/PUFF 8 GM INHALER IH PRN (11:45)
[2020-06-15] MEDS ORDERED: ONDANSETRON HCL 4 MG TABLET PO PRN (11:45)
[2020-06-15] MEDS ORDERED: ACETAMINOPHEN 325 MG TABLET PO PRN (11:45)
[2020-06-15] MEDS ORDERED: MAGNESIUM HYDROXIDE SUSPENSION 30 ML UDCUP PO PRN (11:45)
[2020-06-15] MEDS ORDERED: MAG HYDROX/AL HYDROX/SIMETH ES 30 ML SUSPENSION UDCUP PO PRN (11:45)
[2020-06-15] MEDS ORDERED: DOCUSATE SODIUM 100 MG CAPSULE PO PRN (11:45)
[2020-06-15] MEDS ORDERED: BACITRACIN 28 GM OINTMENT TP PRN (11:45)
[2020-06-15] MEDS ORDERED: CloNIDine HCL 0.1 MG TABLET PO PRN (11:45)
[2020-06-15 16:40] VITALS: BP 126/85
[2020-06-15] MEDS: LURASIDONE HCL 80 MG TABLET PO SCH (20:41)
[2020-06-15] MEDS: ZOLPIDEM TARTRATE 10 MG TABLET PO PRN (20:41)
[2020-06-16] MEDS: LORazepam 2 MG TABLET PO PRN ×4 (07:52→19:16)
[2020-06-16 08:29] VITALS: BP 130/73
[2020-06-16] MEDS: SERTRALINE HCL 100 MG TABLET PO SCH (09:00)
[2020-06-16 16:15] VITALS: BP 119/76
[2020-06-16] MEDS: ZOLPIDEM TARTRATE 10 MG TABLET PO PRN (20:47)
[2020-06-16] MEDS: LURASIDONE HCL 80 MG TABLET PO SCH (20:47)
[2020-06-17] MEDS: LORazepam 2 MG TABLET PO PRN ×3 (08:46→20:03)
[2020-06-17] MEDS: SERTRALINE HCL 100 MG TABLET PO SCH (09:00)
[2020-06-17 16:09] VITALS: BP 120/67
[2020-06-17] MEDS: LURASIDONE HCL 80 MG TABLET PO SCH (20:04)
[2020-06-17] MEDS: ZOLPIDEM TARTRATE 10 MG TABLET PO PRN (20:05)
[2020-06-18 04:30] VITALS: BP 121/68
[2020-06-18 08:00] VITALS: BP 121/79
[2020-06-18] MEDS: LORazepam 2 MG TABLET PO PRN ×3 (08:19→18:48)
[2020-06-18] MEDS: SERTRALINE HCL 100 MG TABLET PO SCH (08:19)
[2020-06-18 16:32] VITALS: BP 139/86
[2020-06-18] MEDS ORDERED: NICOTINE 21 MG/24 HOUR PATCH TD ONE (17:30)
[2020-06-18] MEDS: LURASIDONE HCL 80 MG TABLET PO SCH (20:12)
[2020-06-18] MEDS: ZOLPIDEM TARTRATE 10 MG TABLET PO PRN (20:15)
[2020-06-19 00:18] VITALS: BP 127/88
[2020-06-19] MEDS: LORazepam 2 MG TABLET PO PRN ×4 (00:29→14:04)
[2020-06-19 08:23] VITALS: BP 131/84
[2020-06-19] MEDS ORDERED: NICOTINE 21 MG/24 HOUR PATCH TD SCH (09:00)
== END 2020-06-19 16:00 | disposition home or self-care (01) | DRG 750 ==
LOC: B3A 06-15 01:51
PROVIDERS: ADMIT Psychiatry & Neurology Psychiatry; ATTEND Psychiatry & Neurology Psychiatry
DX: F25.9 Schizoaffective disorder, unspecified (principal); Z20.822 Contact with and (suspected) exposure to COVID-19; I50.9 Heart failure, unspecified; I11.0 Hypertensive heart disease with heart failure; J45.909 Unspecified asthma, uncomplicated; Z86.718 Personal history of other venous thrombosis and embolism; Z28.21 Immunization not carried out because of patient refusal
CPT/HCPCS: 87081; 87426; Z7610

== ENCOUNTER 2020-06-29 07:57 | Emergency (ER) | payer MEDICAID ==
[~2020-06-29] VITALS: Ht 160 cm; Wt 73.6 kg
[~2020-06-29 07:57] MED LIST changes: +FLUO-191 PO; -LURA80TA2 PO; +QUET25TA PO; -SERT100T12 PO
[2020-06-29 08:05] VITALS: BP 138/94
== END 2020-06-29 09:56 | disposition home or self-care (01) ==
LOC: EMS 07:57
DX: F31.9 Bipolar disorder, unspecified (principal); F17.210 Nicotine dependence, cigarettes, uncomplicated; J45.909 Unspecified asthma, uncomplicated
CPT/HCPCS: 99284; 99285; Z7502

== ENCOUNTER 2020-08-11 20:14 | Emergency (ER) | payer MEDICAID ==
[~2020-08-11] VITALS: Ht 157.5 cm; Wt 72.7 kg
[2020-08-11 20:58] LABS: BASOPHILS % (AUTO) 0.7 % (0.0-2.0); EOSINOPHILS % (AUTO) 0.9 % (1.0-6.0); HEMATOCRIT 38.5 % (36-46); HEMOGLOBIN 12.7 g/dL (12.0-16.0); LYMPHOCYTES # (AUTO) 3.4 K/uL (1.0-4.8); LYMPHOCYTES % (AUTO) 33.6 % (22.0-44.0); MEAN CORPUSCULAR HEMOGLOBIN 29.2 pg (26.0-34.0); MEAN CORPUSCULAR HGB CONC 32.9 G/dL (31.0-37.0); MEAN CORPUSCULAR VOLUME 89 fL (80-100); MONOCYTES # (AUTO) 0.6 K/uL (0.1-1.0); MONOCYTES % (AUTO) 6.3 % (2.0-9.0); NEUTROPHILS # (AUTO) 5.9 K/uL (1.8-7.7); NEUTROPHILS % (AUTO) 58.5 % (40.0-70.0); PLATELET COUNT (AUTO) 255 K/uL (150-450); RED BLOOD CELL COUNT(AUTO) 4.34 MIL/uL (4.00-5.20); RED CELL DISTRIBUTION WIDTH 16.2 % (11.5-14.5)
[2020-08-11 21:06] LABS: ANION GAP 9 mmol/L (8-16); CALCIUM, TOTAL 9.4 mg/dL (8.8-10.5); CARBON DIOXIDE 29 mmol/L (22-29); CHLORIDE 109 mmol/L (98-107); CREATININE 1.09 mg/dL (0.60-1.30); GLOMERULAR FILTR. RATE CALC 54 mL/min (>60); GLUCOSE,RANDOM 104 mg/dL (70-110); POTASSIUM 3.8 mmol/L (3.5-5.1); SODIUM SERUM 147 mmol/L (136-145); UREA NITROGEN, BLOOD 20 mg/dL (7-18)
[2020-08-11 21:18] LABS: ALANINE AMINOTRANSFERASE 17 U/L (12-78); ALBUMIN 4.1 g/dL (3.4-5.0); ALKALINE PHOSPHATASE 66 U/L (46-116); ASPARTATE AMINOTRANSFERASE 8 U/L (15-37); BILIRUBIN,TOTAL 0.2 mg/dL (0.1-1.0); HCG,QUANTITATIVE < 1 mIU/mL (0-6)
[2020-08-11 22:37] LABS: COVID AG,FIA SOURCE NASOPHARYNGEAL
[2020-08-12] MEDS ORDERED: HALOPERIDOL 5 MG TABLET PO PRN (00:45)
[2020-08-12] MEDS ORDERED: LORazepam 2 MG TABLET PO PRN (00:45)
[2020-08-12] MEDS ORDERED: ZOLPIDEM TARTRATE 10 MG TABLET PO PRN (00:45)
[2020-08-12 05:35] VITALS: BP 126/77
== END 2020-08-12 12:45 | disposition admitted as inpatient to this hospital (09) ==
LOC: EMS 20:16
DX: F32.9 Major depressive disorder, single episode, unspecified (principal); R45.851 Suicidal ideations; J45.909 Unspecified asthma, uncomplicated; I10 Essential (primary) hypertension; F17.210 Nicotine dependence, cigarettes, uncomplicated; F12.90 Cannabis use, unspecified, uncomplicated; Z20.822 Contact with and (suspected) exposure to COVID-19; Z88.6 Allergy status to analgesic agent; Z88.5 Allergy status to narcotic agent; Z88.1 Allergy status to other antibiotic agents
CPT/HCPCS: 36415; 80053; 84702; 85025; 87426; 99285; G0480

== ENCOUNTER 2020-08-15 15:42 | Emergency (ER) | payer MEDICAID ==
[~2020-08-15] VITALS: Ht 160 cm; Wt 65.9 kg
[2020-08-15] MEDS ORDERED: LORazepam 1 MG TABLET PO ONE (16:30)
[2020-08-15] MEDS ORDERED: QUEtiapine FUMARATE 200 MG TABLET PO ONE (16:30)
[2020-08-15] MEDS ORDERED: QUEtiapine FUMARATE 25 MG TABLET PO ONE (16:45)
[2020-08-15 17:09] LABS: BASOPHILS % (AUTO) 0.7 % (0.0-2.0); EOSINOPHILS % (AUTO) 0.7 % (1.0-6.0); HEMATOCRIT 37.7 % (36-46); HEMOGLOBIN 12.7 g/dL (12.0-16.0); LYMPHOCYTES # (AUTO) 2.5 K/uL (1.0-4.8); LYMPHOCYTES % (AUTO) 29.7 % (22.0-44.0); MEAN CORPUSCULAR HEMOGLOBIN 29.5 pg (26.0-34.0); MEAN CORPUSCULAR HGB CONC 33.7 G/dL (31.0-37.0); MEAN CORPUSCULAR VOLUME 88 fL (80-100); MONOCYTES # (AUTO) 0.6 K/uL (0.1-1.0); NEUTROPHILS # (AUTO) 5.2 K/uL (1.8-7.7); NEUTROPHILS % (AUTO) 61.9 % (40.0-70.0); PLATELET COUNT (AUTO) 276 K/uL (150-450); RED CELL DISTRIBUTION WIDTH 16.1 % (11.5-14.5)
[2020-08-15 17:29] LABS: ANION GAP 13 mmol/L (8-16); CALCIUM, TOTAL 9.1 mg/dL (8.8-10.5); CARBON DIOXIDE 23 mmol/L (22-29); CHLORIDE 105 mmol/L (98-107); GLOMERULAR FILTR. RATE CALC > 60 mL/min (>60); GLUCOSE,RANDOM 144 mg/dL (70-110); POTASSIUM 3.4 mmol/L (3.5-5.1); SODIUM SERUM 141 mmol/L (136-145); UREA NITROGEN, BLOOD 20 mg/dL (7-18)
[2020-08-15 17:41] LABS: ALANINE AMINOTRANSFERASE 20 U/L (12-78); ALBUMIN 4.3 g/dL (3.4-5.0); ALKALINE PHOSPHATASE 67 U/L (46-116); ASPARTATE AMINOTRANSFERASE 21 U/L (15-37); BILIRUBIN,TOTAL 0.6 mg/dL (0.1-1.0); TOTAL PROTEIN, SERUM 8.2 g/dL (6.4-8.2)
[2020-08-15 17:45] LABS: AMPHET/METH SCREEN,URINE POSITIVE (NEGATIVE); BARBITURATE SCREEN, URINE NEGATIVE (NEGATIVE); BENZODIAZEPINES SCREEN,URINE NEGATIVE (NEGATIVE); CANNABINOID SCREEN,URINE POSITIVE (NEGATIVE); COCAINE SCREEN,URINE NEGATIVE (NEGATIVE); METHADONE SCREEN, URINE NEGATIVE (NEGATIVE); OPIATE SCREEN,URINE NEGATIVE (NEGATIVE)
[2020-08-15 18:37] LABS: APPEARANCE,URINE CLOUDY (CLEAR); BILIRUBIN,URINE NEGATIVE (NEGATIVE); GLUCOSE, URINE (UA) NEGATIVE (NEGATIVE); KETONES,URINE 15 mg/dL (NEGATIVE); LEUKOCYTE ESTERASE ,URINE SMALL (NEGATIVE); NITRATE,URINE POSITIVE (NEGATIVE); OCCULT BLOOD,URINE NEGATIVE (NEGATIVE); PH,URINE 5.5 (5.0-8.0); PROTEIN,URINE POS 1+ (NEGATIVE); UROBILINOGEN,URINE 0.2 mg/dL (<=1.0)
[2020-08-15 18:49] LABS: PHENCYCLIDINE SCREEN,URINE NEGATIVE (NEGATIVE)
[2020-08-15 18:59] LABS: RBC,URINE None Seen /HPF (0-2); WBC,URINE 26-50 /HPF (0-5)
[2020-08-15 19:00] LABS: BACTERIA,URINE Many /HPF (None Seen); SQUAMOUS EPITHELIAL CELL,UR Moderate /LPF (None Seen)
[2020-08-15] MEDS ORDERED: CEPHALEXIN MONOHYDRATE 500 MG CAPSULE PO ONE (19:00)
[2020-08-15] MEDS ORDERED: HYDROmorphone 2 MG/ML VIAL IVP ONE (20:15)
[2020-08-15 20:50] VITALS: BP 119/84
== END 2020-08-15 20:59 | disposition home or self-care (01) ==
LOC: EMS 15:42
DX: F31.9 Bipolar disorder, unspecified (principal); N39.0 Urinary tract infection, site not specified; F15.10 Other stimulant abuse, uncomplicated; F12.10 Cannabis abuse, uncomplicated; F41.9 Anxiety disorder, unspecified; I10 Essential (primary) hypertension; J45.909 Unspecified asthma, uncomplicated; F17.210 Nicotine dependence, cigarettes, uncomplicated; Z88.6 Allergy status to analgesic agent; Z88.5 Allergy status to narcotic agent; Z88.8 Allergy status to other drugs, medicaments and biological substances
CPT/HCPCS: 36415; 80053; 80307; 81001; 85025; 87086; 99284; G0480; J1170

== ENCOUNTER 2020-09-18 17:51 | Inpatient (IN) | payer MEDICAID ==
[2020-09-18] MEDS ORDERED: HALOPERIDOL 5 MG TABLET PO PRN (18:45)
[2020-09-18 18:55] LABS: COVID AG,FIA SOURCE NASAL SWAB
[2020-09-18] MEDS: LORazepam 2 MG TABLET PO PRN (21:04)
[2020-09-19] MEDS ORDERED: CloNIDine HCL 0.1 MG TABLET PO PRN (06:45)
[2020-09-19] MEDS ORDERED: ALBUTEROL SULFATE HFA 90 MCG/PUFF 8 GM INHALER IH PRN (06:45)
[2020-09-19] MEDS ORDERED: ONDANSETRON HCL 4 MG TABLET PO PRN (06:45)
[2020-09-19] MEDS ORDERED: DOCUSATE SODIUM 100 MG CAPSULE PO PRN (06:45)
[2020-09-19] MEDS ORDERED: OMEPRAZOLE 20 MG CAPSULE PO PRN (06:45)
[2020-09-19] MEDS ORDERED: PETROLATUM,WHITE 28 GM JELLY TP PRN (06:45)
[2020-09-19] MEDS ORDERED: ACETAMINOPHEN 325 MG TABLET PO PRN (06:45)
[2020-09-19] MEDS ORDERED: MAG HYDROX/AL HYDROX/SIMETH ES 30 ML SUSPENSION UDCUP PO PRN (06:45)
[2020-09-19] MEDS ORDERED: BACITRACIN 28 GM OINTMENT TP PRN (06:45)
[2020-09-19] MEDS ORDERED: BENZOCAINE/MENTHOL LOZENGE PO PRN (06:45)
[2020-09-19] MEDS ORDERED: LOPERAMIDE HCL 2 MG CAPSULE PO PRN (06:45)
[2020-09-19] MEDS ORDERED: MAGNESIUM HYDROXIDE SUSPENSION 30 ML UDCUP PO PRN (06:45)
[2020-09-19] MEDS: LORazepam 2 MG TABLET PO PRN ×4 (07:06→22:58)
[2020-09-19 08:26] VITALS: BP 116/70
[2020-09-19] MEDS: QUEtiapine FUMARATE 200 MG TABLET PO SCH ×2 (11:55→20:44)
[2020-09-19] MEDS: FLUoxetine HCL 20 MG CAPSULE PO SCH (11:56)
[2020-09-19 16:12] VITALS: BP 122/69
[2020-09-19] MEDS: ZOLPIDEM TARTRATE 10 MG TABLET PO PRN (20:53)
[2020-09-20 08:29] VITALS: BP 118/66
[2020-09-20] MEDS: LORazepam 2 MG TABLET PO PRN ×3 (08:42→17:21)
[2020-09-20] MEDS: QUEtiapine FUMARATE 200 MG TABLET PO SCH ×2 (08:42→20:30)
[2020-09-20] MEDS: FLUoxetine HCL 20 MG CAPSULE PO SCH (08:48)
[2020-09-20] MEDS: MUPIROCIN CALCIUM 2% 15 GM CREAM TP SCH (16:10)
[2020-09-20 16:21] VITALS: BP 106/73
[2020-09-20] MEDS: ZOLPIDEM TARTRATE 10 MG TABLET PO PRN (20:30)
[2020-09-21] MEDS: LORazepam 2 MG TABLET PO PRN ×4 (02:32→17:13)
[2020-09-21] MEDS: QUEtiapine FUMARATE 200 MG TABLET PO SCH (08:29)
[2020-09-21] MEDS: FLUoxetine HCL 20 MG CAPSULE PO SCH (08:34)
[2020-09-21] MEDS: MUPIROCIN CALCIUM 2% 15 GM CREAM TP SCH ×2 (08:34→16:29)
== END 2020-09-21 18:50 | disposition home or self-care (01) | DRG 750 ==
LOC: B3A 19:43
PROVIDERS: ADMIT Psychiatry & Neurology Psychiatry; ATTEND Psychiatry & Neurology Psychiatry
DX: F25.9 Schizoaffective disorder, unspecified (principal); R45.851 Suicidal ideations; G40.909 Epilepsy, unspecified, not intractable, without status epilepticus; K59.00 Constipation, unspecified; F41.9 Anxiety disorder, unspecified; G47.00 Insomnia, unspecified; J45.909 Unspecified asthma, uncomplicated; Z86.718 Personal history of other venous thrombosis and embolism; F12.90 Cannabis use, unspecified, uncomplicated; F17.200 Nicotine dependence, unspecified, uncomplicated; F32.9 Major depressive disorder, single episode, unspecified; Z20.822 Contact with and (suspected) exposure to COVID-19; Z88.8 Allergy status to other drugs, medicaments and biological substances; Z88.2 Allergy status to sulfonamides
CPT/HCPCS: 87081; 87426; Z7610

== ENCOUNTER 2020-10-09 15:44 | Inpatient (IN) | payer MEDICAID ==
[~2020-10-09] VITALS: Ht 160 cm; Wt 89.5 kg
[2020-10-09 16:40] LABS: COVID AG,FIA SOURCE NASOPHARYNGEAL
[2020-10-09 16:46] LABS: BASOPHILS % (AUTO) 0.7 % (0.0-2.0); EOSINOPHILS % (AUTO) 2.2 % (1.0-6.0); HEMATOCRIT 35.2 % (36-46); HEMOGLOBIN 11.7 g/dL (12.0-16.0); LYMPHOCYTES # (AUTO) 2.6 K/uL (1.0-4.8); LYMPHOCYTES % (AUTO) 26.8 % (22.0-44.0); MEAN CORPUSCULAR HEMOGLOBIN 28.9 pg (26.0-34.0); MEAN CORPUSCULAR HGB CONC 33.2 G/dL (31.0-37.0); MEAN CORPUSCULAR VOLUME 87 fL (80-100); MONOCYTES # (AUTO) 0.7 K/uL (0.1-1.0); MONOCYTES % (AUTO) 7.2 % (2.0-9.0); NEUTROPHILS # (AUTO) 6.2 K/uL (1.8-7.7); NEUTROPHILS % (AUTO) 63.1 % (40.0-70.0); PLATELET COUNT (AUTO) 295 K/uL (150-450); RED BLOOD CELL COUNT(AUTO) 4.04 MIL/uL (4.00-5.20); RED CELL DISTRIBUTION WIDTH 15.9 % (11.5-14.5)
[2020-10-09 16:58] LABS: CALCIUM, TOTAL 8.7 mg/dL (8.8-10.5); CREATININE 1.13 mg/dL (0.60-1.30); POTASSIUM 3.8 mmol/L (3.5-5.1)
[2020-10-09 17:04] LABS: ALBUMIN 3.5 g/dL (3.4-5.0); BILIRUBIN,TOTAL 0.2 mg/dL (0.1-1.0); TOTAL PROTEIN, SERUM 6.9 g/dL (6.4-8.2)
[2020-10-09] MEDS ORDERED: HALOPERIDOL 5 MG TABLET PO PRN (19:45)
[2020-10-09 21:08] LABS: AMPHET/METH SCREEN,URINE NEGATIVE (NEGATIVE); BARBITURATE SCREEN, URINE NEGATIVE (NEGATIVE); BENZODIAZEPINES SCREEN,URINE NEGATIVE (NEGATIVE); CANNABINOID SCREEN,URINE POSITIVE (NEGATIVE); COCAINE SCREEN,URINE NEGATIVE (NEGATIVE); METHADONE SCREEN, URINE NEGATIVE (NEGATIVE); OPIATE SCREEN,URINE NEGATIVE (NEGATIVE); PHENCYCLIDINE SCREEN,URINE NEGATIVE (NEGATIVE)
[2020-10-09] MEDS: QUEtiapine FUMARATE 200 MG TABLET PO SCH (21:37)
[2020-10-09] MEDS: LORazepam 2 MG TABLET PO PRN (21:38)
[2020-10-10] MEDS: ZOLPIDEM TARTRATE 10 MG TABLET PO PRN (01:33)
[2020-10-10] MEDS ORDERED: PNEUMOCOCCAL VACCINE POLYVALENT 0.5 ML VIAL [PPSV23] IM. ONE (02:30)
[2020-10-10] MEDS: LORazepam 2 MG TABLET PO PRN ×4 (04:17→17:55)
[2020-10-10] MEDS: FLUoxetine HCL 20 MG CAPSULE PO SCH (09:08)
[2020-10-10] MEDS: QUEtiapine FUMARATE 200 MG TABLET PO SCH ×2 (09:08→20:43)
[2020-10-10 17:58] VITALS: BP 141/90
[2020-10-10] MEDS ORDERED: MAGNESIUM HYDROXIDE SUSPENSION 30 ML UDCUP PO PRN (21:00)
[2020-10-10] MEDS ORDERED: DOCUSATE SODIUM 100 MG CAPSULE PO PRN (21:00)
[2020-10-10] MEDS ORDERED: PETROLATUM,WHITE 28 GM JELLY TP PRN (21:00)
[2020-10-10] MEDS ORDERED: BACITRACIN 28 GM OINTMENT TP PRN (21:00)
[2020-10-10] MEDS ORDERED: CloNIDine HCL 0.1 MG TABLET PO PRN (21:00)
[2020-10-10] MEDS ORDERED: ALBUTEROL SULFATE HFA 90 MCG/PUFF 8 GM INHALER IH PRN (21:00)
[2020-10-10] MEDS ORDERED: MAG HYDROX/AL HYDROX/SIMETH ES 30 ML SUSPENSION UDCUP PO PRN (21:00)
[2020-10-10] MEDS ORDERED: ONDANSETRON HCL 4 MG TABLET PO PRN (21:00)
[2020-10-10] MEDS ORDERED: ACETAMINOPHEN 325 MG TABLET PO PRN (21:00)
[2020-10-10] MEDS ORDERED: OMEPRAZOLE 20 MG CAPSULE PO PRN (21:00)
[2020-10-10] MEDS ORDERED: BENZOCAINE/MENTHOL LOZENGE PO PRN (21:00)
[2020-10-10] MEDS ORDERED: LOPERAMIDE HCL 2 MG CAPSULE PO PRN (21:00)
[2020-10-11 04:54] VITALS: BP 136/86
[2020-10-11] MEDS: QUEtiapine FUMARATE 200 MG TABLET PO SCH ×2 (08:15→20:26)
[2020-10-11] MEDS: FLUoxetine HCL 20 MG CAPSULE PO SCH (08:15)
[2020-10-11] MEDS: LORazepam 2 MG TABLET PO PRN ×4 (08:15→22:14)
[2020-10-11 16:44] VITALS: BP 140/105
[2020-10-11] MEDS: MUPIROCIN CALCIUM 2% 15 GM CREAM TP SCH (16:45)
[2020-10-11] MEDS: ZOLPIDEM TARTRATE 10 MG TABLET PO PRN (20:26)
[2020-10-12 05:44] VITALS: BP 141/102
[2020-10-12] MEDS: MUPIROCIN CALCIUM 2% 15 GM CREAM TP SCH ×3 (09:00→17:00)
[2020-10-12] MEDS: FLUoxetine HCL 20 MG CAPSULE PO SCH ×2 (09:00→09:50)
[2020-10-12 09:13] VITALS: BP 140/89
[2020-10-12] MEDS: QUEtiapine FUMARATE 200 MG TABLET PO SCH ×2 (09:51→20:07)
[2020-10-12] MEDS: LORazepam 2 MG TABLET PO PRN ×3 (10:12→21:10)
[2020-10-12 18:11] VITALS: BP 144/84
[2020-10-12] MEDS: ZOLPIDEM TARTRATE 10 MG TABLET PO PRN (21:10)
[2020-10-13 01:14] VITALS: BP 133/92
[2020-10-13] MEDS: LORazepam 2 MG TABLET PO PRN ×2 (02:43→08:18)
[2020-10-13] MEDS: QUEtiapine FUMARATE 200 MG TABLET PO SCH (08:18)
[2020-10-13] MEDS: FLUoxetine HCL 20 MG CAPSULE PO SCH (08:18)
[2020-10-13] MEDS: MUPIROCIN CALCIUM 2% 15 GM CREAM TP SCH (08:18)
== END 2020-10-13 11:00 | disposition home or self-care (01) | DRG 750 ==
LOC: EMS 15:44 → B3A 19:32
PROVIDERS: ADMIT Psychiatry & Neurology Psychiatry; ATTEND Psychiatry & Neurology Psychiatry
DX: F25.9 Schizoaffective disorder, unspecified (principal); R45.851 Suicidal ideations; G40.909 Epilepsy, unspecified, not intractable, without status epilepticus; F12.90 Cannabis use, unspecified, uncomplicated; F32.9 Major depressive disorder, single episode, unspecified; I10 Essential (primary) hypertension; F17.210 Nicotine dependence, cigarettes, uncomplicated; J45.909 Unspecified asthma, uncomplicated; F41.9 Anxiety disorder, unspecified; G47.00 Insomnia, unspecified; K59.00 Constipation, unspecified; Z20.822 Contact with and (suspected) exposure to COVID-19; Z28.21 Immunization not carried out because of patient refusal; Z88.2 Allergy status to sulfonamides; Z88.8 Allergy status to other drugs, medicaments and biological substances; Z86.718 Personal history of other venous thrombosis and embolism; Z79.899 Other long term (current) drug therapy
CPT/HCPCS: 80053; 85025; 87081; 87426; 99285; G0480

== ENCOUNTER 2020-10-14 11:56 | Emergency (ER) | payer MEDICAID ==
[~2020-10-14] VITALS: Ht 160 cm; Wt 77.3 kg
[2020-10-14 12:03] VITALS: BP 142/92
[2020-10-14 14:05] LABS: AMPHET/METH SCREEN,URINE NEGATIVE (NEGATIVE); BARBITURATE SCREEN, URINE NEGATIVE (NEGATIVE); BENZODIAZEPINES SCREEN,URINE NEGATIVE (NEGATIVE); CANNABINOID SCREEN,URINE POSITIVE (NEGATIVE); COCAINE SCREEN,URINE NEGATIVE (NEGATIVE); METHADONE SCREEN, URINE NEGATIVE (NEGATIVE); OPIATE SCREEN,URINE NEGATIVE (NEGATIVE)
[2020-10-14 14:06] LABS: PHENCYCLIDINE SCREEN,URINE NEGATIVE (NEGATIVE)
== END 2020-10-14 15:29 | disposition home or self-care (01) ==
LOC: EMS 12:01
DX: F31.9 Bipolar disorder, unspecified (principal); J45.909 Unspecified asthma, uncomplicated; I10 Essential (primary) hypertension; F17.210 Nicotine dependence, cigarettes, uncomplicated; F12.90 Cannabis use, unspecified, uncomplicated; Z88.6 Allergy status to analgesic agent; Z88.1 Allergy status to other antibiotic agents; Z91.018 Allergy to other foods
CPT/HCPCS: 99284

== ENCOUNTER 2020-10-20 16:51 | Inpatient (IN) | payer MEDICAID ==
[~2020-10-20] VITALS: Ht 160 cm; Wt 87.1 kg
[2020-10-20 18:38] LABS: GLUCOMETER DEV NAME(LOC) POC.BV
[2020-10-20 20:53] VITALS: BP 110/69
[2020-10-20 21:44] VITALS: BP 136/93
[2020-10-20] MEDS: ZOLPIDEM TARTRATE 10 MG TABLET PO PRN ×2 (22:07→22:35)
[2020-10-20] MEDS: LORazepam 2 MG TABLET PO PRN (22:07)
[2020-10-21] MEDS: LORazepam 2 MG TABLET PO PRN ×5 (04:15→21:02)
[2020-10-21 05:04] VITALS: BP 132/83
[2020-10-21] MEDS ORDERED: BENZOCAINE/MENTHOL LOZENGE PO PRN (15:45)
[2020-10-21] MEDS ORDERED: MAGNESIUM HYDROXIDE SUSPENSION 30 ML UDCUP PO PRN (15:45)
[2020-10-21] MEDS ORDERED: LOPERAMIDE HCL 2 MG CAPSULE PO PRN (15:45)
[2020-10-21] MEDS ORDERED: CloNIDine HCL 0.1 MG TABLET PO PRN (15:45)
[2020-10-21] MEDS ORDERED: MAG HYDROX/AL HYDROX/SIMETH ES 30 ML SUSPENSION UDCUP PO PRN (15:45)
[2020-10-21] MEDS ORDERED: OMEPRAZOLE 20 MG CAPSULE PO PRN (15:45)
[2020-10-21] MEDS ORDERED: PETROLATUM,WHITE 28 GM JELLY TP PRN (15:45)
[2020-10-21] MEDS ORDERED: BACITRACIN 28 GM OINTMENT TP PRN (15:45)
[2020-10-21] MEDS ORDERED: ONDANSETRON HCL 4 MG TABLET PO PRN (15:45)
[2020-10-21] MEDS ORDERED: DOCUSATE SODIUM 100 MG CAPSULE PO PRN (15:45)
[2020-10-21] MEDS ORDERED: ALBUTEROL SULFATE HFA 90 MCG/PUFF 8 GM INHALER IH PRN (15:45)
[2020-10-21] MEDS ORDERED: ACETAMINOPHEN 325 MG TABLET PO PRN (15:45)
[2020-10-21 16:27] VITALS: BP 127/82
[2020-10-21] MEDS: QUEtiapine FUMARATE 200 MG TABLET PO SCH (21:02)
[2020-10-21] MEDS: ZOLPIDEM TARTRATE 10 MG TABLET PO PRN (21:25)
[2020-10-22 03:12] VITALS: BP 128/81
[2020-10-22 07:52] LABS: APPEARANCE,URINE CLOUDY (CLEAR); BILIRUBIN,URINE NEGATIVE (NEGATIVE); GLUCOSE, URINE (UA) NEGATIVE (NEGATIVE); KETONES,URINE NEGATIVE (NEGATIVE); LEUKOCYTE ESTERASE ,URINE MODERATE (NEGATIVE); NITRATE,URINE POSITIVE (NEGATIVE); OCCULT BLOOD,URINE LARGE (NEGATIVE); PH,URINE 6.5 (5.0-8.0); PROTEIN,URINE SEE CONFIRM (NEGATIVE); UROBILINOGEN,URINE 0.2 mg/dL (<=1.0)
[2020-10-22 07:55] LABS: AMPHET/METH SCREEN,URINE NEGATIVE (NEGATIVE); BARBITURATE SCREEN, URINE NEGATIVE (NEGATIVE); BENZODIAZEPINES SCREEN,URINE NEGATIVE (NEGATIVE); CANNABINOID SCREEN,URINE POSITIVE (NEGATIVE); COCAINE SCREEN,URINE NEGATIVE (NEGATIVE); METHADONE SCREEN, URINE NEGATIVE (NEGATIVE); OPIATE SCREEN,URINE NEGATIVE (NEGATIVE)
[2020-10-22 07:56] LABS: PHENCYCLIDINE SCREEN,URINE NEGATIVE (NEGATIVE)
[2020-10-22 08:22] LABS: SULFOSALICYLIC ACID,URINE 3+ (Negative)
[2020-10-22 08:23] LABS: BACTERIA,URINE Moderate /HPF (None Seen); SQUAMOUS EPITHELIAL CELL,UR Few /LPF (None Seen)
[2020-10-22] MEDS: LORazepam 2 MG TABLET PO PRN ×4 (08:23→21:59)
[2020-10-22] MEDS: FLUoxetine HCL 20 MG CAPSULE PO SCH (08:23)
[2020-10-22] MEDS: QUEtiapine FUMARATE 200 MG TABLET PO SCH ×2 (08:23→20:15)
[2020-10-22 08:24] VITALS: BP 113/71
[2020-10-22 16:22] VITALS: BP 138/77
[2020-10-22] MEDS ORDERED: QUET200T PO (18:28)
[2020-10-22] MEDS: ZOLPIDEM TARTRATE 10 MG TABLET PO PRN (20:15)
[2020-10-23 06:55] VITALS: BP 135/75
[2020-10-23] MEDS: QUEtiapine FUMARATE 200 MG TABLET PO SCH ×2 (08:34→20:35)
[2020-10-23] MEDS: FLUoxetine HCL 20 MG CAPSULE PO SCH (08:34)
[2020-10-23] MEDS: LORazepam 2 MG TABLET PO PRN ×3 (08:35→20:45)
[2020-10-23] MEDS: MUPIROCIN CALCIUM 2% 15 GM CREAM TP SCH ×2 (09:00→16:33)
[2020-10-23 16:17] VITALS: BP 134/69
[2020-10-23] MEDS: NITROFURANTOIN/NITROFURAN MAC 100 MG CAPSULE [MACROBID] PO SCH ×2 (17:15→17:19)
[2020-10-23] MEDS: ZOLPIDEM TARTRATE 10 MG TABLET PO PRN (22:27)
[2020-10-24 04:20] VITALS: BP 124/78
[2020-10-24 08:30] VITALS: BP 123/71
[2020-10-24] MEDS: FLUoxetine HCL 20 MG CAPSULE PO SCH (09:00)
[2020-10-24] MEDS: NITROFURANTOIN/NITROFURAN MAC 100 MG CAPSULE [MACROBID] PO SCH ×2 (09:00→16:26)
[2020-10-24] MEDS: QUEtiapine FUMARATE 200 MG TABLET PO SCH ×2 (09:23→20:15)
[2020-10-24] MEDS: MUPIROCIN CALCIUM 2% 15 GM CREAM TP SCH ×2 (09:24→16:26)
[2020-10-24] MEDS: LORazepam 2 MG TABLET PO PRN ×3 (10:26→20:35)
[2020-10-24 16:19] VITALS: BP 132/89
[2020-10-24] MEDS: ZOLPIDEM TARTRATE 10 MG TABLET PO PRN (20:15)
[2020-10-25 02:08] VITALS: BP 122/79
[2020-10-25] MEDS: FLUoxetine HCL 20 MG CAPSULE PO SCH (08:41)
[2020-10-25] MEDS: QUEtiapine FUMARATE 200 MG TABLET PO SCH ×2 (08:41→20:19)
[2020-10-25] MEDS: NITROFURANTOIN/NITROFURAN MAC 100 MG CAPSULE [MACROBID] PO SCH ×2 (08:41→16:22)
[2020-10-25] MEDS: MUPIROCIN CALCIUM 2% 15 GM CREAM TP SCH ×2 (08:41→16:22)
[2020-10-25] MEDS: LORazepam 2 MG TABLET PO PRN ×4 (08:41→21:04)
[2020-10-25 08:43] VITALS: BP 113/57
[2020-10-25 16:26] VITALS: BP 111/76
[2020-10-25] MEDS: ZOLPIDEM TARTRATE 10 MG TABLET PO PRN (20:19)
[2020-10-26 04:25] VITALS: BP 114/72
[2020-10-26 08:26] VITALS: BP 133/77
[2020-10-26] MEDS: MUPIROCIN CALCIUM 2% 15 GM CREAM TP SCH ×2 (09:00→16:27)
[2020-10-26] MEDS: NITROFURANTOIN/NITROFURAN MAC 100 MG CAPSULE [MACROBID] PO SCH ×2 (09:00→16:25)
[2020-10-26] MEDS: FLUoxetine HCL 20 MG CAPSULE PO SCH (09:00)
[2020-10-26] MEDS: LORazepam 2 MG TABLET PO PRN ×2 (09:09→13:54)
[2020-10-26] MEDS: QUEtiapine FUMARATE 200 MG TABLET PO SCH ×2 (09:09→20:11)
[2020-10-26 16:12] VITALS: BP 138/86
[2020-10-26] MEDS: HALOPERIDOL 5 MG TABLET PO PRN (16:43)
[2020-10-26] MEDS: ZOLPIDEM TARTRATE 10 MG TABLET PO PRN (20:11)
[2020-10-26] MEDS: CIPROFLOXACIN HCL 500 MG TABLET PO SCH (20:11)
[2020-10-27] MEDS: LORazepam 2 MG TABLET PO PRN ×3 (00:52→19:09)
[2020-10-27 04:09] VITALS: BP 119/65
[2020-10-27] MEDS: MUPIROCIN CALCIUM 2% 15 GM CREAM TP SCH ×2 (08:29→16:51)
[2020-10-27] MEDS: QUEtiapine FUMARATE 200 MG TABLET PO SCH ×2 (08:29→20:57)
[2020-10-27] MEDS: FLUoxetine HCL 20 MG CAPSULE PO SCH (08:29)
[2020-10-27] MEDS: CIPROFLOXACIN HCL 500 MG TABLET PO SCH (08:29)
[2020-10-27 16:16] VITALS: BP 133/79
[2020-10-27] MEDS: ZOLPIDEM TARTRATE 10 MG TABLET PO PRN (21:00)
[2020-10-28 00:59] VITALS: BP 137/86
[2020-10-28 08:23] VITALS: BP 116/71
[2020-10-28] MEDS: FLUoxetine HCL 20 MG CAPSULE PO SCH (08:46)
[2020-10-28] MEDS: CIPROFLOXACIN HCL 500 MG TABLET PO SCH (08:46)
[2020-10-28] MEDS: MUPIROCIN CALCIUM 2% 15 GM CREAM TP SCH ×2 (08:47→16:18)
[2020-10-28] MEDS: QUEtiapine FUMARATE 200 MG TABLET PO SCH ×2 (08:47→20:10)
[2020-10-28] MEDS: LORazepam 2 MG TABLET PO PRN ×2 (10:42→16:09)
[2020-10-28] MEDS: HALOPERIDOL 5 MG TABLET PO PRN (16:09)
[2020-10-28 16:23] VITALS: BP 136/89
[2020-10-28] MEDS: ZOLPIDEM TARTRATE 10 MG TABLET PO PRN (20:10)
[2020-10-29 03:08] VITALS: BP 122/83
[2020-10-29 08:09] VITALS: BP 128/80
[2020-10-29] MEDS: QUEtiapine FUMARATE 200 MG TABLET PO SCH ×2 (08:39→20:23)
[2020-10-29] MEDS: CIPROFLOXACIN HCL 500 MG TABLET PO SCH (08:39)
[2020-10-29] MEDS: HALOPERIDOL 5 MG TABLET PO PRN ×2 (08:40→16:23)
[2020-10-29] MEDS: LORazepam 2 MG TABLET PO PRN ×2 (08:40→16:20)
[2020-10-29] MEDS: FLUoxetine HCL 20 MG CAPSULE PO SCH (09:00)
[2020-10-29] MEDS ORDERED: MUPIROCIN CALCIUM 2% 22 GM OINTMENT NASAL ONE (09:00)
[2020-10-29 16:31] VITALS: BP 121/69
[2020-10-30 03:48] VITALS: BP 125/70
[2020-10-30] MEDS: FLUoxetine HCL 20 MG CAPSULE PO SCH (09:00)
[2020-10-30] MEDS: CIPROFLOXACIN HCL 500 MG TABLET PO SCH (09:03)
[2020-10-30] MEDS: QUEtiapine FUMARATE 200 MG TABLET PO SCH ×2 (09:03→20:36)
[2020-10-30] MEDS: LORazepam 2 MG TABLET PO PRN ×2 (09:30→16:55)
[2020-10-30] MEDS: HALOPERIDOL 5 MG TABLET PO PRN ×2 (09:31→16:55)
[2020-10-30 17:28] VITALS: BP 133/89
[2020-10-31] MEDS: ZOLPIDEM TARTRATE 10 MG TABLET PO PRN ×2 (01:41→20:14)
[2020-10-31] MEDS: LORazepam 2 MG TABLET PO PRN ×3 (01:41→20:14)
[2020-10-31 02:00] VITALS: BP 125/91
[2020-10-31 08:24] VITALS: BP 110/63
[2020-10-31] MEDS: FLUoxetine HCL 20 MG CAPSULE PO SCH (09:00)
[2020-10-31] MEDS: QUEtiapine FUMARATE 200 MG TABLET PO SCH ×2 (09:25→20:14)
[2020-10-31] MEDS: HALOPERIDOL 5 MG TABLET PO PRN ×2 (09:26→20:15)
[2020-10-31 16:37] VITALS: BP 133/79
[2020-10-31] MEDS ORDERED: NICOTINE 14 MG/24 HOUR PATCH TD PRN (20:45)
[2020-11-01 00:26] VITALS: BP 128/70
[2020-11-01] MEDS: QUEtiapine FUMARATE 200 MG TABLET PO SCH ×2 (08:43→21:13)
[2020-11-01] MEDS: FLUoxetine HCL 20 MG CAPSULE PO SCH (08:53)
[2020-11-01] MEDS: LORazepam 2 MG TABLET PO PRN ×3 (10:09→21:14)
[2020-11-01] MEDS: HALOPERIDOL 5 MG TABLET PO PRN (16:54)
[2020-11-01 17:13] VITALS: BP 132/86
[2020-11-01] MEDS: ZOLPIDEM TARTRATE 10 MG TABLET PO PRN (21:14)
[2020-11-02] MEDS: QUEtiapine FUMARATE 200 MG TABLET PO SCH (08:11)
[2020-11-02] MEDS: LORazepam 2 MG TABLET PO PRN (08:11)
[2020-11-02] MEDS: FLUoxetine HCL 20 MG CAPSULE PO SCH (08:12)
[2020-11-02 08:31] VITALS: BP 129/91
== END 2020-11-02 14:45 | disposition home or self-care (01) | DRG 753 ==
LOC: B3A 20:28
PROVIDERS: ADMIT Psychiatry & Neurology Psychiatry; ATTEND Psychiatry & Neurology Psychiatry
DX: F31.9 Bipolar disorder, unspecified (principal); F22 Delusional disorders; R45.851 Suicidal ideations; F41.9 Anxiety disorder, unspecified; K59.00 Constipation, unspecified; J45.909 Unspecified asthma, uncomplicated; Z86.718 Personal history of other venous thrombosis and embolism; Z20.822 Contact with and (suspected) exposure to COVID-19
CPT/HCPCS: 80307; 81001; 81002; 87077; 87081; 87086; 87186

== ENCOUNTER 2021-05-08 08:05 | Emergency (ER) | payer MEDICAID ==
[~2021-05-08] VITALS: Ht 162.6 cm; Wt 81.8 kg
[2021-05-08] MEDS ORDERED: OLANZapine 5 MG TABLET PO ONE (09:15)
[2021-05-08] MEDS ORDERED: CloNIDine HCL 0.1 MG TABLET PO ONE (09:15)
[2021-05-08] MEDS ORDERED: LORazepam 1 MG TABLET PO ONE (09:15)
[2021-05-08 09:29] LABS: EOSINOPHILS % (AUTO) 2.5 % (1.0-6.0); HEMATOCRIT 37.6 % (36-46); HEMOGLOBIN 12.9 g/dL (12.0-16.0); LYMPHOCYTES # (AUTO) 2.3 K/uL (1.0-4.8); MEAN CORPUSCULAR HEMOGLOBIN 28.9 pg (26.0-34.0); MEAN CORPUSCULAR HGB CONC 34.2 G/dL (31.0-37.0); MEAN CORPUSCULAR VOLUME 84 fL (80-100); MONOCYTES # (AUTO) 0.4 K/uL (0.1-1.0); MONOCYTES % (AUTO) 4.9 % (2.0-9.0); NEUTROPHILS # (AUTO) 4.7 K/uL (1.8-7.7); NEUTROPHILS % (AUTO) 61.6 % (40.0-70.0); PLATELET COUNT (AUTO) 332 K/uL (150-450); RED BLOOD CELL COUNT(AUTO) 4.47 MIL/uL (4.00-5.20); RED CELL DISTRIBUTION WIDTH 15.7 % (11.5-14.5)
[2021-05-08 09:35] LABS: CALCIUM, TOTAL 8.5 mg/dL (8.8-10.5); CREATININE 1.04 mg/dL (0.60-1.30); POTASSIUM 4.1 mmol/L (3.5-5.1)
[2021-05-08 09:42] LABS: ALBUMIN 3.4 g/dL (3.4-5.0); BILIRUBIN,TOTAL 0.1 mg/dL (0.1-1.0)
[2021-05-08 09:43] LABS: APPEARANCE,URINE CLOUDY (CLEAR); BILIRUBIN,URINE NEGATIVE (NEGATIVE); GLUCOSE, URINE (UA) NEGATIVE (NEGATIVE); KETONES,URINE NEGATIVE (NEGATIVE); LEUKOCYTE ESTERASE ,URINE MODERATE (NEGATIVE); NITRATE,URINE NEGATIVE (NEGATIVE); OCCULT BLOOD,URINE MODERATE (NEGATIVE); PROTEIN,URINE POS 1+ (NEGATIVE); UROBILINOGEN,URINE 0.2 mg/dL (<=1.0)
[2021-05-08 09:53] LABS: BACTERIA,URINE Few /HPF (None Seen); SQUAMOUS EPITHELIAL CELL,UR Few /LPF (None Seen); WBC,URINE 51-100 /HPF (0-5)
[2021-05-08] MEDS ORDERED: HYDROCODONE/ACETAMINOPHEN 5-325 MG TABLET PO ONE (10:00)
[2021-05-08] MEDS: NITROFURANTOIN/NITROFURAN MAC 100 MG CAPSULE [MACROBID] PO ONE ×2 (10:45→10:51)
[2021-05-08] MEDS ORDERED: CEPHALEXIN MONOHYDRATE 500 MG CAPSULE PO ONE (10:45)
[2021-05-08 10:57] VITALS: BP 133/82
[2021-05-08 11:11] LABS: COVID AG,FIA SOURCE NASAL SWAB
== END 2021-05-08 12:18 | disposition home or self-care (01) ==
LOC: EMS 08:11
DX: N39.0 Urinary tract infection, site not specified (principal); F25.9 Schizoaffective disorder, unspecified; N20.9 Urinary calculus, unspecified; F41.9 Anxiety disorder, unspecified; F31.9 Bipolar disorder, unspecified; I82.403 Acute embolism and thrombosis of unspecified deep veins of lower extremity, bilateral; I10 Essential (primary) hypertension; F17.210 Nicotine dependence, cigarettes, uncomplicated; F12.90 Cannabis use, unspecified, uncomplicated; Z20.822 Contact with and (suspected) exposure to COVID-19
CPT/HCPCS: 80053; 81001; 83690; 84703; 85025; 87086; 99284

== ENCOUNTER 2021-05-31 20:36 | Emergency (ER) | payer MEDICAID ==
[~2021-05-31] VITALS: Ht 162.6 cm; Wt 84.5 kg
[2021-05-31 21:36] VITALS: BP 148/84
== END 2021-06-01 | disposition left against medical advice (07) ==
LOC: EMS 20:42
DX: Z00.00 Encounter for general adult medical examination without abnormal findings (principal); Z53.21 Procedure and treatment not carried out due to patient leaving prior to being seen by health care provider

== ENCOUNTER 2022-01-03 13:43 | Emergency (ER) | payer MEDICAID ==
[~2022-01-03] VITALS: Ht 157.5 cm; Wt 77.3 kg
[2022-01-03 14:40] LABS: COVID AG,FIA SOURCE NASAL SWAB
[2022-01-03 16:53] VITALS: BP 133/86
[2022-01-03 16:57] LABS: AMPHET/METH SCREEN,URINE NEGATIVE (NEGATIVE); BARBITURATE SCREEN, URINE NEGATIVE (NEGATIVE); BENZODIAZEPINES SCREEN,URINE NEGATIVE (NEGATIVE); CANNABINOID SCREEN,URINE POSITIVE (NEGATIVE); COCAINE SCREEN,URINE NEGATIVE (NEGATIVE); METHADONE SCREEN, URINE NEGATIVE (NEGATIVE); OPIATE SCREEN,URINE NEGATIVE (NEGATIVE)
[2022-01-03 17:12] LABS: PHENCYCLIDINE SCREEN,URINE NEGATIVE (NEGATIVE)
== END 2022-01-03 17:06 | disposition home or self-care (01) ==
LOC: EMS 13:47
DX: U07.1 COVID-19 (principal); F32.9 Major depressive disorder, single episode, unspecified; F41.9 Anxiety disorder, unspecified; F10.20 Alcohol dependence, uncomplicated; F12.90 Cannabis use, unspecified, uncomplicated; F15.10 Other stimulant abuse, uncomplicated; F17.210 Nicotine dependence, cigarettes, uncomplicated; J45.909 Unspecified asthma, uncomplicated; I10 Essential (primary) hypertension; I82.409 Acute embolism and thrombosis of unspecified deep veins of unspecified lower extremity; Z88.2 Allergy status to sulfonamides
CPT/HCPCS: 99283

== ENCOUNTER 2022-03-14 14:19 | Emergency (ER) | payer MEDICAID, OTHER ==
[~2022-03-14] VITALS: Ht 167.6 cm; Wt 75.0 kg
[2022-03-14] MEDS ORDERED: LORazepam 1 MG TABLET PO ONE (16:00)
[2022-03-14] MEDS ORDERED: RISP1TAB48 PO (16:03)
[2022-03-14 16:40] VITALS: BP 135/76
== END 2022-03-14 18:11 | disposition home or self-care (01) ==
LOC: EMS 14:21
DX: F20.9 Schizophrenia, unspecified (principal); F41.9 Anxiety disorder, unspecified; F69 Unspecified disorder of adult personality and behavior; F31.9 Bipolar disorder, unspecified; F10.20 Alcohol dependence, uncomplicated; F12.90 Cannabis use, unspecified, uncomplicated; F15.10 Other stimulant abuse, uncomplicated; F17.210 Nicotine dependence, cigarettes, uncomplicated; J45.909 Unspecified asthma, uncomplicated; I10 Essential (primary) hypertension; I82.403 Acute embolism and thrombosis of unspecified deep veins of lower extremity, bilateral; Z88.2 Allergy status to sulfonamides; Z86.59 Personal history of other mental and behavioral disorders
CPT/HCPCS: 99285

== ENCOUNTER 2022-09-01 09:08 | Inpatient (IN) | payer MEDICAID ==
[~2022-09-01] VITALS: Ht 157.5 cm; Wt 82.5 kg
[~2022-09-01 09:08] MED LIST changes: -FLUO-191 PO; -QUET25TA PO; +RISP1TAB48 PO
[2022-09-02] MEDS ORDERED: HALOPERIDOL 5 MG TABLET PO PRN (02:00)
[2022-09-02 02:30] VITALS: BP 130/90
[2022-09-02] MEDS ORDERED: PNEUMOCOCCAL VACCINE POLYVALENT 0.5 ML VIAL [PPSV23] IM. ONE (02:30)
[2022-09-02] MEDS: ZOLPIDEM TARTRATE 10 MG TABLET PO PRN (02:56)
[2022-09-02] MEDS ORDERED: GuaiFENesin/D-METHORPHAN [SUGAR-FREE] 200-20MG/10 ML SYRUP UDCUP PO PRN (06:15)
[2022-09-02] MEDS ORDERED: ACETAMINOPHEN 325 MG TABLET PO PRN (06:15)
[2022-09-02] MEDS ORDERED: HydrOXYzine PAMOATE 50 MG CAPSULE PO PRN (06:15)
[2022-09-02] MEDS ORDERED: PROMETHAZINE HCL 25 MG TABLET PO PRN (06:15)
[2022-09-02] MEDS ORDERED: MAG HYDROX/AL HYDROX/SIMETH ES 30 ML SUSPENSION UDCUP PO PRN (06:15)
[2022-09-02] MEDS ORDERED: LOPERAMIDE HCL 2 MG CAPSULE PO PRN (06:15)
[2022-09-02] MEDS ORDERED: MAGNESIUM HYDROXIDE SUSPENSION 30 ML UDCUP PO PRN (06:15)
[2022-09-02] MEDS ORDERED: TUBERCULIN, PURIFIED PROTEIN DERIVATIVE 5 TU/0.1 ML SYRINGE ID ONE (06:15)
[2022-09-02 08:34] VITALS: BP 115/66
[2022-09-02] MEDS: FLUoxetine HCL 20 MG CAPSULE PO SCH (08:54)
[2022-09-02] MEDS: THIAMINE 100 MG TABLET PO SCH ×2 (08:54→16:29)
[2022-09-02] MEDS: NALTREXONE HCL 50 MG TABLET PO SCH (08:54)
[2022-09-02] MEDS: LORazepam 2 MG TABLET PO PRN ×2 (08:56→16:29)
[2022-09-02] MEDS: OMEGA-3/DHA/EPA/FISH OIL 1,000 MG CAPSULE PO SCH (09:00)
[2022-09-02] MEDS ORDERED: FOLIC ACID 1 MG TABLET PO SCH (09:00)
[2022-09-02] MEDS ORDERED: MULTIVITAMINS WITH MINERALS, THERAPEUTIC TABLET PO SCH (09:00)
[2022-09-02] MEDS: MELATONIN 5 MG TABLET PO SCH (20:42)
[2022-09-02] MEDS: OLANZapine 5 MG RAPDIS TABLET PO SCH (20:42)
[2022-09-02] MEDS: TraZODone HCL 100 MG TABLET PO SCH (20:42)
[2022-09-02 20:48] VITALS: BP 123/88
[2022-09-02] MEDS ORDERED: DIAZEPAM 10 MG TABLET PO PRN (22:00)
[2022-09-03 02:00] VITALS: BP 129/78
[2022-09-03] MEDS: ZOLPIDEM TARTRATE 10 MG TABLET PO PRN ×2 (02:24→23:59)
[2022-09-03] MEDS: NALTREXONE HCL 50 MG TABLET PO SCH (09:00)
[2022-09-03] MEDS: OMEGA-3/DHA/EPA/FISH OIL 1,000 MG CAPSULE PO SCH (09:00)
[2022-09-03] MEDS: FLUoxetine HCL 20 MG CAPSULE PO SCH (09:00)
[2022-09-03] MEDS ORDERED: DIVALPROEX SODIUM 500 MG ER TABLET PO SCH (09:00)
[2022-09-03] MEDS: GABAPENTIN 300 MG CAPSULE PO SCH ×2 (09:00→13:00)
[2022-09-03 09:09] VITALS: BP 131/91
[2022-09-03 16:02] VITALS: BP 120/69
[2022-09-03] MEDS: LORazepam 2 MG TABLET PO PRN ×2 (16:06→20:50)
[2022-09-03 20:19] VITALS: BP 126/72
[2022-09-03] MEDS: OLANZapine 5 MG RAPDIS TABLET PO SCH (20:39)
[2022-09-03] MEDS: TraZODone HCL 100 MG TABLET PO SCH (20:40)
[2022-09-03] MEDS: MELATONIN 5 MG TABLET PO SCH (21:00)
[2022-09-04] MEDS: LORazepam 2 MG TABLET PO PRN ×2 (04:52→10:26)
[2022-09-04 08:29] VITALS: BP 130/70
[2022-09-04] MEDS: NALTREXONE HCL 50 MG TABLET PO SCH (08:30)
[2022-09-04] MEDS: SERTRALINE HCL 100 MG TABLET PO SCH (08:30)
[2022-09-04] MEDS: RisperiDONE 3 MG TABLET PO SCH (17:15)
[2022-09-04] MEDS: MUPIROCIN CALCIUM 2% 22 GM OINTMENT NASAL SCH (17:16)
[2022-09-04] MEDS ORDERED: LORazepam 1 MG TABLET PO PRN (18:45)
[2022-09-04 20:14] VITALS: BP 135/81
[2022-09-04] MEDS: MELATONIN 5 MG TABLET PO SCH (20:24)
[2022-09-04] MEDS ORDERED: QUEtiapine FUMARATE 200 MG TABLET PO SCH (21:00)
[2022-09-05 07:35] LABS: BASOPHILS % (AUTO) 1.1 % (0.0-2.0); EOSINOPHILS % (AUTO) 2.4 % (1.0-6.0); HEMATOCRIT 34.4 % (36-46); HEMOGLOBIN 11.2 g/dL (12.0-16.0); LYMPHOCYTES # (AUTO) 2.2 K/uL (1.0-4.8); LYMPHOCYTES % (AUTO) 42.4 % (22.0-44.0); MEAN CORPUSCULAR HEMOGLOBIN 26.3 pg (26.0-34.0); MEAN CORPUSCULAR HGB CONC 32.6 G/dL (31.0-37.0); MEAN CORPUSCULAR VOLUME 81 fL (80-100); MONOCYTES # (AUTO) 0.4 K/uL (0.1-1.0); MONOCYTES % (AUTO) 6.8 % (2.0-9.0); NEUTROPHILS # (AUTO) 2.5 K/uL (1.8-7.7); NEUTROPHILS % (AUTO) 47.3 % (40.0-70.0); PLATELET COUNT (AUTO) 260 K/uL (150-450); RED BLOOD CELL COUNT(AUTO) 4.26 MIL/uL (4.00-5.20)
[2022-09-05 07:47] LABS: HEMOGLOBIN A1C 5.4 % (3.8-5.6)
[2022-09-05 08:05] LABS: ALANINE AMINOTRANSFERASE 14 U/L (12-78); ALBUMIN 3.4 g/dL (3.4-5.0); ALKALINE PHOSPHATASE 66 U/L (46-116); ANION GAP 7 mmol/L (8-16); ASPARTATE AMINOTRANSFERASE 12 U/L (15-37); BILIRUBIN,TOTAL 0.3 mg/dL (0.1-1.0); CALCIUM, TOTAL 8.5 mg/dL (8.8-10.5); CARBON DIOXIDE 27 mmol/L (22-29); CHLORIDE 105 mmol/L (98-107); CHOL/HDL RATIO 4.2 (3.9-5.7); CHOLESTEROL 191 mg/dL (131-200); CREATININE 0.84 mg/dL (0.60-1.30); FREE T4 (FREE THYROXINE) 0.68 ng/dL (0.76-1.46); GLOMERULAR FILTR. RATE CALC > 60 mL/min (>60); GLUCOSE,RANDOM 78 mg/dL (70-110); HDL CHOLESTEROL 46 mg/dL (40-60); LDL CHOL (CALC.) 119 mg/dL (0-130); POTASSIUM 3.7 mmol/L (3.5-5.1); SODIUM SERUM 139 mmol/L (136-145); THYROID STIMULATING HORMONE 0.87 uIU/mL (0.36-3.74); TRIGLYCERIDES 130 mg/dL (15-150); UREA NITROGEN, BLOOD 18 mg/dL (7-18)
[2022-09-05] MEDS: NALTREXONE HCL 50 MG TABLET PO SCH (08:12)
[2022-09-05] MEDS: RisperiDONE 3 MG TABLET PO SCH (08:12)
[2022-09-05] MEDS: SERTRALINE HCL 100 MG TABLET PO SCH (08:12)
[2022-09-05] MEDS: MUPIROCIN CALCIUM 2% 22 GM OINTMENT NASAL SCH (08:15)
[2022-09-05 08:19] VITALS: BP 120/75
[2022-09-05] MEDS ORDERED: NALT50TA PO (14:59)
[2022-09-05] MEDS ORDERED: MELA5TAB40 PO (14:59)
[2022-09-05] MEDS ORDERED: QUET200T30 PO (14:59)
[2022-09-05] MEDS ORDERED: RISP3TAB63 PO (14:59)
[2022-09-05] MEDS ORDERED: SERT-440 PO (14:59)
== END 2022-09-05 16:10 | disposition home or self-care (01) | DRG 750 ==
LOC: B2X 09-02 02:02 → B2S 09-02 15:31
PROVIDERS: ADMIT Psychiatry & Neurology Psychiatry; ATTEND Psychiatry & Neurology Psychiatry
DX: F25.9 Schizoaffective disorder, unspecified (principal); R45.851 Suicidal ideations; E66.9 Obesity, unspecified; F12.90 Cannabis use, unspecified, uncomplicated; Z20.822 Contact with and (suspected) exposure to COVID-19; F17.200 Nicotine dependence, unspecified, uncomplicated; I10 Essential (primary) hypertension; J44.9 Chronic obstructive pulmonary disease, unspecified; Z55.9 Problems related to education and literacy, unspecified; Z59.9 Problem related to housing and economic circumstances, unspecified; Z63.9 Problem related to primary support group, unspecified; Z65.3 Problems related to other legal circumstances; Z81.8 Family history of other mental and behavioral disorders; Z86.718 Personal history of other venous thrombosis and embolism; Z88.2 Allergy status to sulfonamides; Z88.8 Allergy status to other drugs, medicaments and biological substances; Z91.018 Allergy to other foods; Z68.33 Body mass index [BMI] 33.0-33.9, adult; Z28.21 Immunization not carried out because of patient refusal; Z79.899 Other long term (current) drug therapy
CPT/HCPCS: 80053; 80061; 83036; 84439; 84443; 85025; 86592; 87081; Q9967